=== PATIENT | male | born 1970 ===

== ENCOUNTER 2024-11-17 13:25 | Inpatient (IN) | payer MEDICAID, SELFPAY ==
[2024-11-17] VITALS (40 sets, daily range): BP systolic 72–152; BP diastolic 49–91; PULSE 97–150; RESP 15–48; TEMP 36.7–38.4; O2SAT 84–100; BMI 19.8
[2024-11-17] MEDS: SODIUM CHLORIDE 0.9% 1000 ML 1,000 ML 999 ML IV (13:30)
--- NOTE | 2024-11-17 13:35 | PD.EDSOB ---
ED SOB =RME/HPI General Chief Complaint: Shortness of Breath/Dyspnea Stated Complaint: SOB Time Seen by Provider: 11/17/24 13:25 Arrival date/time: 11/17/24 13:25 Limitations: no limitations RME / HPI RME / HPI Narrative: 54 year old male with history of chronic respiratory failure, quadriplegia, coccidioidomycosis, hypertension, diabetes, hyperlipidemia, hydrocephalus with presence of cerebrospinal fluid device, PEG tube placement presents to the ED BIBA from [facility] for evaluation of shortness of breath today. Per medics report, [place] staff reported the patient has had intermittent fevers beginning 3 days ago. This morning noted temperature to be 102.8F and saturating 30% on room air. Per medics, on 15L Oxy mask the patients oxygen saturations were 82%, HR 160's. and prehospital BS 145. NH state at baseline patient is a GCS of 14/15 with periods of forgetfulness. No further history obtainable from patient 2/2 acuity. Related Data Home Medications ?Medication ?Instructions ?Recorded ?Confirmed bisacodyl 10 mg rectal suppository 10 mg KS Q72H PRN constipation 11/18/24 11/18/24 bisacodyl 10 mg rectal suppository 10 mg KS QDAY PRN constipation 11/18/24 11/18/24 (Dulcolax (bisacodyl)) lorazepam 0.5 mg tablet (Ativan) 0.5 mg PO Q6H PRN anxiety 11/18/24 11/18/24 magnesium hydroxide 400 mg/5 mL 30 ml PO Q72H PRN constipation 11/18/24 11/18/24 oral suspension (Milk of Magnesia) morphine 20 mg/5 mL (4 mg/mL) oral 1 mg PO Q2H PRN pain (scale score 11/18/24 11/18/24 solution 1-3) morphine 20 mg/5 mL (4 mg/mL) oral 2 mg PO Q2H PRN pain (scale score 11/18/24 11/18/24 solution 4-6) morphine 20 mg/5 mL (4 mg/mL) oral 4 mg PO Q2H PRN pain (scale score 11/18/24 11/18/24 solution 7-10) sodium phosphates 19 gram-7 118 ml KS Q72H PRN constipation 11/18/24 11/18/24 gram/118 mL enema (Fleet Enema) Previous Rx's ?Medication ?Instructions ?Recorded atorvastatin 40 mg tablet 40 mg PO HS #30 tabs 11/20/24 ferrous sulfate 325 mg (65 mg 325 mg PO QDAY #30 tabs 11/20/24 iron) tablet (Feosol) amoxicillin 875 mg-potassium 1 tab feeding tube BID pneumonia 2 11/21/24 clavulanate 125 mg tablet days #4 tabs fluconazole 200 mg tablet 400 mg (2 x 200 mg) feeding tube 11/21/24 QDAY disseminated coccidioidomycosis #30 tabs Allergies Allergy/AdvReac Type Severity Reaction Status Date / Time No Known Allergies Allergy Verified 11/17/24 22:32 Review of Systems Review of Systems ROS Unobtainable: unobtainable due to mental status Past Medical History Social History SMOKING STATUS: Unknown if ever smoked ED Exam General Limitations: Present no limitations General appearance: Present in distress (respiratory, increased respiratory rate, contracted) Head Head exam: Present atraumatic and normocephalic Eye Eye exam: Present normal appearance and EOMI ENT ENT exam: Present normal exam, normal oropharynx and mucous membranes moist Neck Neck exam: Present full ROM and other (Old tracheostomy scar wound appears to be open) Chest Chest inspection: Present normal inspection and symmetric chest wall rise Respiratory Respiratory exam: Present respiratory distress and other (Bilateral crackles, rhonchi, and rales from the upper lobes to lower lobes, increased respiratory rate ) Cardiovascular Cardiovascular exam: Present tachycardia and normal heart sounds Abdominal Exam Abdominal exam: Present soft, normal bowel sounds and other (G-tube noted ) Extremities Exam Extremities exam: Present other (contracture) Back Exam Back exam: Present normal inspection and full ROM Skin Skin exam: Present warm, intact, normal color and diaphoresis Course Quality Measures Possible source: pulmonary Blood cultures ordered: yes Antibiotic ordered: Yes sepsis Orders Category Date Time Status Bedside COVID-19 Antigen Test NOW Care 11/17/24 15:56 Active Bedside Influenza A&B Antigen Test NOW Care 11/17/24 16:00 Completed COVID-19 Screening Questionnaire NOW Care 11/17/24 15:18 Active Marketing Co Op NOW Care 11/17/24 13:33 Active Continuous Pulse Oximetry NOW Care 11/17/24 13:33 Completed Decision to Admit X1 Care 11/17/24 15:18 Completed EKG (ED ONLY) *Do not use* NOW Care 11/17/24 13:33 Completed Insert IV NOW Care 11/17/24 13:33 Active Intubation NOW Care 11/17/24 13:45 Completed Referral Respiratory Therapy Stat Cons 11/17/24 13:33 Active EKG (ED Only) Stat Exams 11/17/24 13:33 Ordered XR chest 1V post procedure Stat Exams 11/17/24 13:49 Completed ABG [Arterial Blood Gas] Stat Lab 11/17/24 15:48 Completed Arterial Blood Gas Stat Lab 11/17/24 14:05 Completed B-Type Natriuretic Peptide Stat Lab 11/17/24 14:05 Completed Blood Culture (Lab) Stat Lab 11/17/24 14:05 Results CBC Stat Lab 11/17/24 14:05 Completed Comprehensive Metabolic Panel Stat Lab 11/17/24 14:05 Completed Partial Thromboplastin Time Stat Lab 11/17/24 14:05 Completed Prothrombin Time with INR Stat Lab 11/17/24 14:05 Completed Sputum Culture and Gram Stain Stat Lab 11/17/24 13:56 Completed Troponin I Stat Lab 11/17/24 14:05 Completed ALBUTEROL RT 0.5ml [Proventil Rt 0.5ml] Med 11/17/24 13:33 Discontinued 5 mg INH X1 ONE Azithromycin Inj [Zithromax Inj] 500 mg Med 11/17/24 13:37 Discontinued Sodium Chloride 0.9% 250 ml [Ns] 250 ml IV X1 Azithromycin Inj [Zithromax Inj] 500 mg Med 11/17/24 15:00 Discontinued Sodium Chloride 0.9% 250 ml [Ns] 250 ml IV X1 Dexamethasone Inj [Decadron Inj] Med 11/17/24 13:33 Discontinued 10 mg PO X1 ONE Etomidate Inj [Amidate Inj] Med 11/17/24 13:35 Discontinued 20 mg .ROUTE .STK-MED ONE Etomidate Inj [Amidate Inj] Med 11/17/24 13:35 Discontinued 20 mg IVP X1 ONE Pamidronate Inj [Aredia Inj] Med 11/17/24 15:23 Discontinued 60 mg IV X1 ONE Pamidronate Inj [Aredia Inj] 60 mg Med 11/17/24 15:45 Discontinued Dextrose 5%-Water [D5w] 1,000 ml IV X1 Pamidronate Inj [Aredia Inj] 60 mg Med 11/17/24 15:30 Discontinued Sodium Chloride 0.9% 500 ml [Ns] 500 ml IV X1 Propofol 1,000 mg Ivpb [Diprivan Ivpb] Med 11/17/24 13:54 Discontinued 1,000 mg in 100 ml IV 5 mcg/kg/min Propofol Inj [Diprivan Inj] Med 11/17/24 13:53 Discontinued 80 mg IV X1 ONE Sodium Chloride 0.9% 1000 ml [Ns] 1,000 ml Med 11/17/24 13:33 Discontinued IV 999 mls/hr Sodium Chloride Rt Nicolette 0.9% [NS Rt Nicolette 0.9%] Med 11/17/24 13:33 Active 3 ml INH PRN PRN Sodium Chloride Rt Nicolette 10% [NS Rt Nicolette 10%] Med 11/17/24 13:54 Discontinued 5 ml INH X1 ONE Succinylcholine Inj [Anectine Inj] Med 11/17/24 13:35 Discontinued 100 mg IV X1 ONE Succinylcholine Inj [Anectine Inj] Med 11/17/24 13:35 Discontinued 200 mg .ROUTE .STK-MED ONE cefTRIAXone [Rocephin] 2 gm Med 11/17/24 14:30 Discontinued SODIUM CHLORIDE 0.9% (Popper) [Ns 0.9% (P)] 50 ml IV X1 cefTRIAXone/D5w 2gm [Rocephin/d5w 2gm] Med 11/17/24 14:45 Discontinued 2 gm in 50 ml IV X1 Mechanical [Volume Ventilator] Stat RT 11/17/24 Active Oxygen Delivery NOW RT 11/17/24 13:33 Active Sputum Induction PRN RT 11/17/24 14:00 Ordered Vital Signs Vital signs: Vital Signs Pulse Rate 123 H 11/17/24 13:25 Respiratory Rate 36 H 11/17/24 13:25 Pulse Oximetry (%) 84 L 11/17/24 13:25 Oxygen Flow Rate 15 11/17/24 13:25 Procedures -ED Intubation Time out performed: Yes sedative: Etomidate Mg Given: 20 paralytic: Succinylcholine Mg Given: 100 Laryngoscope: fiber optic video scope Assist Device Used: fiber optic device ET Tube Size: 7 ET Tube Uncuffed: No Tube Secured Depth (cm): 23 Tube Secured Location: teeth Tube Placement Confirmation: visualized tube passing through cords, equal breath sounds bilaterally, no breath sounds over epigastrium and confirmation by capnometry Patient Tolerated Procedure: well and no complications Intubation Complications: none Shortness of Breath / Dyspnea MDM Narrative MDM Narrative:: Andie Lima am scribing for and in the presence of Dr. Rivera. Patient data External records reviewed:: EMS form and Jail records (I reviewed PMHx and medication list from [facility] ) Clinical information provided by:: EMS Social determinants that could affect healthcare access:: housing ([place] resident ) Patient has the following chronic illnesses:: chronic respiratory failure, quadriplegia, coccidioidomycosis, hypertension, diabetes, hyperlipidemia, hydrocephalus with presence of cerebrospinal fluid device, G-tube placement How is presenting disease/condition affected by chronic disease/condition?: exacerbated by Evaluation data The following diagnostics were reviewed and interpreted by me:: lab results, radiology exam(s) and EKG tracing(s) (EKG 11/17/2024 @ 13:36. Sinus tachycardia, rate 133, nonspecific ST and T-wave abnormality, no STEMI ) Lab and/or radiology exams considered but not ordered:: None Interpretation Summary: Ordering Physician: Tr Rivera MD Date of Service: 11/17/24 Procedure(s): XR chest 1V post procedure Accession Number(s): [id number] cc: Tr Rivera MD; Jose Gomes MD~ Examination: AP chest single view TECHNIQUE: AP portable semiupright chest single view INDICATIONS: Hypoxic respiratory failure today post intubation FINDINGS: Normal heart size Pneumonia left base Endotracheal tube tip 5.8 cm above micki. Orogastric tube in the stomach, the tip is below the level of the film Right ventricular peritoneal shunt tube IMPRESSION: Pneumonia left base, consider aspiration pneumonia Endotracheal tube tip 5.8 cm above micki Dictated By: Jose Gomes MD Signed By: <Electronically signed by Jose Gomes MD in OV> 11/17/24 1405 Medications / Prescriptions Medications or Prescriptions considered but not ordered:: None Medication administrations:: Medication Administration History Acetaminophen (Acetaminophen Nicolette 325 Mg/10 Ml Udc) 650 mg GT Q4HR PRN; Protocol PRN Reason: Pain Or Fever > 100.3 Stop: 12/18/24 07:33 Atorvastatin Calcium (Atorvastatin Calcium 20 Mg Tablet) 40 mg PO HS MCKENZIE Stop: 12/20/24 20:59 Last Admin: 11/22/24 21:04 Dose: 40 mg Documented By: Admin: 11/21/24 20:14 Dose: 40 mg Documented By: Admin: 11/20/24 20:02 Dose: 40 mg Documented By: NELLI Balsam Elizabeth/Julian Oil (Balsam Gregory/Julian Oil (Venelex) 60 Gm Tube) 0 gm TOP BID MCKENZIE Stop: 12/18/24 20:59 Last Admin: 11/22/24 21:06 Dose: 1 appln Documented By: Admin: 11/22/24 08:01 Dose: 1 appln Documented By: Admin: 11/21/24 20:14 Dose: 1 appln Documented By: Admin: 11/21/24 09:02 Dose: 1 appln Documented By: Admin: 11/20/24 20:03 Dose: 1 appln Documented By: Admin: 11/20/24 09:22 Dose: 1 appln Documented By: Admin: 11/19/24 20:14 Dose: 1 appln Documented By: Admin: 11/19/24 08:36 Dose: 1 appln Documented By: Admin: 11/18/24 21:03 Dose: 1 appln Documented By: JOHN Bisacodyl (Bisacodyl 10 Mg Supp) 10 mg KS Q72H PRN; Protocol PRN Reason: constipation Stop: 12/18/24 15:20 Desmopressin Acetate (Desmopressin Acet Inj 4 Mcg/Ml Vial 10ml) 2 mcg SC DAILY MCKENZIE Stop: 12/23/24 08:59 Dextrose (Dextrose 50%-Water Inj 50 Ml Syringe) 50 ml IV Q15MIN PRN PRN Reason: BG <50 OR BG <70 & pt unresponsive Stop: 12/17/24 18:24 Enoxaparin Sodium (Enoxaparin Sod Inj 40 Mg/0.4 Ml Syringe) 40 mg SC QDAY MCKENZIE Stop: 12/01/24 17:14 Last Admin: 11/22/24 08:00 Dose: 40 mg Documented By: Admin: 11/21/24 08:55 Dose: 40 mg Documented By: Admin: 11/20/24 09:22 Dose: 40 mg Documented By: Admin: 11/19/24 08:36 Dose: 40 mg Documented By: Admin: 11/18/24 08:23 Dose: 40 mg Documented By: Admin: 11/17/24 18:14 Dose: 40 mg Documented By: FLACO Fluconazole (Fluconazole Susp 40 Mg/Ml Ml) 400 mg GT BID MCKENZIE Stop: 11/27/24 20:59 Last Admin: 11/22/24 21:05 Dose: 400 mg Documented By: Admin: 11/22/24 08:00 Dose: 400 mg Documented By: Admin: 11/21/24 20:44 Dose: 400 mg Documented By: Admin: 11/21/24 09:02 Dose: 400 mg Documented By: Admin: 11/20/24 20:02 Dose: 400 mg Documented By: NELLI Glucagon (Glucagon Inj 1 Mg Vial) 1 mg IM Q15MIN PRN PRN Reason: BG <70, and no IV access Ceftriaxone Sodium/Dextrose (Rocephin/D5w 1gm Iv Premix) 1 gm in 50 mls @ 100 mls/hr IV QDAY MCKENZIE Stop: 11/26/24 09:16 Last Infusion: 11/22/24 19:21 Dose: Infused Documented By: Admin: 11/22/24 08:00 Dose: 100 mls/hr Documented By: Infusion: 11/21/24 19:37 Dose: Infused Documented By: Admin: 11/21/24 08:56 Dose: 100 mls/hr Documented By: Infusion: 11/20/24 09:51 Dose: Infused Documented By: Admin: 11/20/24 09:21 Dose: 100 mls/hr Documented By: Infusion: 11/19/24 10:18 Dose: Infused Documented By: Admin: 11/19/24 09:34 Dose: 100 mls/hr Documented By: DOROTHEA Dextrose (D5w) 1,000 mls @ 75 mls/hr IV .[id number] MCKENZIE Stop: 12/20/24 00:59 Last Admin: 11/22/24 21:04 Dose: 75 mls/hr Documented By: Infusion: 11/22/24 19:37 Dose: Infused Documented By: Admin: 11/22/24 06:17 Dose: 75 mls/hr Documented By: Infusion: 11/22/24 06:17 Dose: Infused Documented By: Admin: 11/21/24 17:49 Dose: 75 mls/hr Documented By: Infusion: 11/21/24 17:49 Dose: Infused Documented By: Admin: 11/21/24 05:00 Dose: 75 mls/hr Documented By: Infusion: 11/21/24 04:09 Dose: Infused Documented By: Admin: 11/20/24 14:49 Dose: 75 mls/hr Documented By: Infusion: 11/20/24 14:15 Dose: Infused Documented By: Admin: 11/20/24 00:55 Dose: 75 mls/hr Documented By: NELLI Insulin Human Lispro (Insulin Lispro (Admelog) 1 Unit/0.01 Ml Unit) 0 unit SC Q6HR MCKENZIE; Protocol Stop: 12/17/24 18:29 Last Admin: 11/23/24 05:14 Dose: Not Given Documented By: KAA Non-Admin Reason: Per Protocol Admin: 11/22/24 23:56 Dose: Not Given Documented By: KAA Non-Admin Reason: Per Protocol Admin: 11/22/24 17:37 Dose: Not Given Documented By: WL Non-Admin Reason: Per Protocol Admin: 11/22/24 12:21 Dose: Not Given Documented By: WL Non-Admin Reason: Per Protocol Admin: 11/22/24 05:04 Dose: Not Given Documented By: KAA Non-Admin Reason: Per Protocol Admin: 11/22/24 00:41 Dose: Not Given Documented By: KAA Non-Admin Reason: Per Protocol Admin: 11/21/24 17:49 Dose: Not Given Documented By: ER Non-Admin Reason: BS 132 Admin: 11/21/24 13:21 Dose: Not Given Documented By: ER Non-Admin Reason: BS 115 Admin: 11/21/24 05:03 Dose: Not Given Documented By: CMC Non-Admin Reason: Per Protocol Admin: 11/20/24 23:39 Dose: Not Given Documented By: CMC Non-Admin Reason: Per Protocol Admin: 11/20/24 18:04 Dose: 1 unit Documented By: CAROLINE Co-signed By: TRUPTI Admin: 11/20/24 12:30 Dose: Not Given Documented By: DL Non-Admin Reason: Per Protocol Admin: 11/20/24 05:09 Dose: Not Given Documented By: CMC Non-Admin Reason: Per Protocol Admin: 11/19/24 23:07 Dose: Not Given Documented By: CMC Non-Admin Reason: Per Protocol Admin: 11/19/24 17:35 Dose: Not Given Documented By: DA Non-Admin Reason: Per Protocol Admin: 11/19/24 12:40 Dose: Not Given Documented By: KD Non-Admin Reason: Per Protocol Admin: 11/19/24 05:28 Dose: Not Given Documented By: JOHN Non-Admin Reason: Per Protocol Admin: 11/19/24 00:36 Dose: Not Given Documented By: JOHN Non-Admin Reason: Per Protocol Admin: 11/18/24 17:19 Dose: Not Given Documented By: DOROTHEA Non-Admin Reason: Per Protocol Admin: 11/18/24 11:19 Dose: Not Given Documented By: DOROTHEA Non-Admin Reason: Per Protocol Admin: 11/18/24 05:47 Dose: Not Given Documented By: JOHN Non-Admin Reason: Per Protocol Admin: 11/18/24 00:37 Dose: Not Given Documented By: JOHN Non-Admin Reason: Per Protocol Admin: 11/17/24 20:53 Dose: Not Given Documented By: JOHN Non-Admin Reason: not administered by previous unit Lactulose (Lactulose Syrup 20 Gm/30 Ml Udc) 10 gm GT DAILY MCKENZIE; Protocol Stop: 12/20/24 08:59 Last Admin: 11/22/24 08:00 Dose: 10 gm Documented By: Admin: 11/21/24 08:54 Dose: 10 gm Documented By: Admin: 11/20/24 09:22 Dose: 10 gm Documented By: CAROLINE Lansoprazole (Lansoprazole 30 Mg Tab.Rap.) 30 mg GT QDAY MCKENZIE Stop: 12/17/24 17:14 Last Admin: 11/22/24 08:02 Dose: 30 mg Documented By: Admin: 11/21/24 08:55 Dose: 30 mg Documented By: ER Morphine Sulfate (Morphine Sulf Liqd 10 Mg/5 Ml Udc) 4 mg GT Q2H PRN PRN Reason: pain (scale score 7-10) Stop: 11/23/24 15:28 Morphine Sulfate (Morphine Sulf Liqd 10 Mg/5 Ml Udc) 1 mg GT Q2H PRN; Protocol PRN Reason: pain (scale score 1-3) Stop: 11/23/24 15:28 Last Admin: 11/19/24 08:36 Dose: 1 mg Documented By: DOROTHEA Morphine Sulfate (Morphine Sulf Liqd 10 Mg/5 Ml Udc) 2 mg GT Q2H PRN PRN Reason: pain (scale score 4-6) Stop: 11/23/24 15:24 Last Admin: 11/23/24 05:07 Dose: 2 mg Documented By: Admin: 11/22/24 12:52 Dose: 2 mg Documented By: DOROTHEA Sodium Chloride (Sodium Chloride Rt Nicolette 0.9% 3 Ml Nebu) 3 ml INH PRN PRN PRN Reason: SOLN Stop: 12/17/24 13:32 Last Admin: 11/17/24 14:48 Dose: 3 ml Documented By: AURA Discontinued Medications Albuterol (Albuterol Rt 2.5 Mg/0.5 Ml Nebu) 5 mg INH X1 ONE Stop: 11/17/24 13:34 Last Admin: 11/17/24 14:48 Dose: 5 mg Documented By: AURA Desmopressin Acetate (Desmopressin Acetate 4 Mcg/Ml Vial) 4 mcg IV X1 ONE Stop: 11/22/24 11:51 Last Admin: 11/22/24 12:25 Dose: 4 mcg Documented By: DOROTHEA Dexamethasone Sodium Phosphate (Dexamethasone Sod Phos Inj 10 Mg/Ml Vial) 10 mg PO X1 ONE Stop: 11/17/24 13:34 Last Admin: 11/17/24 15:25 Dose: Not Given Documented By: FLACO Non-Admin Reason: Cancelled by Provider Etomidate (Etomidate Inj 2 Mg/Ml Vial 10 Ml) 20 mg IVP X1 ONE Stop: 11/17/24 13:36 Last Admin: 11/17/24 13:43 Dose: 20 mg Documented By: FLACO Etomidate (Etomidate Inj 2 Mg/Ml Vial 10 Ml) Confirm Administered Dose 20 mg .ROUTE .STK-MED ONE Stop: 11/17/24 13:36 Last Admin: 11/17/24 15:37 Dose: Not Given Documented By: FLACO Non-Admin Reason: Duplicate Medication on eMAR Fluconazole (Fluconazole Susp 40 Mg/Ml Ml) 200 mg GT QDAY MCKENZIE Stop: 11/24/24 17:14 Last Admin: 11/20/24 09:21 Dose: 200 mg Documented By: Admin: 11/19/24 09:10 Dose: 200 mg Documented By: Admin: 11/18/24 08:24 Dose: 200 mg Documented By: Admin: 11/17/24 19:05 Dose: 200 mg Documented By: FLACO Sodium Chloride (Ns) 1,000 mls @ 999 mls/hr IV .Q1H1M ONE Stop: 11/17/24 14:33 Last Infusion: 11/17/24 15:48 Dose: Infused Documented By: Admin: 11/17/24 13:30 Dose: 999 mls/hr Documented By: FLACO Azithromycin 500 mg/ Sodium (Chloride) 250 mls @ 250 mls/hr IV X1 ONE Stop: 11/17/24 14:36 Last Admin: 11/17/24 15:50 Dose: Not Given Documented By: FLACO Non-Admin Reason: Cancelled by Provider Ceftriaxone Sodium 2 gm/ (Sodium Chloride) 50 mls @ 100 mls/hr IV X1 ONE Stop: 11/17/24 14:59 Last Admin: 11/17/24 15:50 Dose: Not Given Documented By: FLACO Non-Admin Reason: Cancelled by Provider Propofol (Diprivan Ivpb) 1,000 mg in 100 mls @ 1.877 mls/hr IV .Q24H PRN; Protocol PRN Reason: PER PROTOCOL Stop: 12/17/24 13:53 Last Titration: 11/17/24 22:00 Dose: 40 mcg/kg/min, 15.012 mls/hr Documented By: Titration: 11/17/24 21:00 Dose: 40 mcg/kg/min, 15.012 mls/hr Documented By: Titration: 11/17/24 20:30 Dose: 40 mcg/kg/min, 15.012 mls/hr Documented By: Titration: 11/17/24 20:25 Dose: 35 mcg/kg/min, 13.136 mls/hr Documented By: Titration: 11/17/24 20:20 Dose: 30 mcg/kg/min, 11.259 mls/hr Documented By: Titration: 11/17/24 20:15 Dose: 25 mcg/kg/min, 9.383 mls/hr Documented By: Titration: 11/17/24 20:05 Dose: 20 mcg/kg/min, 7.506 mls/hr Documented By: Titration: 11/17/24 19:07 Dose: 20 mcg/kg/min, 7.506 mls/hr Documented By: Admin: 11/17/24 15:30 Dose: 5 mcg/kg/min, 1.877 mls/hr Documented By: FLACO Co-signed By: JABARI Azithromycin 500 mg/ Sodium (Chloride) 250 mls @ 250 mls/hr IV X1 ONE Stop: 11/17/24 15:59 Last Infusion: 11/17/24 17:33 Dose: Infused Documented By: Admin: 11/17/24 15:41 Dose: 250 mls/hr Documented By: CG Ceftriaxone Sodium/Dextrose (Rocephin/D5w 2gm) 2 gm in 50 mls @ 100 mls/hr IV X1 ONE Stop: 11/17/24 15:14 Last Infusion: 11/17/24 15:47 Dose: Infused Documented By: Admin: 11/17/24 15:00 Dose: 100 mls/hr Documented By: FLACO Pamidronate Disodium 60 mg/ (Sodium Chloride) 520 mls @ 130 mls/hr IV X1 ONE Stop: 11/17/24 19:29 Last Admin: 11/18/24 08:15 Dose: Not Given Documented By: DOROTHEA Non-Admin Reason: Cancelled by Provider Pamidronate Disodium 60 mg/ (Dextrose) 1,006.6667 mls @ 250 mls/hr IV X1 ONE Stop: 11/17/24 19:46 Last Admin: 11/17/24 16:17 Dose: 250 mls/hr Documented By: FLACO Co-signed By: JARRED Ceftriaxone Sodium/Dextrose (Rocephin/D5w 1gm Iv Premix) 1 gm in 50 mls @ 100 mls/hr IV QDAY MCKENZIE Stop: 11/25/24 21:08 Azithromycin 500 mg/ Sodium (Chloride) 250 mls @ 250 mls/hr IV QDAY MCKENZIE Stop: 11/19/24 20:59 Last Infusion: 11/19/24 10:18 Dose: Infused Documented By: Admin: 11/19/24 08:35 Dose: 250 mls/hr Documented By: Infusion: 11/18/24 22:03 Dose: Infused Documented By: Admin: 11/18/24 21:03 Dose: 250 mls/hr Documented By: JOHN Piperacillin Sod/Tazobactam (Sod 4.5 gm/ Sodium Chloride) 100 mls @ 200 mls/hr IV Q6HR MCKENZIE Stop: 11/24/24 18:23 Last Infusion: 11/19/24 10:18 Dose: Infused Documented By: Admin: 11/19/24 05:32 Dose: 200 mls/hr Documented By: Infusion: 11/19/24 01:10 Dose: Infused Documented By: Admin: 11/19/24 00:40 Dose: 200 mls/hr Documented By: Infusion: 11/18/24 17:53 Dose: Infused Documented By: Admin: 11/18/24 17:23 Dose: 200 mls/hr Documented By: Infusion: 11/18/24 16:42 Dose: Infused Documented By: Admin: 11/18/24 11:15 Dose: 200 mls/hr Documented By: Infusion: 11/18/24 06:21 Dose: Infused Documented By: Admin: 11/18/24 05:51 Dose: 200 mls/hr Documented By: Infusion: 11/18/24 01:09 Dose: Infused Documented By: Admin: 11/18/24 00:39 Dose: 200 mls/hr Documented By: Infusion: 11/17/24 22:09 Dose: Infused Documented By: Admin: 11/17/24 21:39 Dose: 200 mls/hr Documented By: JOHN Comments: not administered in previous unit, MD Root provided orders to administer late Propofol (Diprivan Ivpb) 1,000 mg in 100 mls @ 1.877 mls/hr IV .Q24H PRN; Protocol PRN Reason: PER PROTOCOL Stop: 12/17/24 13:53 Last Titration: 11/18/24 10:20 Dose: 0 mcg/kg/min, 0 mls/hr Documented By: Titration: 11/18/24 10:00 Dose: 20 mcg/kg/min, 7.506 mls/hr Documented By: Titration: 11/18/24 09:00 Dose: 20 mcg/kg/min, 7.506 mls/hr Documented By: Admin: 11/18/24 08:22 Dose: 20 mcg/kg/min, 7.506 mls/hr Documented By: DOROTHEA Co-signed By: ER Titration: 11/18/24 08:00 Dose: Infused Documented By: Titration: 11/18/24 07:30 Dose: 25 mcg/kg/min, 9.383 mls/hr Documented By: Titration: 11/18/24 07:00 Dose: 30 mcg/kg/min, 11.259 mls/hr Documented By: Titration: 11/18/24 06:00 Dose: 30 mcg/kg/min, 11.259 mls/hr Documented By: Titration: 11/18/24 05:00 Dose: 30 mcg/kg/min, 11.259 mls/hr Documented By: Titration: 11/18/24 04:00 Dose: 30 mcg/kg/min, 11.259 mls/hr Documented By: Titration: 11/18/24 03:00 Dose: 30 mcg/kg/min, 11.259 mls/hr Documented By: Titration: 11/18/24 02:00 Dose: 30 mcg/kg/min, 11.259 mls/hr Documented By: Titration: 11/18/24 01:00 Dose: 30 mcg/kg/min, 11.259 mls/hr Documented By: Titration: 11/18/24 00:00 Dose: 30 mcg/kg/min, 11.259 mls/hr Documented By: Titration: 11/17/24 23:30 Dose: 35 mcg/kg/min, 13.136 mls/hr Documented By: Admin: 11/17/24 23:00 Dose: 40 mcg/kg/min, 15.012 mls/hr Documented By: JOHN Co-signed By: Vancomycin/Sodium Chloride (Vancomycin/Ns 1 Gm Ivpb) 200 mls @ 120 mls/hr IV X1 ONE Stop: 11/18/24 11:09 Last Admin: 11/18/24 11:15 Dose: 120 mls/hr Documented By: DOROTHEA Potassium Chloride (Kcl Ivpb) 10 meq in 100 mls @ 100 mls/hr IV Q1H MCKENZIE Stop: 11/19/24 18:59 Last Admin: 11/19/24 21:46 Dose: 70 mls/hr Documented By: Infusion: 11/19/24 21:39 Dose: Infused Documented By: Admin: 11/19/24 20:13 Dose: 70 mls/hr Documented By: Infusion: 11/19/24 19:58 Dose: Infused Documented By: Admin: 11/19/24 18:32 Dose: 70 mls/hr Documented By: Infusion: 11/19/24 18:12 Dose: Infused Documented By: Admin: 11/19/24 17:12 Dose: 100 mls/hr Documented By: BINA Magnesium Sulfate (Magnesium Sulfate Ivpb) 2 gm in 50 mls @ 25 mls/hr IV X1 ONE Stop: 11/19/24 16:57 Last Admin: 11/19/24 17:12 Dose: 25 mls/hr Documented By: BINA Sodium Phosphate 22.5 mmol/ (Sodium Chloride) 507.5 mls @ 82.778 mls/hr IV X1 ONE Stop: 11/20/24 13:31 Last Admin: 11/20/24 09:17 Dose: Not Given Documented By: CAROLINE Non-Admin Reason: Discontinued Potassium Phosphate 22.5 mmol/ (Sodium Chloride) 507.5 mls @ 82.778 mls/hr IV X1 ONE Stop: 11/20/24 13:49 Last Admin: 11/20/24 09:21 Dose: 82.778 mls/hr Documented By: CAROLINE Magnesium Sulfate (Magnesium Sulfate Ivpb) 4 gm in 50 mls @ 12.5 mls/hr IV X1 ONE Stop: 11/21/24 11:40 Last Infusion: 11/21/24 19:37 Dose: Infused Documented By: Admin: 11/21/24 08:56 Dose: 12.5 mls/hr Documented By: ER Lactulose (Lactulose Syrup 20 Gm/30 Ml Udc) 10 gm PO TID MCKENZIE; Protocol Stop: 12/18/24 09:29 Last Admin: 11/18/24 15:18 Dose: Not Given Documented By: DOROTHEA Non-Admin Reason: Cancelled by Provider Lactulose (Lactulose Syrup 20 Gm/30 Ml Udc) 10 gm GT TID MCKENZIE; Protocol Stop: 12/18/24 09:59 Last Admin: 11/19/24 13:25 Dose: Not Given Documented By: BINA Non-Admin Reason: Held per Dr. Jordan Comments: Pt had 3 bm's today. Admin: 11/19/24 05:33 Dose: 10 gm Documented By: Admin: 11/18/24 21:04 Dose: 10 gm Documented By: Admin: 11/18/24 13:47 Dose: 10 gm Documented By: Admin: 11/18/24 11:14 Dose: 10 gm Documented By: DOROTHEA Pamidronate Disodium (Pamidronate Inj 90 Mg/10 Ml Vial) 60 mg IV X1 ONE Stop: 11/17/24 15:24 Last Admin: 11/18/24 08:15 Dose: Not Given Documented By: DOROTHEA Non-Admin Reason: Cancelled by Provider Pantoprazole Sodium (Pantoprazole Inj 40 Mg Vial) 40 mg IVP QDAY MCKENZIE Stop: 12/17/24 17:14 Last Admin: 11/20/24 09:22 Dose: 40 mg Documented By: Admin: 11/19/24 08:35 Dose: 40 mg Documented By: Admin: 11/18/24 08:21 Dose: 40 mg Documented By: Admin: 11/17/24 18:13 Dose: 40 mg Documented By: FLACO Potassium Chloride (Potassium Chloride 10% 20 Meq/15 Ml Udc) 40 meq GT X1 ONE Stop: 11/18/24 12:01 Last Admin: 11/18/24 11:15 Dose: 40 meq Documented By: DOROTHEA Potassium Chloride (Potassium Chloride 10% 20 Meq/15 Ml Udc) 40 meq GT X1 ONE Stop: 11/18/24 07:31 Last Admin: 11/18/24 08:23 Dose: 40 meq Documented By: WL Potassium Chloride (Potassium Chloride 10% 20 Meq/15 Ml Udc) 40 meq GT X1 ONE Stop: 11/19/24 06:29 Last Admin: 11/19/24 06:34 Dose: 40 meq Documented By: JOHN Potassium Chloride (Potassium Chloride 20 Meq Tabcr) 40 meq PO X1 ONE Stop: 11/19/24 14:59 Last Admin: 11/19/24 17:13 Dose: Not Given Documented By: BINA Non-Admin Reason: Pharmacy to switch to gtube Potassium Chloride (Potassium Chloride 10% 20 Meq/15 Ml Udc) 40 meq GT X1 ONE Stop: 11/19/24 17:16 Last Admin: 11/19/24 17:14 Dose: 40 meq Documented By: KD Potassium Chloride (Potassium Chloride 10% 20 Meq/15 Ml Udc) 40 meq GT X1 ONE Stop: 11/21/24 07:34 Last Admin: 11/21/24 08:55 Dose: 40 meq Documented By: ER Potassium Chloride (Potassium Chloride 10% 20 Meq/15 Ml Udc) 40 meq GT X1 ONE Stop: 11/22/24 07:12 Last Admin: 11/22/24 07:57 Dose: 40 meq Documented By: DOROTHEA Potassium Phos/Sodium Phos (Naph,[facility] Mbdb 1 Packet (1.5 Gm)) 1 packet GT X1 ONE Stop: 11/22/24 08:01 Last Admin: 11/22/24 08:08 Dose: 1 packet Documented By: DOROTHEA Propofol (Propofol Inj 10 Mg/Ml Vial 20 Ml) 80 mg IV X1 ONE Stop: 11/17/24 13:54 Last Admin: 11/17/24 15:39 Dose: 80 mg Documented By: FLACO Sodium Chloride (Sodium Chloride Rt 10% 15 Ml Nebu) 5 ml INH X1 ONE Stop: 11/17/24 13:55 Last Admin: 11/17/24 14:58 Dose: Not Given Documented By: AURA Non-Admin Reason: Other, see note Comments: induction not needed Succinylcholine Chloride (Succinylcholine Inj 20 Mg/Ml Vial 10 Ml) 100 mg IV X1 ONE Stop: 11/17/24 13:36 Last Admin: 11/17/24 13:44 Dose: 100 mg Documented By: FLACO Succinylcholine Chloride (Succinylcholine Inj 20 Mg/Ml Vial 10 Ml) Confirm Administered Dose 200 mg .ROUTE .STK-MED ONE Stop: 11/17/24 13:36 Last Admin: 11/17/24 15:39 Dose: Not Given Documented By: FLACO Non-Admin Reason: Duplicate Medication on eMAR See above Consultations Consultation(s) initiated? (list below): Yes Consultation #1 (Physician, Specialty, Details): I spoke with vp strategic partnerships Dr. Prado. Discussed patients PMHx, HPI, ED course, exam findings, labs, and radiology results. She accepts the patient for admission to ICU. Diagnosis Shortness of Breath Differential Diagnosis: acute exacerbation of chronic obstructive airways disease, congestive heart failure, community acquired pneumonia, asthma with exacerbation and other (respiratory failure ) Most likely diagnosis given after review of the tests above:: Acute respiratory failure Pneumonia Hyperosmolar coma Hypercalcemia s/p intubation Admission Indicated Admission indicated?: indicated Admission Request Was there a request for admission?: Yes Admission Attestation Admission request attestation: Discussed case with [] from Hospitalist service regarding admission. Discussed patients ED course, exam findings, labs, and radiology results. The Hospitalist [agrees,declines] to accept the patient for admission. Disposition Plan Disposition Plan: Admit Critical Care Time Critical Care Time Critical Care Time: Yes Total Critical Care Time (min.): 60 Attestation: The high probability of sudden, clinically significant deterioration in the patient's condition required the highest level of my preparedness to intervene urgently. The services I provided to this patient were to treat and/or prevent clinically significant deterioration. Services included the following: chart data review, reviewing nursing notes and/or old charts, documentation time, [employer] consultant collaboration regarding findings and treatment options, medication orders and management, direct patient care, vital sign assessments and ordering, interpreting and reviewing diagnostic studies and lab tests. Aggregate critical care time includes only time during which I was engaged in work directly related to the patient's care, as described above, whether at bedside or elsewhere in the Emergency Department. It did not include time spent performing other reported procedures or the services of residents, students, nurses or physician assistants. Discharge Plan Plan Patient Disposition: Admit Acute Care w/in Hospital Problem List Clinical Impression: Acute respiratory failure, Pneumonia, Hyperosmolar coma, Hypercalcemia
[2024-11-17] MEDS: ETOMIDATE INJ 2 MG/ML VIAL 10 ML 20 MG IVP (13:43)
[2024-11-17] MEDS: SUCCINYLCHOLINE INJ 20 MG/ML VIAL 10 ML 100 MG IV (13:44)
--- NOTE | 2024-11-17 13:49 | XR_ITS ---
Examination: AP chest single view TECHNIQUE: AP portable semiupright chest single view INDICATIONS: Hypoxic respiratory failure today post intubation FINDINGS: Normal heart size Pneumonia left base Endotracheal tube tip 5.8 cm above micki. Orogastric tube in the stomach, the tip is below the level of the film Right ventricular peritoneal shunt tube IMPRESSION: Pneumonia left base, consider aspiration pneumonia Endotracheal tube tip 5.8 cm above micki
[2024-11-17 14:11] LABS: Base Excess 16 (-3-3); HCO3 45 mEq/L (20-26); Inspired Oxygen, FIO2 100 %; O2 Saturation 100 % (91-98); PCO2 75 mmHg (32.0-48.0); PO2 166 mmHg (83-108); pH, Arterial 7.39 (7.35-7.45)
[2024-11-17 14:12] LABS: Basophils % (Auto) 0 % (0-2.5); Eosinophils # (Auto) 0.2 Thou/mm3 (0.0-0.5); Eosinophils % (Auto) 3 % (0-10); Hematocrit 39.4 % (41.0-53.0); Hemoglobin 11.8 g/dL (13.5-16.0); Immature Granulocytes % (Auto) 0 % (0-0); Immature Granulocytes Auto 0.02 Thou/mm3 (0.00-0.00); Lymphocytes # (Auto) 3.6 Thou/mm3 (1.0-4.8); Lymphocytes % (Auto) 44 % (10-50); Mean Corpuscular HGB Conc 29.9 g/dl (31.0-37.0); Mean Corpuscular Hemoglobin 25.8 pg (25.0-35.0); Mean Corpuscular Volume 86 fL (80-100); Monocytes # (Auto) 0.4 Thou/mm3 (0.0-0.8); Monocytes % (Auto) 5 % (0-12); Neutrophils # (Auto) 3.9 Thou/mm3 (1.8-7.7); Neutrophils % (Auto) 48 % (37-80); Nucleated Red Blood Cell % 0 /100 WBC (0); Platelet Count 354 Thou/mm3 (140-440); RDW Standard Deviation 58.5 fL (35.1-43.9); Red Blood Count 4.57 Miln/mm3 (4.50-5.90); White Blood Count 8.2 Thou/mm3 (3.8-10.6)
[2024-11-17 14:16] LABS: Allen Test Performed/OK; Puncture Site Right Radial
[2024-11-17 14:40] LABS: INR 1.1 (0.9-1.3); Partial Thromboplastin Time 22.7 Seconds (22.0-36.0); Prothrombin Time 11.7 Seconds (9.0-12.2)
[2024-11-17 14:47] LABS: Alanine Aminotransferase 21 U/L (10-49); Albumin, Serum 4.4 gm/dL (3.5-5.0); Albumin/Globulin Ratio 1.2 (1.2-2.2); Alkaline Phosphatase 155 U/L (46-116); Anion Gap 13 (7-16); B-Type Natriuretic Peptide < 20 pg/mL (0-100); BUN/Creatinine Ratio 38 Ratio (12-20); Bilirubin,Total < 0.2 mg/dL (0.3-1.2); Blood Urea Nitrogen 34 mg/dL (9-23); Carbon Dioxide > 40.0 mMol/L (20.0-31.0); Chloride 113 mMol/L (98-107); Creatinine (Component) 0.9 mg/dL (0.6-1.3); Globulin 3.7 gm/dL (2.3-3.5); Glucose 137 mg/dL (74-106); Osmolality,Calculated 337 (275-295); Total Protein 8.1 gm/dL (5.7-8.2); Troponin I 0.037 ng/mL (0.0-0.045); eGFR > 60 See Note
[2024-11-17] MEDS: SODIUM CHLORIDE RT SOL 0.9% 3 ML NEBU INH (14:48)
[2024-11-17] MEDS: ALBUTEROL RT 2.5 MG/0.5 ML NEBU 5 MG INH (14:48)
[2024-11-17 14:50] LABS: Calcium 13.5 mg/dL (8.3-10.6); Calcium (Corrected) 13.5 mg/dL (8.5-10.1); Sodium 166 mMol/L (136-145)
[2024-11-17] MEDS: cefTRIAXone/D5w 2gm 2 GM/50 ML BAG IV (15:00)
[2024-11-17] MEDS: PROPOFOL 1,000 MG IVPB 1,000 MG/100 ML VIAL 1.877 MG IV (15:30)
[2024-11-17] MEDS: PROPOFOL INJ 10 MG/ML VIAL 20 ML 80 MG IV (15:39)
[2024-11-17] MEDS: AZITHROMYCIN INJ 500 MG in SODIUM CHLORIDE 0.9% 250 ML 250 ML 250 MG IV (15:41)
[2024-11-17 15:54] LABS: Base Excess 18 (-3-3); HCO3 44 mEq/L (20-26); Inspired Oxygen, FIO2 50 %; O2 Saturation 92 % (91-98); PCO2 61 mmHg (32.0-48.0); PO2 61 mmHg (83-108); pH, Arterial 7.47 (7.35-7.45)
[2024-11-17 15:55] LABS: Allen Test Performed/OK; Puncture Site Left Radial
[2024-11-17] MEDS: WATER IV (16:17)
[2024-11-17] MEDS: DEXTROSE 5% IV (16:17)
[2024-11-17] MEDS: PAMIDRONATE IV (16:17)
--- NOTE | 2024-11-17 16:18 | ESPR_ITS ---
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 He is quadriplegic. Apparently he has been febrile at the custodial for the last 2 to 3 days. Today he appeared to have some increased work of breathing and therefore EMS was called. Upon arrival to the ER the patient was very clammy, diaphoretic and with increased work of breathing and decision was made to intubate him. At the custodial he had a fever to 102 and in the ED he has recorded temperature of 101. Information is limited and obtained from ER and records though unfortunately patient has not been to [facility] much in the recent past. PMH: Status post PEG tube, quadriplegia, chronic respiratory failure, coccidiomycosis meningitis, sacral ulcer, diabetes, hypertension, constipation, hydrocephalus, PATIENT SERVICES SPECIALIST shunt PSH: UTO ROS: UTO Critical Care Note Critical care time (min.): 65 Exam Vital Signs Temp Pulse Resp BP Pulse Ox O2 Del Method O2 Flow Rate 101.1 F H 109 H 22 H 152/91 H 94 L Mechanical Ventilation 15 11/17/24 14:06 11/17/24 14:55 11/17/24 14:55 11/17/24 14:20 11/17/24 14:55 11/17/24 14:06 11/17/24 13:25 FiO2 50 11/17/24 14:55 Narrative Exam General-chronically ill-appearing, thin and cachectic, malnourished in appearance, disheveled, unkempt HEENT-normocephalic, atraumatic, temporal muscle wasting noted, pupils equal and reactive, sclera injected, oral mucosa is dry, ET tube in place, neck with old trach site healed with a tiny 1 to 2 mm area which may have dehisced Chest-lungs clear to auscultation, no crackles or wheezes auscultated, heart rate regular and rhythmic, no bruits or murmurs auscultated times exam, no apparent pain on palpation of the chest wall Abdomen-soft, nontender, bowel sounds diminished but present, PEG on the left side with no significant erythema or discharge surrounding insertion site Extremities-muscle wasting with atrophy noted throughout, sacral decubitus noted with no purulence, pulses palpable, no apparent clubbing or mottling Vent AC VC Physical Exam Completion Physical Exam Complete?: Yes Objective - Corrections Corporal Labs 11/18/24 03:20 11/18/24 11:07 Labs: Laboratory Results - last 24 hr 11/17/24 11/17/24 14:05 15:48 WBC 8.2 RBC 4.57 Hgb 11.8 L Hct 39.4 L MCV 86 MCH 25.8 MCHC 29.9 L RDW Std Deviation 58.5 H Plt Count 354 Neut % (Auto) 48 Lymph % (Auto) 44 Boundary % (Auto) 5 Eos % (Auto) 3 Baso % (Auto) 0 Neut # (Auto) 3.9 Lymph # (Auto) 3.6 Boundary # (Auto) 0.4 Eos # (Auto) 0.2 Baso # (Auto) 0.0 Immature Gran # (Auto) 0.02 H Absolute Nucleated RBC 0.00 Immature Gran % 0 Nucleated RBC % 0 PT 11.7 INR 1.1 APTT 22.7 Puncture Site Right Radial Left Radial ABG pH 7.39 7.47 H ABG pCO2 75 H* 61 H D ABG pO2 166 H 61 L D ABG HCO3 45 H 44 H ABG O2 Saturation 100 H 92 ABG Base Excess 16 H 18 H FiO2 100 50 Sodium 166 H* Potassium 4.0 Chloride 113 H Carbon Dioxide > 40.0 H Anion Gap 13 BUN 34 H Creatinine 0.9 Estim Creat Clear Calc 82.0 eGFR > 60 BUN/Creatinine Ratio 38 H Glucose 137 H Calculated Osmolality 337 H Calcium 13.5 H* Corrected Calcium 13.5 H* Total Bilirubin < 0.2 L ALT 21 Alkaline Phosphatase 155 H Troponin I 0.037 B-Natriuretic Peptide < 20 Total Protein 8.1 Albumin 4.4 Globulin 3.7 H Albumin/Globulin Ratio 1.2 Assessment & Plan Additional Plan Additional Plan: In brief this is a 54-year-old male admitted to the ICU for acute on chronic hypoxic respiratory failure 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 Will adjust ventilator. Follow-up on chest x- ray and ABGs Pneumonia-this report on chest x-ray of the chest x-ray does not appear that that. Currently on antibiotics and will follow-up with cultures Renal HyperNa-Free water deficit calculated, will start on free water via PEG tube with sodium checks every 4 hours HyperCa-likely due to dehydration, will receive fluids Dehydration-will receive fluids GI Status post PEG tube-will resume tube feeds Endo Stable Heme Anemia- normocytic, no active bleed noted ID Pneumonia-on Zosyn and azithromycin, given 1 dose of vancomycin Decubitus ulcer- wound care eval Case discussed with the ER, discussed with the ICU team Labs, imaging and records reviewed Approximately 65 critical care minutes required evaluation, exam, review, imaging, discussion of formulation of plan of care for this critically ill patient with acute respiratory failure at high risk for further and ongoing decompensation Provider Notation Provider Notation: Although this document has been carefully reviewed, there may still be some phonetic and other typographical errors. These errors are purely grammatical due to imperfections in the software program and should not be construed in any way to compromise the substance of the patient's medical care during this visit. Thank you for the opportunity and privilege in assisting you with this patient's care and management.
--- NOTE | 2024-11-17 17:08 | XR_ITS ---
Examination: CT brain head without contrast. 2-D sagittal coronal reconstructions Date and time of exam:November 17, 2024 1823 hours Technique absence sepsis high fever, history of hydrocephalus post shunt tube placement CTDI: vol (mGy):49.8 DLP: (mGycm):997 Technique: Multiple CT axial sections of the brain have been obtained, 5 mm slice thickness. Contrast has not been administered. 2-D sagittal, coronal reconstructions have been obtained Low dose protocols were performed. One or more of the following dose reduction techniques were used; automated exposure control, adjustment of the mA and/or KV according to patient size, use of iterative reconstruction technique. Findings: Ventriculostomy shunt tube tip right lateral ventricle with no significant ventricular enlargement Small subacute chronic left subdural hygroma, 5 mm in thickness peripheral to the left frontal and parietal lobes No midline shift No acute hemorrhage I do not have prior CTs for comparison Old-appearing blowout fracture medial wall left orbit Moderate chronic ethmoid sinusitis prominent left frontal sinusitis mild sphenoid sinusitis IMPRESSION: No acute hemorrhage or mass effect Ventriculostomy shunt tube tip right lateral ventricle with no significant ventricular enlargement Small subacute chronic left subdural hygroma, 5 mm in thickness peripheral to the left frontal and parietal lobes Follow-up CT brain scan imaging is recommended, particularly if symptoms worsen, as clinically warranted
--- NOTE | 2024-11-17 17:33 | ESHP_ITS ---
Documentation for date of: 11/17/24 HPI History of Present Illness Chief complaint: Hypoxia, Diaphoresis History of present illness: HPI: Patient was intubated and mechanically ventilated upon my evaluation, history was taken from chart review and facility. Patient is a 54 year old male, resident of [facility] and previously [facility], with a past medical history significant for chronic respiratory failure on 3L O2 at baseline, quadriplegia, history of disseminated coccidiomycosis, primary hypertension, dcz-wanyjbq-mwdqnxwgt diabetes mellitus type 2, hyperlipidemia, hydrocephalus s/p DENTAL HYGIENE INSTRUCTOR shunt and PEG tube presenting with a chief complaint of hypoxia and diaphoresis. According to the nurse at [facility] earlier today patient became hypoxic in the 70s on 5L via NC and was subsequently started on 15L via NRB and the ambulance was called to transfer patient to the ED. According to the emergency notes, patient was saturating 82% on 15L via NRB and unresponsive, subsequently he was intubated and mechanically ventilated. Of note at patient's baseline his GCS is 12/15 [he says nonsensical things at times according to the facility]. From chart review he was first admitted to [facility] in September and discharged to [facility] on 11/14/2024. ED course: BP 150/91, pulse 123, RR 36, temp 101.1 F, SpO2 84% on NRB. Labs showed Hb 11.8, HCT 39.4, NA 166, OSM 337, CL 113, bicarb >40, corrected Ca 13.5, ALP 155. pH 7.47, [id number], PO261, bicarb 44, anion gap 13. Chest x-ray showed no obvious consolidation, pulmonary edema or pleural effusion. ET tube 5.8 cm above micki. In the ED patient received normal saline 1L IVF bolus, etomidate 20 Mg IV x 1, succinyl chloride 100 Mg IV x 1, albuterol 5 Mg IV x 1, ceftriaxone 2 g IV x 1, azithromycin 500 Mg IV x 1 on pamidronate 60 Mg IV x 1. Patient will be admitted to the ICU for management of acute on chronic respiratory failure with hypoxia and hypercarbia secondary to possible aspiration Review of Systems Review of Systems ROS Unobtainable: unobtainable due to mental status and due to endotracheal tube Past Medical History Past Medical History Comments PM COMMENT: Past medical history: Disseminated coccidiomycosis Hydrocephalus s/p DENTAL HYGIENE INSTRUCTOR shunt [id number] diabetes mellitus type 2 Primary pretension Hyperlipidemia S/p PEG tube Chronic respiratory failure on 3L O2 at baseline Quadriplegia Medication list: Fluconazole 200 Mg GT daily Past surgical history: Unknown Allergies: NKFDA Social history: Patient is a resident at [facility]. At baseline his GCS is 12/15 [E4, V4,M4] Family History: Unobtainable Exam Vital Signs Temp Pulse Resp BP Pulse Ox O2 Del Method O2 Flow Rate 101.1 F H 97 23 H 118/78 93 L Mechanical Ventilation 15 11/17/24 14:06 11/17/24 17:15 11/17/24 17:15 11/17/24 17:15 11/17/24 17:15 11/17/24 14:06 11/17/24 13:25 FiO2 50 11/17/24 14:55 Narrative Exam Constitutional Bitemporal wasting, cachectic. Sedated, intubated and mechanically ventilated. ACMV VT 375, RR22, FiO2 55% HEENT PERRL, pupils constricted, right clavicle has area of erythema and swelling medially, trachea midline, ETT tube in situ with no secretions. Carotid pulses palpated. Scar on giuglular fossa Respiratory Muscle wasting on chest wall mechanically ventilated breath sounds on anterior and posterior chest wall JVD not assessed Cardiovascular S1 and S2 audible, RRR. No murmurs carotid bruit. JVD not assessed Abdominal Soft and non tender to palpation in all quadrants. PEG tube noted, exit site clean. BS + Genitourinary No bladder tenderness, no flank pain. Normal to palpation. Bauman in situ Musculoskeletal Flaccid tone in all extremities. Neurological Triple flexion reflex present Skin Grade 2 sacral ulcer on left gluteus, 3 grade 2 ulcers on right gluteus Results: Labs 11/17/24 14:05 11/17/24 14:05 Labs: Short CBC 11/17/24 Range/Units 14:05 WBC 8.2 (3.8-10.6) Thou/mm3 Hgb 11.8 L (13.5-16.0) g/dL Hct 39.4 L (41.0-53.0) % Plt Count 354 (140-440) Thou/mm3 BMP 11/17/24 14:05 Sodium 166 H* Potassium 4.0 Chloride 113 H Carbon Dioxide > 40.0 H BUN 34 H Creatinine 0.9 Glucose 137 H Calcium 13.5 H* Cardiac Enzymes 11/17/24 Range/Units 14:05 Troponin I 0.037 (0.0-0.045) ng/mL Liver Function 11/17/24 Range/Units 14:05 Total Bilirubin < 0.2 L (0.3-1.2) mg/dL ALT 21 (10-49) U/L Alkaline Phosphatase 155 H (46-116) U/L Albumin 4.4 (3.5-5.0) gm/dL ABG Interpretation ABG results: 11/17/24 11/17/24 14:05 15:48 ABG pH 7.39 7.47 H ABG pCO2 75 H* 61 H D ABG pO2 166 H 61 L D ABG HCO3 45 H 44 H ABG O2 Saturation 100 H 92 ABG Base Excess 16 H 18 H Quality Measures Quality Measures sepsis Current suspected stage: sepsis Possible source: pulmonary and genitourinary Blood cultures ordered: yes Antibiotic ordered: Yes Medications Home Medications and Allergies Allergies Allergy/AdvReac Type Severity Reaction Status Date / Time Unable to Assess Allergy Verified 11/17/24 14:19 Visit Medications Enoxaparin Sodium (Enoxaparin Sod Inj 40 Mg/0.4 Ml Syringe) 40 mg SC QDAY MCKENZIE Stop: 12/01/24 17:14 Fluconazole (Fluconazole Susp 40 Mg/Ml Ml) 200 mg GT QDAY MCKENZIE Stop: 11/24/24 17:14 Propofol (Diprivan Ivpb) 1,000 mg in 100 mls @ 1.877 mls/hr IV .Q24H PRN; Protocol PRN Reason: PER PROTOCOL Stop: 12/17/24 13:53 Last Admin: 11/17/24 15:30 Dose: 5 mcg/kg/min, 1.877 mls/hr Pamidronate Disodium 60 mg/ (Dextrose) 1,006.6667 mls @ 250 mls/hr IV X1 ONE Stop: 11/17/24 19:46 Last Admin: 11/17/24 16:17 Dose: 250 mls/hr Ceftriaxone Sodium/Dextrose (Rocephin/D5w 1gm Iv Premix) 1 gm in 50 mls @ 100 mls/hr IV QDAY MCKENZIE Stop: 11/25/24 21:08 Azithromycin 500 mg/ Sodium (Chloride) 250 mls @ 250 mls/hr IV QDAY MCKENZIE Stop: 11/25/24 20:59 Pantoprazole Sodium (Pantoprazole Inj 40 Mg Vial) 40 mg IVP QDAY MCKENZIE Stop: 12/17/24 17:14 Sodium Chloride (Sodium Chloride Rt Nicolette 0.9% 3 Ml Nebu) 3 ml INH PRN PRN PRN Reason: SOLN Stop: 12/17/24 13:32 Last Admin: 11/17/24 14:48 Dose: 3 ml Discontinued Medications Albuterol (Albuterol Rt 2.5 Mg/0.5 Ml Nebu) 5 mg INH X1 ONE Stop: 11/17/24 13:34 Last Admin: 11/17/24 14:48 Dose: 5 mg Dexamethasone Sodium Phosphate (Dexamethasone Sod Phos Inj 10 Mg/Ml Vial) 10 mg PO X1 ONE Stop: 11/17/24 13:34 Last Admin: 11/17/24 15:25 Dose: Not Given Etomidate (Etomidate Inj 2 Mg/Ml Vial 10 Ml) 20 mg IVP X1 ONE Stop: 11/17/24 13:36 Last Admin: 11/17/24 13:43 Dose: 20 mg Sodium Chloride (Ns) 1,000 mls @ 999 mls/hr IV .Q1H1M ONE Stop: 11/17/24 14:33 Last Infusion: 11/17/24 15:48 Dose: Infused Azithromycin 500 mg/ Sodium (Chloride) 250 mls @ 250 mls/hr IV X1 ONE Stop: 11/17/24 14:36 Last Admin: 11/17/24 15:50 Dose: Not Given Ceftriaxone Sodium 2 gm/ (Sodium Chloride) 50 mls @ 100 mls/hr IV X1 ONE Stop: 11/17/24 14:59 Last Admin: 11/17/24 15:50 Dose: Not Given Azithromycin 500 mg/ Sodium (Chloride) 250 mls @ 250 mls/hr IV X1 ONE Stop: 11/17/24 15:59 Last Admin: 11/17/24 15:41 Dose: 250 mls/hr Ceftriaxone Sodium/Dextrose (Rocephin/D5w 2gm) 2 gm in 50 mls @ 100 mls/hr IV X1 ONE Stop: 11/17/24 15:14 Last Infusion: 11/17/24 15:47 Dose: Infused Pamidronate Disodium 60 mg/ (Sodium Chloride) 520 mls @ 130 mls/hr IV X1 ONE Stop: 11/17/24 19:29 Pamidronate Disodium (Pamidronate Inj 90 Mg/10 Ml Vial) 60 mg IV X1 ONE Stop: 11/17/24 15:24 Propofol (Propofol Inj 10 Mg/Ml Vial 20 Ml) 80 mg IV X1 ONE Stop: 11/17/24 13:54 Last Admin: 11/17/24 15:39 Dose: 80 mg Sodium Chloride (Sodium Chloride Rt 10% 15 Ml Nebu) 5 ml INH X1 ONE Stop: 11/17/24 13:55 Last Admin: 11/17/24 14:58 Dose: Not Given Succinylcholine Chloride (Succinylcholine Inj 20 Mg/Ml Vial 10 Ml) 100 mg IV X1 ONE Stop: 11/17/24 13:36 Last Admin: 11/17/24 13:44 Dose: 100 mg Assessment & Plan Plan Patient is a 54 year old male, resident of [facility] and previously [facility], with a past medical history significant for chronic respiratory failure on 3L O2 at baseline, quadriplegia, history of disseminated coccidiomycosis, primary hypertension, ful-dnfzxdn-puwslgsbc diabetes mellitus type 2, hyperlipidemia, hydrocephalus s/p DENTAL HYGIENE INSTRUCTOR shunt and PEG tube presenting with a chief complaint of hypoxia and diaphoresis. Patient will be admitted to the ICU for management of acute on chronic respiratory failure with hypoxia and hypercarbia secondary to possible aspiration NEURO Quadriplegia H/O Disseminated Coccidiomycosis Hydrocephalus s/p DENTAL HYGIENE INSTRUCTOR shunt Rx: CT brain NC ordered. Resumed fluconazole 200 Mg GT daily RRX: Follow-up on CT brain results CVS History of primary hypertension Rx: Antihypertensives on hold for now PULM Acute on chronic respiratory failure with hypoxia and hypercarbia secondary to underlying respiratory pathology for investigation Chronic respiratory acidosis with metabolic alkalosis DDx: Aspiration pneumonia, central apnea secondary to worsening hydrocephalus Dx: pH 7.47, [id number], PO261, bicarb 44. Chest x-ray showed ET tube 5.8 cm above micki Rx: Wean respiratory 16, advance ET tube 2 cm and repeat ABG 1 hour later. Daily CXR and ABGs, sputum culture RRX: Follow-up on ABG to possibly adjust vent settings further GI/Hep PEG tube in situ Rx: Resume tube feeds. Registered dietitian referral. RENAL Hyperosmolar hypernatremia Hyperchloremia Hypercalcemiua DDx: Most likely due to poor oral intake Dx: Na 166, Osm 337. CL 113, Ca 13.5 Rx: Na checks q4hrly RRX: Follow up on Na. Goal of correction no more than 8mmol per each 24 hour period HEME/ONC Normocytic Anemia DDx: Anemia of chronic disease, LAURA Dx: Hb 11.8 Rx: Monitor CBC ENDO NIDDM type 2 Rx: SSI q 6hrly HLD Rx: Medication on hold for now ID Disseminated Coccidiomycosis Possible Aspiration Pneumonia SIRS 3/4 DDx: Aspiration pneumonia, infected DENTAL HYGIENE INSTRUCTOR shunt, bacteremia, UTI Rx: Blood, urine and sputum cultures. Replace Bauman. Zosyn 4.5 g IV q 6 hrly and Azithromycin 500mg IV daily MSK/DERM Gluteal Ulcers Rx: Wound care referral ICU Health maintenance: Dispo: Admit to ICU for acute on chronic respiratory failure with hypoxia and hypercarbia Diet: TUbe feeds via GT DVT ppx: Enoxaparin 40mg SC daily GI ppx: Protonix 40mg qD Mechanical ventilattion: Yes, Mode: ACMV , VT 375cc, R 22, FiO2 55% Sedation: Yes, Propofol (RAAS - 3) IV lines: 2 pIV Central line: No Arterial line: No Bauman: Yes Code status: FULL CODE Plan of care discussed with Attending Dr. Prado and PGY 3 Dr. Bogdan Flores MD PGY 1 Disclaimer: This note was dictated by speech recognition. Minor errors in fire department battalion chief may be present due to voice recognition software.
[2024-11-17 18:08] LABS: Sodium 160 mMol/L (136-145)
[2024-11-17] MEDS: PANTOPRAZOLE INJ 40 MG VIAL IVP (18:13)
[2024-11-17] MEDS: ENOXAPARIN SOD INJ 40 MG/0.4 ML SYRINGE SC (18:14)
[2024-11-17] MEDS: FLUCONAZOLE SUSP 40 MG/ML ML 200 MG GT (19:05)
[2024-11-17 19:20] LABS: Base Excess 16 (-3-3); HCO3 43 mEq/L (20-26); O2 Saturation 95 % (91-98); PCO2 64 mmHg (32.0-48.0); PO2 73 mmHg (83-108); pH, Arterial 7.44 (7.35-7.45)
[2024-11-17 19:21] LABS: Allen Test Performed/OK; Inspired Oxygen, FIO2 70 %; Puncture Site Left Radial
[2024-11-17] MEDS: PIPER/TAZO INJ 4.5 GM in SODIUM CHLORIDE 0.9% (POP) 100 ML IV (21:39)
[2024-11-17 22:50] LABS: Bilirubin,Urine Negative (Negative); Blood,Urine 1+ (Negative); Clarity,Urine Clear (Clear/Hazy); Collection Type, Urine Catheter; Color,Urine Yellow (Lt Yel-Yel); Glucose, Urine Negative (Negative); Hyaline Casts,Urine < 1 /hpf (0-1); Ketones,Urine Negative (Negative); Leukocyte Esterase,Urine Positive (Negative); Nitrite,Urine Negative (Negative); PH,Urine 5.5 (5.0-7.0); Protein,Urine 1+ (Neg - Trace); RBC,Urine 28 /hpf (0-3); Specific Gravity,Urine 1.017 (1.001-1.035); Squamous Epithelial Cell,Urine < 1 /hpf (0-5); Urobilinogen,Urine Negative mg/dL (0.0-1.0); WBC,Urine 16 /hpf (0-5)
[2024-11-17] MEDS: PROPOFOL 1,000 MG IVPB 1,000 MG/100 ML VIAL 15.012 MG IV (23:00)
[2024-11-18] VITALS (105 sets, daily range): BP systolic 71–134; BP diastolic 45–78; PULSE 88–116; RESP 15–46; TEMP 36.2–37.3; O2SAT 94–99; BMI 18.6
[2024-11-18 00:30] LABS: Sodium 164 mMol/L (136-145)
[2024-11-18] MEDS: PIPER/TAZO INJ 4.5 GM in SODIUM CHLORIDE 0.9% (POP) 100 ML IV ×4 (00:39→17:23)
[2024-11-18 03:56] LABS: Basophils % (Auto) 0 % (0-2.5); Eosinophils # (Auto) 0.4 Thou/mm3 (0.0-0.5); Eosinophils % (Auto) 4 % (0-10); Hematocrit 35.7 % (41.0-53.0); Hemoglobin 10.8 g/dL (13.5-16.0); Immature Granulocytes % (Auto) 0 % (0-0); Immature Granulocytes Auto 0.02 Thou/mm3 (0.00-0.00); Lymphocytes % (Auto) 18 % (10-50); Mean Corpuscular HGB Conc 30.3 g/dl (31.0-37.0); Mean Corpuscular Hemoglobin 25.8 pg (25.0-35.0); Mean Corpuscular Volume 85 fL (80-100); Monocytes # (Auto) 0.7 Thou/mm3 (0.0-0.8); Monocytes % (Auto) 7 % (0-12); Neutrophils # (Auto) 7.8 Thou/mm3 (1.8-7.7); Neutrophils % (Auto) 71 % (37-80); Nucleated Red Blood Cell % 0 /100 WBC (0); Platelet Count 297 Thou/mm3 (140-440); RDW Standard Deviation 58.6 fL (35.1-43.9); Red Blood Count 4.18 Miln/mm3 (4.50-5.90)
[2024-11-18 04:22] LABS: Alanine Aminotransferase 26 U/L (10-49); Albumin, Serum 3.9 gm/dL (3.5-5.0); Albumin/Globulin Ratio 1.2 (1.2-2.2); Alkaline Phosphatase 138 U/L (46-116); Anion Gap 12 (7-16); BUN/Creatinine Ratio 39 Ratio (12-20); Bilirubin,Total 0.2 mg/dL (0.3-1.2); Blood Urea Nitrogen 35 mg/dL (9-23); Chloride 111 mMol/L (98-107); Creatinine (Component) 0.9 mg/dL (0.6-1.3); Globulin 3.2 gm/dL (2.3-3.5); Glucose 152 mg/dL (74-106); Osmolality,Calculated 331 (275-295); Phosphorous 2.9 mg/dL (2.4-5.1); Potassium 2.8 mMol/L (3.4-5.1); Total Protein 7.1 gm/dL (5.7-8.2); eGFR > 60 See Note
[2024-11-18 04:28] LABS: Calcium 13.4 mg/dL (8.3-10.6); Calcium (Corrected) 13.5 mg/dL (8.5-10.1); Sodium 162 mMol/L (136-145)
--- NOTE | 2024-11-18 05:00 | XR_ITS ---
Examination: AP chest single view Technique one AP portable semiupright chest single view Date and time: November 18, 2024 0528 hours INDICATIONS: Hypoxic respiratory failure postintubation, history pneumonia left lung FINDINGS: Significant left lung pneumonia Endotracheal tube tip 5 cm above micki Right ventriculoperitoneal shunt tube Moderate vascular congestion IMPRESSION: Significant left lung pneumonia
[2024-11-18 05:05] LABS: Base Excess 16 (-3-3); HCO3 42 mEq/L (20-26); Inspired Oxygen, FIO2 55 %; O2 Saturation 98 % (91-98); PCO2 61 mmHg (32.0-48.0); PO2 100 mmHg (83-108); pH, Arterial 7.45 (7.35-7.45)
[2024-11-18 05:22] LABS: Allen Test Performed/OK; Puncture Site Left Radial
[2024-11-18 07:32] LABS: Sodium 158 mMol/L (136-145)
[2024-11-18] MEDS: PANTOPRAZOLE INJ 40 MG VIAL IVP (08:21)
[2024-11-18] MEDS: PROPOFOL 1,000 MG IVPB 1,000 MG/100 ML VIAL 7.506 MG IV (08:22)
[2024-11-18] MEDS: POTASSIUM CHLORIDE 10% 20 MEQ/15 ML UDC 40 MEQ GT ×2 (08:23→11:15)
[2024-11-18] MEDS: ENOXAPARIN SOD INJ 40 MG/0.4 ML SYRINGE SC (08:23)
[2024-11-18] MEDS: FLUCONAZOLE SUSP 40 MG/ML ML 200 MG GT (08:24)
--- NOTE | 2024-11-18 08:25 | ESPR_ITS ---
Documentation for date of: 11/18/24 Subjective Subjective Interval history: Patient was intubated and mechanically ventilated upon my evaluation, history was taken from chart review and facility. Patient is a 54 year old male, resident of [facility] and previously [facility], with a past medical history significant for chronic respiratory failure on 3L O2 at baseline, quadriplegia, history of disseminated coccidiomycosis, primary hypertension, dcc-gymitlv-yjodueafb diabetes mellitus type 2, hyperlipidemia, hydrocephalus s/p PAPER CONTROL CLERK shunt and PEG tube presenting with a chief complaint of hypoxia and diaphoresis. According to the nurse at [facility] earlier today patient became hypoxic in the 70s on 5L via NC and was subsequently started on 15L via NRB and the ambulance was called to transfer patient to the ED. According to the emergency notes, patient was saturating 82% on 15L via NRB and unresponsive, subsequently he was intubated and mechanically ventilated. Of note at patient's baseline his GCS is 12/15 [he says nonsensical things at times according to the facility]. From chart review he was first admitted to [facility] in September and discharged to [facility] on 11/14/2024. ED course: BP 150/91, pulse 123, RR 36, temp 101.1 F, SpO2 84% on NRB. Labs showed Hb 11.8, HCT 39.4, NA 166, OSM 337, CL 113, bicarb >40, corrected Ca 13.5, ALP 155. pH 7.47, SLS425, PO261, bicarb 44, anion gap 13. Chest x-ray showed no obvious consolidation, pulmonary edema or pleural effusion. ET tube 5.8 cm above micki. In the ED patient received normal saline 1L IVF bolus, etomidate 20 Mg IV x 1, succinyl chloride 100 Mg IV x 1, albuterol 5 Mg IV x 1, ceftriaxone 2 g IV x 1, azithromycin 500 Mg IV x 1 on pamidronate 60 Mg IV x 1. Patient will be admitted to the ICU for management of acute on chronic respiratory failure with hypoxia and hypercarbia secondary to possible aspiration 11/18/2024: Overnight patient had 1 bowel movement, free water flushes 150cc/H ,tube feeds at 65 cc per. Urine output 50 cc / 24 hours and 100 cc yellow mucus secretions suctioned . Vent: ACNP, VT 395, RR 16, PEEP 5, FiO2 55%. Patient on propofol infusion 25 mcg/H, RASS -2. Hb decreased to 10.8 from 11.8, WBC increased to 11 from 8.2, potassium decreased to 2.8, NA 162, bicarb 39, corrected calcium 13.5. On ABG pH 7.45, pCO2 61, PaO2 100, bicarb 42. Urinalysis LE+ , WBC 16. sputum Gram stain GPC 4+ prelim. CXR this a.m. showed abundant stool in the bowel. CT brain n.c. Showed shunt right lateral ventricle, subacute chronic left subdural hygroma. Old blowout fracture left orbit. Will give KCl 80 mEq GT x 1, increase free water flushes to 250 cc/HR, vancomycin 1 g IV x 1. Wean FiO2 45% and switch to spontaneous mode. Sedation vacation. Exam Vital Signs Temp Pulse Resp BP Pulse Ox O2 Del Method O2 Flow Rate 99.2 F 104 H 29 H 96/54 L 96 Mechanical Ventilation 15 11/18/24 08:00 11/18/24 08:00 11/17/24 22:45 11/18/24 08:00 11/18/24 08:00 11/18/24 08:00 11/17/24 19:36 FiO2 55 11/18/24 08:00 Narrative Exam Constitutional Bitemporal wasting, cachectic. Sedated, intubated and mechanically ventilated. Spontaneous, PEEP 10, FiO2 45% HEENT PERRL, pupils constricted, right clavicle has area of erythema and swelling medially, trachea midline, ETT tube in situ yellow mucus secretions.Carotid pulses palpated. Scar on giuglular fossa, 1 mm area of dehiscence Respiratory Muscle wasting on chest wall mechanically ventilated breath sounds on anterior and posterior chest wall JVD not assessed Cardiovascular S1 and S2 audible, RRR. No murmurs carotid bruit. JVD not assessed Abdominal Soft and non tender to palpation in all quadrants. PEG tube noted, exit site clean. BS + Genitourinary No bladder tenderness, no flank pain. Normal to palpation. Bauman in situ Musculoskeletal Flaccid tone in all extremities. Fingers swollen on both hands, overgrown fingernails Neurological Triple flexion reflex present. GCS E3, V1 T, M6 Skin Grade 2 sacral ulcer on left gluteus, 3 grade 2 ulcers on right gluteus. Covered with bandage, clean and dry Objective Labs 11/18/24 03:20 11/18/24 06:50 Labs: Laboratory Results - last 24 hr 11/17/24 11/17/24 11/17/24 14:05 15:48 17:06 WBC 8.2 RBC 4.57 Hgb 11.8 L Hct 39.4 L MCV 86 MCH 25.8 MCHC 29.9 L RDW Std Deviation 58.5 H Plt Count 354 Neut % (Auto) 48 Lymph % (Auto) 44 Andrew % (Auto) 5 Eos % (Auto) 3 Baso % (Auto) 0 Neut # (Auto) 3.9 Lymph # (Auto) 3.6 Andrew # (Auto) 0.4 Eos # (Auto) 0.2 Baso # (Auto) 0.0 Immature Gran # (Auto) 0.02 H Absolute Nucleated RBC 0.00 Immature Gran % 0 Nucleated RBC % 0 PT 11.7 INR 1.1 APTT 22.7 Puncture Site Right Radial Left Radial ABG pH 7.39 7.47 H ABG pCO2 75 H* 61 H D ABG pO2 166 H 61 L D ABG HCO3 45 H 44 H ABG O2 Saturation 100 H 92 ABG Base Excess 16 H 18 H FiO2 100 50 Sodium 166 H* Potassium 4.0 Chloride 113 H Carbon Dioxide > 40.0 H Anion Gap 13 BUN 34 H Creatinine 0.9 Estim Creat Clear Calc 82.0 eGFR > 60 BUN/Creatinine Ratio 38 H Glucose 137 H Calculated Osmolality 337 H Calcium 13.5 H* Corrected Calcium 13.5 H* Phosphorus Magnesium Total Bilirubin < 0.2 L ALT 21 Alkaline Phosphatase 155 H Troponin I 0.037 B-Natriuretic Peptide < 20 Total Protein 8.1 Albumin 4.4 Globulin 3.7 H Albumin/Globulin Ratio 1.2 Ur Collection Type Catheter Urine Color Yellow Urine Clarity Clear Urine pH 5.5 Ur Specific [place] 1.017 Urine Protein 1+ A Urine Glucose (UA) Negative Urine Ketones Negative Urine Blood 1+ A Urine Nitrite Negative Urine Bilirubin Negative Urine Urobilinogen (Auto) Negative Ur Leukocyte Esterase Positive Urine RBC 28 H Urine WBC 16 H Ur Squamous Epith Cells < 1 Urine Bacteria None Hyaline Casts < 1 11/17/24 11/17/24 11/17/24 17:48 19:12 23:40 WBC RBC Hgb Hct MCV MCH MCHC RDW Std Deviation Plt Count Neut % (Auto) Lymph % (Auto) Andrew % (Auto) Eos % (Auto) Baso % (Auto) Neut # (Auto) Lymph # (Auto) [place] # (Auto) Eos # (Auto) Baso # (Auto) Immature Gran # (Auto) Absolute Nucleated RBC Immature Gran % Nucleated RBC % PT INR APTT Puncture Site Left Radial ABG pH 7.44 ABG pCO2 64 H ABG pO2 73 L ABG HCO3 43 H ABG O2 Saturation 95 ABG Base Excess 16 H FiO2 70 Sodium 160 H 164 H* Potassium Chloride Carbon Dioxide Anion Gap BUN Creatinine Estim Creat Clear Calc eGFR BUN/Creatinine Ratio Glucose Calculated Osmolality Calcium Corrected Calcium Phosphorus Magnesium Total Bilirubin ALT Alkaline Phosphatase Troponin I B-Natriuretic Peptide Total Protein Albumin Globulin Albumin/Globulin Ratio Ur Collection Type Urine Color Urine Clarity Urine pH Ur Specific [place] Urine Protein Urine Glucose (UA) Urine Ketones Urine Blood Urine Nitrite Urine Bilirubin Urine Urobilinogen (Auto) Ur Leukocyte Esterase Urine RBC Urine WBC Ur Squamous Epith Cells Urine Bacteria Hyaline Casts 11/18/24 11/18/24 11/18/24 03:20 04:57 06:50 WBC 11.0 H RBC 4.18 L Hgb 10.8 L Hct 35.7 L MCV 85 MCH 25.8 MCHC 30.3 L RDW Std Deviation 58.6 H Plt Count 297 D Neut % (Auto) 71 Lymph % (Auto) 18 Andrew % (Auto) 7 Eos % (Auto) 4 Baso % (Auto) 0 Neut # (Auto) 7.8 H Lymph # (Auto) 2.0 Andrew # (Auto) 0.7 Eos # (Auto) 0.4 Baso # (Auto) 0.0 Immature Gran # (Auto) 0.02 H Absolute Nucleated RBC 0.00 Immature Gran % 0 Nucleated RBC % 0 PT INR APTT Puncture Site Left Radial ABG pH 7.45 ABG pCO2 61 H ABG pO2 100 D ABG HCO3 42 H ABG O2 Saturation 98 ABG Base Excess 16 H FiO2 55 Sodium 162 H* 158 H Potassium 2.8 L D Chloride 111 H Carbon Dioxide 39.0 H Anion Gap 12 BUN 35 H Creatinine 0.9 Estim Creat Clear Calc 82.0 eGFR > 60 BUN/Creatinine Ratio 39 H Glucose 152 H Calculated Osmolality 331 H Calcium 13.4 H* Corrected Calcium 13.5 H* Phosphorus 2.9 Magnesium 2.0 Total Bilirubin 0.2 L ALT 26 Alkaline Phosphatase 138 H Troponin I B-Natriuretic Peptide Total Protein 7.1 Albumin 3.9 D Globulin 3.2 Albumin/Globulin Ratio 1.2 Ur Collection Type Urine Color Urine Clarity Urine pH Ur Specific [place] Urine Protein Urine Glucose (UA) Urine Ketones Urine Blood Urine Nitrite Urine Bilirubin Urine Urobilinogen (Auto) Ur Leukocyte Esterase Urine RBC Urine WBC Ur Squamous Epith Cells Urine Bacteria Hyaline Casts ABG Interpretation ABG results: 11/17/24 11/17/24 11/17/24 14:05 15:48 19:12 ABG pH 7.39 7.47 H 7.44 ABG pCO2 75 H* 61 H D 64 H ABG pO2 166 H 61 L D 73 L ABG HCO3 45 H 44 H 43 H ABG O2 Saturation 100 H 92 95 ABG Base Excess 16 H 18 H 16 H 11/18/24 04:57 ABG pH 7.45 ABG pCO2 61 H ABG pO2 100 D ABG HCO3 42 H ABG O2 Saturation 98 ABG Base Excess 16 H Quality Measures Quality Measures sepsis Current suspected stage: sepsis Possible source: pulmonary and genitourinary Blood cultures ordered: yes Antibiotic ordered: Yes Assessment & Plan Assessment Current Active Medications: Generic Name Dose Route Start Last Admin Trade Name Freq PRN Reason Stop Dose Admin Acetaminophen 650 mg 11/18/24 07:34 Acetaminophen Nicolette 325 Mg/10 Ml Udc GT 12/18/24 07:33 Q4HR PRN Pain Or Fever > 100.3 Dextrose 50 ml 11/17/24 18:25 Dextrose 50%-Water Inj 50 Ml Syringe IV 12/17/24 18:24 Q15MIN PRN BG <50 OR BG <70 & pt unresponsive Enoxaparin Sodium 40 mg 11/17/24 17:15 11/17/24 18:14 Enoxaparin Sod Inj 40 Mg/0.4 Ml Syringe SC 12/01/24 17:14 40 mg QDAY MCKENZIE Administration Fluconazole 200 mg 11/17/24 17:15 11/17/24 19:05 Fluconazole Susp 40 Mg/Ml Ml GT 11/24/24 17:14 200 mg QDAY MCKENZIE Administration Glucagon 1 mg 11/17/24 18:25 Glucagon Inj 1 Mg Vial IM Q15MIN PRN BG <70, and no IV access Azithromycin 500 mg/ Sodium 250 mls @ 250 mls/hr 11/18/24 21:00 Chloride IV 11/19/24 20:59 QDAY MCKENZIE Piperacillin Sod/Tazobactam 100 mls @ 200 mls/hr 11/17/24 18:24 11/18/24 05:51 Sod 4.5 gm/ Sodium Chloride IV 11/24/24 18:23 200 mls/hr Q6HR MCKENZIE Administration Propofol 1,000 mg in 100 mls @ 1.877 mls/hr 11/17/24 19:12 11/18/24 08:00 Diprivan Ivpb IV 12/17/24 13:53 Infused .Q24H PRN Titration PER PROTOCOL Protocol 5 MCG/KG/MIN Insulin Human Lispro 0 unit 11/17/24 18:30 11/18/24 05:47 Insulin Lispro (Admelog) 1 Unit/0.01 Ml Unit SC 12/17/24 18:29 Not Given Q6HR MCKENZIE Protocol Pantoprazole Sodium 40 mg 11/17/24 17:15 11/17/24 18:13 Pantoprazole Inj 40 Mg Vial IVP 12/17/24 17:14 40 mg QDAY MCKENZIE Administration Potassium Chloride 40 meq 11/18/24 12:00 Potassium Chloride 10% 20 Meq/15 Ml Udc GT 11/18/24 12:01 X1 ONE Sodium Chloride 3 ml 11/17/24 13:33 11/17/24 14:48 Sodium Chloride Rt Nicolette 0.9% 3 Ml Nebu INH 12/17/24 13:32 3 ml PRN PRN Administration SOLN Plan Patient is a 54 year old male, resident of [facility] and previously [facility], with a past medical history significant for chronic respiratory failure on 3L O2 at baseline, quadriplegia, history of disseminated coccidiomycosis, primary hypertension, ngb-caqpomz-uvdmnlnni diabetes mellitus type 2, hyperlipidemia, hydrocephalus s/p PAPER CONTROL CLERK shunt and PEG tube presenting with a chief complaint of hypoxia and diaphoresis. Patient will be admitted to the ICU for management of acute on chronic respiratory failure with hypoxia and hypercarbia secondary to possible aspiration NEURO Quadriplegia Hydrocephalus s/p PAPER CONTROL CLERK shunt Chronic subdural hygroma Rx: CT brain n.c. Showed shunt right lateral ventricle, subacute chronic left subdural hygroma. Old blowout fracture left orbit. Chemical Sedation Rx: Sedation Vacation CVS History of primary hypertension Rx: Antihypertensives on hold for now due to normotension PULM Acute on chronic respiratory failure with hypoxia and hypercarbia secondary to underlying respiratory pathology for investigation Chronic respiratory acidosis DDx: Aspiration pneumonia, central apnea secondary to worsening hydrocephalus Dx: pH 7.45, pCO2 61, PaO2 100, bicarb 42. Chest x-ray showed ET tube 5 cm above micki Rx: Wean FiO2 45% and switch to spontaneous mode. Sedation vacation. RRx: Monitor saturations to possibly wean off the ventilator GI/Hep PEG tube in situ Rx: Tube feeds as per video systems engineer. 65cc/hr for 18 hours Chronic Constipation Dx: CXR this a.m. showed abundant stool in the bowel. Rx: Lactulose 10g GT TID RENAL Hyperosmolar hypernatremia Hypercalcemia DDx: Most likely due to poor oral intake and dehydration Dx: Na 158, Osm 331. Corrected Ca 13.5. Free water deficit 250 cc/hr Rx: Na checks q4hrly RRX: Follow up on Na. Goal of correction 12mmol per hour. Most likely chronic hypernatremia and low risks associated with fast rate of correction HEME/ONC Normocytic Anemia DDx: Anemia of chronic disease, LAURA Dx: Hb 11.8 ---> 10.8 Rx: Monitor CBC, monitor for signs of active bleeding ENDO NIDDM type 2 Rx: SSI q 6hrly HLD Rx: Medication on hold for now ID Disseminated Coccidiomycosis Possible Aspiration Pneumonia Sepsis secondary to UTI DDx: Aspiration pneumonia, infected PAPER CONTROL CLERK shunt, bacteremia, UTI Rx: sputum Gram stain GPC 4+ prelim. CXR this a.m. showed abundant stool in the bowel. Zosyn 4.5 g IV q 6 hrly and Azithromycin 500mg IV daily. Vancomycin 1G IV x 1 Sepsis due to [UTI] with acute sepsis-related organ dysfunction as evidence by [Acute on chronic respiratory failure]. UTI Dx: Urinalysis LE+ , WBC 16. Rx: Pening urine Culture MSK/DERM Gluteal Ulcers Rx: Wound care referral. wound care as per wound care nurse ICU Health maintenance: Dispo: Continue to wean off ventillator Diet: TUbe feeds via GT. 65 cc/hr for 18 hours. 250cc/hr free water flushes DVT ppx: Enoxaparin 40mg SC daily GI ppx: Protonix 40mg qD Mechanical ventilattion: Yes, Mode: SP ,10/45% Sedation: None IV lines: 3 pIV Central line: No Arterial line: No Bauman: Yes [replaced 11/17/24 Code status: FULL CODE, Hospice Plan of care discussed with Attending Dr. Prado and PGY 3 Dr. Bogdan Flores MD PGY 1 Disclaimer: This note was dictated by speech recognition. Minor errors in sports recruiter may be present due to voice recognition software.
[2024-11-18] MEDS: LACTULOSE SYRUP 20 GM/30 ML UDC 10 GM GT ×3 (11:14→21:04)
[2024-11-18] MEDS: VANCOMYCIN/NS 1 GM IVPB 200 ML IV (11:15)
--- NOTE | 2024-11-18 11:34 | PC.DIETICIAN ---
Nutrition prescription 1. Jevity 1.5 at 55 ml/hr x 24 hrs via PEG tube by pump (goal). If no IV fluids, water flushes of 250 ml/hr (per MD). 2. ProStat 30ml BID via PEG tube (mix with water).
[2024-11-18 11:41] LABS: Sodium 152 mMol/L (136-145)
--- NOTE | 2024-11-18 13:40 | PD.INTPROG ---
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 He is quadriplegic. Apparently he has been febrile at the shelter for the last 2 to 3 days. Today he appeared to have some increased work of breathing and therefore EMS was called. Upon arrival to the ER the patient was very clammy, diaphoretic and with increased work of breathing and decision was made to intubate him. At the shelter he had a fever to 102 and in the ED he has recorded temperature of 101. Information is limited and obtained from ER and records though unfortunately patient has not been to [facility] much in the recent past. 11/18-no acute overnight events, patient remains on free water via the PEG tube, good urinary output, afebrile Critical Care Note Critical care time (min.): 38 Exam Vital Signs Temp Pulse Resp BP Pulse Ox O2 Del Method O2 Flow Rate 98.9 F 109 H 29 H 104/57 L 98 Mechanical Ventilation 15 11/18/24 12:00 11/18/24 13:15 11/17/24 22:45 11/18/24 13:15 11/18/24 13:15 11/18/24 12:00 11/17/24 19:36 FiO2 55 11/18/24 12:00 Narrative Exam General-chronically ill-appearing, cachectic, malnourished, thin and frail, awake and appears to be able to follow commands with his facial movements HEENT-normocephalic, atraumatic, sclera anicteric, sclera injected, pupils equal and reactive, temporal muscle wasting noted, oropharynx is hydrated, ET tube in place, no significant secretions, prior neck lesion mentioned still noted Chest-lungs clear auscultation bilaterally, heart regular rhythmic, no bruits or murmurs auscultated times exam, no lesions on chest wall, no increased work of breathing Abdomen-soft, nontender, bowel sounds present though diminished, PEG tube in place, no rebound, no guarding Extremities-pulses palpable, no clubbing, no mottling, flaccid paralysis Vent-AC/VC Physical Exam Completion Physical Exam Complete?: Yes Objective - Usability Specialist Labs 11/18/24 03:20 11/18/24 11:07 Labs: Laboratory Results - last 24 hr 11/17/24 11/17/24 11/17/24 14:05 15:48 17:06 WBC 8.2 RBC 4.57 Hgb 11.8 L Hct 39.4 L MCV 86 MCH 25.8 MCHC 29.9 L RDW Std Deviation 58.5 H Plt Count 354 Neut % (Auto) 48 Lymph % (Auto) 44 [place] % (Auto) 5 Eos % (Auto) 3 Baso % (Auto) 0 Neut # (Auto) 3.9 Lymph # (Auto) 3.6 [place] # (Auto) 0.4 Eos # (Auto) 0.2 Baso # (Auto) 0.0 Immature Gran # (Auto) 0.02 H Absolute Nucleated RBC 0.00 Immature Gran % 0 Nucleated RBC % 0 PT 11.7 INR 1.1 APTT 22.7 Puncture Site Right Radial Left Radial ABG pH 7.39 7.47 H ABG pCO2 75 H* 61 H D ABG pO2 166 H 61 L D ABG HCO3 45 H 44 H ABG O2 Saturation 100 H 92 ABG Base Excess 16 H 18 H FiO2 100 50 Sodium 166 H* Potassium 4.0 Chloride 113 H Carbon Dioxide > 40.0 H Anion Gap 13 BUN 34 H Creatinine 0.9 Estim Creat Clear Calc 82.0 eGFR > 60 BUN/Creatinine Ratio 38 H Glucose 137 H Calculated Osmolality 337 H Calcium 13.5 H* Corrected Calcium 13.5 H* Phosphorus Magnesium Total Bilirubin < 0.2 L ALT 21 Alkaline Phosphatase 155 H Troponin I 0.037 B-Natriuretic Peptide < 20 Total Protein 8.1 Albumin 4.4 Globulin 3.7 H Albumin/Globulin Ratio 1.2 Ur Collection Type Catheter Urine Color Yellow Urine Clarity Clear Urine pH 5.5 Ur Specific [place] 1.017 Urine Protein 1+ A Urine Glucose (UA) Negative Urine Ketones Negative Urine Blood 1+ A Urine Nitrite Negative Urine Bilirubin Negative Urine Urobilinogen (Auto) Negative Ur Leukocyte Esterase Positive Urine RBC 28 H Urine WBC 16 H Ur Squamous Epith Cells < 1 Urine Bacteria None Hyaline Casts < 1 11/17/24 11/17/24 11/17/24 17:48 19:12 23:40 WBC RBC Hgb Hct MCV MCH MCHC RDW Std Deviation Plt Count Neut % (Auto) Lymph % (Auto) [place] % (Auto) Eos % (Auto) Baso % (Auto) Neut # (Auto) Lymph # (Auto) [place] # (Auto) Eos # (Auto) Baso # (Auto) Immature Gran # (Auto) Absolute Nucleated RBC Immature Gran % Nucleated RBC % PT INR APTT Puncture Site Left Radial ABG pH 7.44 ABG pCO2 64 H ABG pO2 73 L ABG HCO3 43 H ABG O2 Saturation 95 ABG Base Excess 16 H FiO2 70 Sodium 160 H 164 H* Potassium Chloride Carbon Dioxide Anion Gap BUN Creatinine Estim Creat Clear Calc eGFR BUN/Creatinine Ratio Glucose Calculated Osmolality Calcium Corrected Calcium Phosphorus Magnesium Total Bilirubin ALT Alkaline Phosphatase Troponin I B-Natriuretic Peptide Total Protein Albumin Globulin Albumin/Globulin Ratio Ur Collection Type Urine Color Urine Clarity Urine pH Ur Specific [place] Urine Protein Urine Glucose (UA) Urine Ketones Urine Blood Urine Nitrite Urine Bilirubin Urine Urobilinogen (Auto) Ur Leukocyte Esterase Urine RBC Urine WBC Ur Squamous Epith Cells Urine Bacteria Hyaline Casts 11/18/24 11/18/24 11/18/24 03:20 04:57 06:50 WBC 11.0 H RBC 4.18 L Hgb 10.8 L Hct 35.7 L MCV 85 MCH 25.8 MCHC 30.3 L RDW Std Deviation 58.6 H Plt Count 297 D Neut % (Auto) 71 Lymph % (Auto) 18 [place] % (Auto) 7 Eos % (Auto) 4 Baso % (Auto) 0 Neut # (Auto) 7.8 H Lymph # (Auto) 2.0 [place] # (Auto) 0.7 Eos # (Auto) 0.4 Baso # (Auto) 0.0 Immature Gran # (Auto) 0.02 H Absolute Nucleated RBC 0.00 Immature Gran % 0 Nucleated RBC % 0 PT INR APTT Puncture Site Left Radial ABG pH 7.45 ABG pCO2 61 H ABG pO2 100 D ABG HCO3 42 H ABG O2 Saturation 98 ABG Base Excess 16 H FiO2 55 Sodium 162 H* 158 H Potassium 2.8 L D Chloride 111 H Carbon Dioxide 39.0 H Anion Gap 12 BUN 35 H Creatinine 0.9 Estim Creat Clear Calc 82.0 eGFR > 60 BUN/Creatinine Ratio 39 H Glucose 152 H Calculated Osmolality 331 H Calcium 13.4 H* Corrected Calcium 13.5 H* Phosphorus 2.9 Magnesium 2.0 Total Bilirubin 0.2 L ALT 26 Alkaline Phosphatase 138 H Troponin I B-Natriuretic Peptide Total Protein 7.1 Albumin 3.9 D Globulin 3.2 Albumin/Globulin Ratio 1.2 Ur Collection Type Urine Color Urine Clarity Urine pH Ur Specific [place] Urine Protein Urine Glucose (UA) Urine Ketones Urine Blood Urine Nitrite Urine Bilirubin Urine Urobilinogen (Auto) Ur Leukocyte Esterase Urine RBC Urine WBC Ur Squamous Epith Cells Urine Bacteria Hyaline Casts 11/18/24 11:07 WBC RBC Hgb Hct MCV MCH MCHC RDW Std Deviation Plt Count Neut % (Auto) Lymph % (Auto) [place] % (Auto) Eos % (Auto) Baso % (Auto) Neut # (Auto) Lymph # (Auto) [place] # (Auto) Eos # (Auto) Baso # (Auto) Immature Gran # (Auto) Absolute Nucleated RBC Immature Gran % Nucleated RBC % PT INR APTT Puncture Site ABG pH ABG pCO2 ABG pO2 ABG HCO3 ABG O2 Saturation ABG Base Excess FiO2 Sodium 152 H Potassium Chloride Carbon Dioxide Anion Gap BUN Creatinine Estim Creat Clear Calc eGFR BUN/Creatinine Ratio Glucose Calculated Osmolality Calcium Corrected Calcium Phosphorus Magnesium Total Bilirubin ALT Alkaline Phosphatase Troponin I B-Natriuretic Peptide Total Protein Albumin Globulin Albumin/Globulin Ratio Ur Collection Type Urine Color Urine Clarity Urine pH Ur Specific [place] Urine Protein Urine Glucose (UA) Urine Ketones Urine Blood Urine Nitrite Urine Bilirubin Urine Urobilinogen (Auto) Ur Leukocyte Esterase Urine RBC Urine WBC Ur Squamous Epith Cells Urine Bacteria Hyaline Casts Assessment & Plan Additional Plan Additional Plan: In brief this is a 54-year-old male admitted to the ICU for acute on chronic hypoxic respiratory failure a/p INTERVENTIONAL RADIOLOGIST h/o quadraplegia Hydrocephalus s/p STAFFING ADMINISTRATOR shunt- HCT -Head CT obtained on arrival and appears to be within normal limits with a functioning STAFFING ADMINISTRATOR shunt cocci meningitis - pt on fluconazole - This is continued from home CV stable Resp Acute/chronic resp failure- ABG shows some metabolic alkalosis superimposed on a chronic respiratory acidosis. Will adjust ventilator. Follow-up on chest x-ray and ABGs -Repeat ABG shows significant improvement -Have been able to wean down the FiO2 45% -Breathing over the vent and trialed on PSV today Pneumonia-this report on chest x-ray of the chest x-ray does not appear that that. Currently on antibiotics and will follow-up with cultures - Culture still pending Renal HyperNa-Free water deficit calculated, will start on free water via PEG tube with sodium checks every 4 hours -Improvement in sodium -Free water increased via the PEG tube HyperCa-likely due to dehydration, will receive fluids -Remains elevated Dehydration-will receive fluids - Improving GI Status post PEG tube-will resume tube feeds Endo Stable Heme Anemia- normocytic, no active bleed noted ID Pneumonia-on Zosyn and azithromycin, given 1 dose of vancomycin -Stable Decubitus ulcer- wound care eval discussed with the ICU team Patient had been on hospice previously it is unclear his current CODE STATUS also unclear whether he is on hospice or not. Will obtain a social work consult for further evaluation Labs, imaging and records reviewed Approximately 38 critical care minutes required evaluation, exam, review, imaging, discussion of formulation of plan of care for this critically ill patient with acute respiratory failure at high risk for further and ongoing decompensation Provider Notation Provider Notation: Although this document has been carefully reviewed, there may still be some phonetic and other typographical errors. These errors are purely grammatical due to imperfections in the software program and should not be construed in any way to compromise the substance of the patient's medical care during this visit. Thank you for the opportunity and privilege in assisting you with this patient's care and management.
[2024-11-18 14:12] LABS: Procalcitonin 3.12 ng/ml (0.0-0.49)
--- NOTE | 2024-11-18 14:33 | EKG_ITS ---
[facility] Test Date: 2024-11-18 Pat Name: MAGALY MAGDALENO [facility] Gender[facility] Senior Accountant Analyst: KIMBERLY : 1970 Requested By: Maxwell Flores Order Number: [id number] Reading MD: Maxwell Flores Measurements Intervals [place] Rate: 113 P: 57 MI: 117 QRS: 36 QRSD: 89 T: 68 QT: 280 QTc: 384 Interpretive Statements SINUS TACHYCARDIA WITH SHORT MI INTERVAL LEFT VENTRICULAR HYPERTROPHY AND ST-T CHANGE No previous ECG available for comparison /store/S0/[id number]
--- NOTE | 2024-11-18 14:45 | PC.SS ---
EXPERIMENTAL PLASTICS FABRICATOR conducted phone contact with the patient?s father, Seamus Rod . to conduct initial assessment and to discuss discharge planning.? Patient admitted to ICU, currently intubated.? Patient is a resident of [facility].? Patient transitioned to SNF from [facility] approximately 1 month ago.? Patient is non-ambulatory and in possession of PEG tube.? EXPERIMENTAL PLASTICS FABRICATOR confirmed that patient also intakes nourishment P.O.? Patient?s surrogate medical decision maker is father, Seamus Claudioherber Rubio.? Patient?s PCP is Dr. Crocker.? Patient?s father confirmed that prior to admission patient was aligned with [facility].? EXPERIMENTAL PLASTICS FABRICATOR informed patient?s father that hospice status would be ceased due to admission.? Upon patient?s hospital discharge, hospice services could be resumed at discretion of father.? Father confirmed that patient is Full Code.? Patient released from state longterm under Compassionate Relief program.? Patient?s traffic control officer is Mehreen Damon .? Discharge plan is for the patient to return [facility] at the time of discharge.? academic services professional will need to arrange transportation on behalf of the patient.? No discharge needs identified by the patient?s father. ?No further intervention required at this time, director social service will be available to address any further concerns.? Next of Kin: Seamus Rod Sr. D/C Plan: SNF
--- NOTE | 2024-11-18 15:07 | PC.SS ---
Contact information: Juani Kaur, mother; . Alicia Rod, sister; .
[2024-11-18 16:22] LABS: Base Excess 13 (-3-3); HCO3 39 mEq/L (20-26); Inspired Oxygen, FIO2 50 %; O2 Saturation 99 % (91-98); PCO2 62 mmHg (32.0-48.0); PO2 114 mmHg (83-108); pH, Arterial 7.42 (7.35-7.45)
[2024-11-18 16:23] LABS: Allen Test Performed/OK; Puncture Site Right Radial
[2024-11-18 16:43] LABS: Sodium 157 mMol/L (136-145)
--- NOTE | 2024-11-18 16:49 | PC.NURSE ---
I notified Dr. Prado regarding patient not taking deep enough breaths after extubation. Oxygen is good but pt is tachypneic and tachycardic with shallow breaths. At this time Dr. Prado want to continue to keep pt on bipap unless he needs more advanced treatment.
[2024-11-18 19:51] LABS: Sodium 151 mMol/L (136-145)
[2024-11-18] MEDS: AZITHROMYCIN INJ 500 MG in SODIUM CHLORIDE 0.9% 250 ML 250 ML 250 MG IV (21:03)
[2024-11-18] MEDS: BALSAM PERU/CASTOR OIL (Venelex) 60 GM TUBE TOP (21:03)
[2024-11-18 23:03] LABS: Sodium 157 mMol/L (136-145)
[2024-11-19] VITALS (52 sets, daily range): BP systolic 90–145; BP diastolic 47–89; PULSE 80–100; RESP 7–35; TEMP 36.2–37.1; O2SAT 93–100
[2024-11-19] MEDS: PIPER/TAZO INJ 4.5 GM in SODIUM CHLORIDE 0.9% (POP) 100 ML IV ×2 (00:40→05:32)
[2024-11-19 03:37] LABS: Basophils % (Auto) 0 % (0-2.5); Eosinophils # (Auto) 0.6 Thou/mm3 (0.0-0.5); Eosinophils % (Auto) 6 % (0-10); Hematocrit 28.6 % (41.0-53.0); Hemoglobin 9.1 g/dL (13.5-16.0); Immature Granulocytes % (Auto) 1 % (0-0); Immature Granulocytes Auto 0.07 Thou/mm3 (0.00-0.00); Lymphocytes # (Auto) 2.4 Thou/mm3 (1.0-4.8); Lymphocytes % (Auto) 24 % (10-50); Mean Corpuscular HGB Conc 31.8 g/dl (31.0-37.0); Mean Corpuscular Hemoglobin 26.6 pg (25.0-35.0); Mean Corpuscular Volume 84 fL (80-100); Monocytes # (Auto) 0.6 Thou/mm3 (0.0-0.8); Monocytes % (Auto) 6 % (0-12); Neutrophils # (Auto) 6.2 Thou/mm3 (1.8-7.7); Neutrophils % (Auto) 63 % (37-80); Nucleated Red Blood Cell % 0 /100 WBC (0); Platelet Count 233 Thou/mm3 (140-440); RDW Standard Deviation 56.8 fL (35.1-43.9); Red Blood Count 3.42 Miln/mm3 (4.50-5.90); White Blood Count 9.9 Thou/mm3 (3.8-10.6)
[2024-11-19 04:40] LABS: Base Excess 13 (-3-3); HCO3 39 mEq/L (20-26); Inspired Oxygen, FIO2 30 %; O2 Saturation 99 % (91-98); PCO2 59 mmHg (32.0-48.0); PO2 101 mmHg (83-108); pH, Arterial 7.43 (7.35-7.45)
[2024-11-19 04:43] LABS: Alanine Aminotransferase 22 U/L (10-49); Albumin, Serum 3.6 gm/dL (3.5-5.0); Albumin/Globulin Ratio 1.2 (1.2-2.2); Alkaline Phosphatase 123 U/L (46-116); Anion Gap 9 (7-16); BUN/Creatinine Ratio 40 Ratio (12-20); Bilirubin,Total < 0.2 mg/dL (0.3-1.2); Blood Urea Nitrogen 32 mg/dL (9-23); Calcium (Corrected) 11.3 mg/dL (8.5-10.1); Carbon Dioxide 36.7 mMol/L (20.0-31.0); Chloride 109 mMol/L (98-107); Creatinine (Component) 0.8 mg/dL (0.6-1.3); Estimated Creatinine Clearance 86.9 mL/min (>60); Glucose 136 mg/dL (74-106); Magnesium 1.6 mg/dL (1.6-2.6); Osmolality,Calculated 316 (275-295); Phosphorous 2.9 mg/dL (2.4-5.1); Potassium 3.1 mMol/L (3.4-5.1); Sodium 155 mMol/L (136-145); Total Protein 6.6 gm/dL (5.7-8.2); eGFR > 60 See Note
[2024-11-19 04:58] LABS: Puncture Site Right Radial
[2024-11-19 04:59] LABS: Allen Test Not Performed
--- NOTE | 2024-11-19 05:00 | XR_ITS ---
Examination: AP chest single view Technique: AP portable semiupright chest single view COMPARISON: November 18, 2024 INDICATIONS: Hypoxia and respiratory failure postintubation FINDINGS: The patient has been extubated Improvement in left lung pneumonia Normal heart size IMPRESSION: Mild improvement in left lung pneumonia
[2024-11-19] MEDS: LACTULOSE SYRUP 20 GM/30 ML UDC 10 GM GT (05:33)
[2024-11-19] MEDS: POTASSIUM CHLORIDE 10% 20 MEQ/15 ML UDC 40 MEQ GT ×2 (06:34→17:14)
[2024-11-19 07:32] LABS: Sodium 154 mMol/L (136-145)
--- NOTE | 2024-11-19 08:13 | PD.INTPROG ---
Documentation for date of: 11/19/24 Subjective Subjective Interval history: This is a 54-year-old male with a history of disseminated cocci and cocci meningitis who is a [facility] a jail. He is quadriplegic. Apparently he has been febrile at the jail for the last 2 to 3 days. Today he appeared to have some increased work of breathing and therefore EMS was called. Upon arrival to the ER the patient was very clammy, diaphoretic and with increased work of breathing and decision was made to intubate him. At the jail he had a fever to 102 and in the ED he has recorded temperature of 101. Information is limited and obtained from ER and records though unfortunately patient has not been to [facility] much in the recent past. 11/18-no acute overnight events, patient remains on free water via the PEG tube, good urinary output, afebrile 11/19-patient was successfully extubated yesterday to BiPAP. He has done well overnight. He is net positive and afebrile today he is awake alert and able to follow commands Critical Care Note Critical care time (min.): 0 Exam Vital Signs Temp Pulse Resp BP Pulse Ox O2 Del Method O2 Flow Rate 97.5 F 86 24 H 118/73 99 BiPAP 15 11/19/24 04:00 11/19/24 07:15 11/19/24 07:15 11/19/24 06:00 11/19/24 07:15 11/18/24 16:00 11/18/24 15:02 FiO2 30 11/19/24 07:15 Narrative Exam General-chronically ill-appearing, no acute distress, awake alert and following commands HEENT-normocephalic, atraumatic, sclera injected, temporal muscle wasting noted oral mucosa is dry, BiPAP in place Chest-lungs clear to auscultation bilaterally, heart regular rhythmic, no bruits or murmurs auscultated at time of exam, no increased work of breathing Abdomen-firm, nontender, bowel sounds present, PEG in place, no pain on palpation Extremities-flaccid paralysis, pulses palpable, no mottling, no cyanosis Physical Exam Completion Physical Exam Complete?: Yes Objective - Wait Staff Labs 11/19/24 03:29 11/19/24 06:35 Labs: Laboratory Results - last 24 hr 11/18/24 11/18/24 11/18/24 11:07 16:00 16:10 WBC RBC Hgb Hct MCV MCH MCHC RDW Std Deviation Plt Count Neut % (Auto) Lymph % (Auto) Morton % (Auto) Eos % (Auto) Baso % (Auto) Neut # (Auto) Lymph # (Auto) Morton # (Auto) Eos # (Auto) Baso # (Auto) Immature Gran # (Auto) Absolute Nucleated RBC Immature Gran % Nucleated RBC % Puncture Site Right Radial ABG pH 7.42 ABG pCO2 62 H ABG pO2 114 H ABG HCO3 39 H ABG O2 Saturation 99 H ABG Base Excess 13 H Oxygen Liter Flow FiO2 50 Sodium 152 H 157 H Potassium Chloride Carbon Dioxide Anion Gap BUN Creatinine Estim Creat Clear Calc eGFR BUN/Creatinine Ratio Glucose Calculated Osmolality Calcium Corrected Calcium Phosphorus Magnesium Total Bilirubin ALT Alkaline Phosphatase Total Protein Albumin Globulin Albumin/Globulin Ratio Procalcitonin 3.12 H 11/18/24 11/18/24 11/18/24 19:21 20:10 22:43 WBC RBC Hgb Hct MCV MCH MCHC RDW Std Deviation Plt Count Neut % (Auto) Lymph % (Auto) Morton % (Auto) Eos % (Auto) Baso % (Auto) Neut # (Auto) Lymph # (Auto) Morton # (Auto) Eos # (Auto) Baso # (Auto) Immature Gran # (Auto) Absolute Nucleated RBC Immature Gran % Nucleated RBC % Puncture Site Cancelled ABG pH Cancelled ABG pCO2 Cancelled ABG pO2 Cancelled ABG HCO3 Cancelled ABG O2 Saturation Cancelled ABG Base Excess Cancelled Oxygen Liter Flow Cancelled FiO2 Cancelled Sodium 151 H 157 H Potassium Chloride Carbon Dioxide Anion Gap BUN Creatinine Estim Creat Clear Calc eGFR BUN/Creatinine Ratio Glucose Calculated Osmolality Calcium Corrected Calcium Phosphorus Magnesium Total Bilirubin ALT Alkaline Phosphatase Total Protein Albumin Globulin Albumin/Globulin Ratio Procalcitonin 11/19/24 11/19/24 11/19/24 03:29 04:28 06:35 WBC 9.9 RBC 3.42 L Hgb 9.1 L Hct 28.6 L MCV 84 MCH 26.6 MCHC 31.8 RDW Std Deviation 56.8 H Plt Count 233 D Neut % (Auto) 63 Lymph % (Auto) 24 Morton % (Auto) 6 Eos % (Auto) 6 Baso % (Auto) 0 Neut # (Auto) 6.2 Lymph # (Auto) 2.4 Morton # (Auto) 0.6 Eos # (Auto) 0.6 H Baso # (Auto) 0.0 Immature Gran # (Auto) 0.07 H Absolute Nucleated RBC 0.00 Immature Gran % 1 H Nucleated RBC % 0 Puncture Site Right Radial ABG pH 7.43 ABG pCO2 59 H ABG pO2 101 ABG HCO3 39 H ABG O2 Saturation 99 H ABG Base Excess 13 H Oxygen Liter Flow FiO2 30 Sodium 155 H 154 H Potassium 3.1 L Chloride 109 H Carbon Dioxide 36.7 H Anion Gap 9 BUN 32 H Creatinine 0.8 Estim Creat Clear Calc 86.9 eGFR > 60 BUN/Creatinine Ratio 40 H Glucose 136 H Calculated Osmolality 316 H Calcium 11.0 H D Corrected Calcium 11.3 H D Phosphorus 2.9 Magnesium 1.6 Total Bilirubin < 0.2 L ALT 22 Alkaline Phosphatase 123 H Total Protein 6.6 Albumin 3.6 Globulin 3.0 Albumin/Globulin Ratio 1.2 Procalcitonin Assessment & Plan Additional Plan Additional Plan: In brief this is a 54-year-old male admitted to the ICU for acute on chronic hypoxic respiratory failure 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 Currently on antibiotics and will follow-up with cultures - Culture still pending Renal HyperNa-Free water deficit calculated, will start on free water via PEG tube with sodium checks every 4 hours -Improvement in sodium -Free water increased via the PEG tube -Continues to trend downward HyperCa-likely due to dehydration, will receive fluids -Remains elevated -Improving today Dehydration-will receive fluids - Improving Hypokalemia-replete via PEG tube GI Status post PEG tube-will resume tube feeds Endo Stable Heme Anemia- normocytic, no active bleed noted - Dropped from yesterday though this is likely dilutional secondary to fluids ID Pneumonia-on Zosyn and azithromycin, given 1 dose of vancomycin -Stable -All cultures negative to date -De-escalate antibiotics Decubitus ulcer- wound care eval discussed with the ICU team Patient had been on hospice previously it is unclear his current CODE STATUS also unclear whether he is on hospice or not. Will obtain a social work consult for further evaluation s/w eval appreciated Labs, imaging and records reviewed Approximately 35minutes required evaluation, exam, review, imaging, discussion of formulation of plan of care for this patient with acute respiratory failure at high risk for further and ongoing decompensation Provider Notation Provider Notation: Although this document has been carefully reviewed, there may still be some phonetic and other typographical errors. These errors are purely grammatical due to imperfections in the software program and should not be construed in any way to compromise the substance of the patient's medical care during this visit. Thank you for the opportunity and privilege in assisting you with this patient's care and management.
[2024-11-19] MEDS: PANTOPRAZOLE INJ 40 MG VIAL IVP (08:35)
[2024-11-19] MEDS: AZITHROMYCIN INJ 500 MG in SODIUM CHLORIDE 0.9% 250 ML 250 ML 250 MG IV (08:35)
[2024-11-19] MEDS: BALSAM PERU/CASTOR OIL (Venelex) 60 GM TUBE TOP ×2 (08:36→20:14)
[2024-11-19] MEDS: ENOXAPARIN SOD INJ 40 MG/0.4 ML SYRINGE SC (08:36)
[2024-11-19] MEDS: MORPHINE SULF LIQD 10 MG/5 ML UDC GT (08:36)
[2024-11-19] MEDS: FLUCONAZOLE SUSP 40 MG/ML ML 200 MG GT (09:10)
--- NOTE | 2024-11-19 09:10 | PCS.ST ---
Hold Swallow Evaluation until respiratory function is more stable and pt can protect airway well enough for PO trials. Pt was tolerating a recent baseline diet Dysphagia 2/Regular liquids with no aspiration.
[2024-11-19] MEDS: cefTRIAXone/D5w 1gm IV premix 1 GM/50 ML BAG IV (09:34)
--- NOTE | 2024-11-19 10:52 | ESPR_ITS ---
Documentation for date of: 11/19/24 Subjective Subjective Interval history: Patient was intubated and mechanically ventilated upon my evaluation, history was taken from chart review and facility. Patient is a 54 year old male, resident of [facility] and previously [facility], with a past medical history significant for chronic respiratory failure on 3L O2 at baseline, quadriplegia, history of disseminated coccidiomycosis, primary hypertension, [id number]-[id number] diabetes mellitus type 2, hyperlipidemia, hydrocephalus s/p CELL PLASTERER shunt and PEG tube presenting with a chief complaint of hypoxia and diaphoresis. According to the nurse at [facility] earlier today patient became hypoxic in the 70s on 5L via NC and was subsequently started on 15L via NRB and the ambulance was called to transfer patient to the ED. According to the emergency notes, patient was saturating 82% on 15L via NRB and unresponsive, subsequently he was intubated and mechanically ventilated. Of note at patient's baseline his GCS is 12/15 [he says nonsensical things at times according to the facility]. From chart review he was first admitted to [facility] in September and discharged to [facility] on 11/14/2024. ED course: BP 150/91, pulse 123, RR 36, temp 101.1 F, SpO2 84% on NRB. Labs showed Hb 11.8, HCT 39.4, NA 166, OSM 337, CL 113, bicarb >40, corrected Ca 13.5, ALP 155. pH 7.47, UGW174, PO261, bicarb 44, anion gap 13. Chest x-ray showed no obvious consolidation, pulmonary edema or pleural effusion. ET tube 5.8 cm above micki. In the ED patient received normal saline 1L IVF bolus, etomidate 20 Mg IV x 1, succinyl chloride 100 Mg IV x 1, albuterol 5 Mg IV x 1, ceftriaxone 2 g IV x 1, azithromycin 500 Mg IV x 1 on pamidronate 60 Mg IV x 1. Patient will be admitted to the ICU for management of acute on chronic respiratory failure with hypoxia and hypercarbia secondary to possible aspiration 11/18/2024: Overnight patient had 1 bowel movement, free water flushes 150cc/H ,tube feeds at 65 cc per. Urine output 50 cc / 24 hours and 100 cc yellow mucus secretions suctioned . Vent: ACNP, VT 395, RR 16, PEEP 5, FiO2 55%. Patient on propofol infusion 25 mcg/H, RASS -2. Hb decreased to 10.8 from 11.8, WBC increased to 11 from 8.2, potassium decreased to 2.8, NA 162, bicarb 39, corrected calcium 13.5. On ABG pH 7.45, pCO2 61, PaO2 100, bicarb 42. Urinalysis LE+ , WBC 16. sputum Gram stain GPC 4+ prelim. CXR this a.m. showed abundant stool in the bowel. CT brain n.c. Showed shunt right lateral ventricle, subacute chronic left subdural hygroma. Old blowout fracture left orbit. Will give KCl 80 mEq GT x 1, increase free water flushes to 250 cc/HR, vancomycin 1 g IV x 1. Wean FiO2 45% and switch to spontaneous mode. Sedation vacation. 11/19/2024: Overnight patient was on Bipap. He had 835cc urine output/24 hrs, Kcl 40meq IV x 1, minimal secretions suctioned and 1 bowel movement. Patient was extubated yesterday at 14 This morning patient is A&O x [address] [[address]]. Hb decreased to 9.1 from 10.8, WBC decreased to 9.9 from 11, Na decreased to 154 from 157, bicarb decreased to 36.7 from 39, K increased to 3.1 from 2.8 and corrected calcium decreased to 11.3 from 13.5. Blood, urine and sputum culture negative. MRSA nares negative. Will de-escalate Zosyn to ceftriaxone 1 g IV daily. Patient saturating 98-99% on 5L via oxy-mask, currently clinically stable and fit for downgrade to the floor. Exam Vital Signs Temp Pulse Resp BP Pulse Ox O2 Del Method O2 Flow Rate 97.2 F 86 28 H 121/80 100 Oxy Mask 4 11/19/24 08:00 11/19/24 10:00 11/19/24 10:00 11/19/24 10:11/19/24 10:00 11/19/24 08:00 11/19/24 08:00 FiO2 30 11/19/24 07:15 Narrative Exam Constitutional Bitemporal wasting, cachectic. Alert and Oriented x 2 [Person,Place] HEENT PERRL, pupils constricted, right clavicle has area of erythema and swelling medially, trachea midline.Carotid pulses palpated. Scar on giuglular fossa, 1 mm area of dehiscence Respiratory Muscle wasting on chest wall clear to auscultation on anterior and posterior chest wall JVD not assessed Cardiovascular S1 and S2 audible, RRR. No murmurs carotid bruit. JVD not assessed Abdominal Soft and non tender to palpation in all quadrants. PEG tube noted, exit site clean. BS + Genitourinary No bladder tenderness, no flank pain. Normal to palpation. Bauman in situ Musculoskeletal Flaccid tone in all extremities. Fingers swollen on both hands, overgrown fingernails Neurological Triple flexion reflex present. GCS E4, V5, M6 Skin Grade 2 sacral ulcer on left gluteus, 3 grade 2 ulcers on right gluteus. Covered with bandage, clean and dry Objective Labs 11/19/24 03:29 11/19/24 15:16 Labs: Laboratory Results - last 24 hr 11/18/24 11/18/24 11/18/24 11:07 16:00 16:10 WBC RBC Hgb Hct MCV MCH MCHC RDW Std Deviation Plt Count Neut % (Auto) Lymph % (Auto) [place] % (Auto) Eos % (Auto) Baso % (Auto) Neut # (Auto) Lymph # (Auto) [place] # (Auto) Eos # (Auto) Baso # (Auto) Immature Gran # (Auto) Absolute Nucleated RBC Immature Gran % Nucleated RBC % Puncture Site Right Radial ABG pH 7.42 ABG pCO2 62 H ABG pO2 114 H ABG HCO3 39 H ABG O2 Saturation 99 H ABG Base Excess 13 H Oxygen Liter Flow FiO2 50 Sodium 152 H 157 H Potassium Chloride Carbon Dioxide Anion Gap BUN Creatinine Estim Creat Clear Calc eGFR BUN/Creatinine Ratio Glucose Calculated Osmolality Calcium Corrected Calcium Phosphorus Magnesium Total Bilirubin ALT Alkaline Phosphatase Total Protein Albumin Globulin Albumin/Globulin Ratio Procalcitonin 3.12 H 11/18/24 11/18/24 11/18/24 19:21 20:10 22:43 WBC RBC Hgb Hct MCV MCH MCHC RDW Std Deviation Plt Count Neut % (Auto) Lymph % (Auto) [place] % (Auto) Eos % (Auto) Baso % (Auto) Neut # (Auto) Lymph # (Auto) [place] # (Auto) Eos # (Auto) Baso # (Auto) Immature Gran # (Auto) Absolute Nucleated RBC Immature Gran % Nucleated RBC % Puncture Site Cancelled ABG pH Cancelled ABG pCO2 Cancelled ABG pO2 Cancelled ABG HCO3 Cancelled ABG O2 Saturation Cancelled ABG Base Excess Cancelled Oxygen Liter Flow Cancelled FiO2 Cancelled Sodium 151 H 157 H Potassium Chloride Carbon Dioxide Anion Gap BUN Creatinine Estim Creat Clear Calc eGFR BUN/Creatinine Ratio Glucose Calculated Osmolality Calcium Corrected Calcium Phosphorus Magnesium Total Bilirubin ALT Alkaline Phosphatase Total Protein Albumin Globulin Albumin/Globulin Ratio Procalcitonin 11/19/24 11/19/24 11/19/24 03:29 04:28 06:35 WBC 9.9 RBC 3.42 L Hgb 9.1 L Hct 28.6 L MCV 84 MCH 26.6 MCHC 31.8 RDW Std Deviation 56.8 H Plt Count 233 D Neut % (Auto) 63 Lymph % (Auto) 24 [place] % (Auto) 6 Eos % (Auto) 6 Baso % (Auto) 0 Neut # (Auto) 6.2 Lymph # (Auto) 2.4 [place] # (Auto) 0.6 Eos # (Auto) 0.6 H Baso # (Auto) 0.0 Immature Gran # (Auto) 0.07 H Absolute Nucleated RBC 0.00 Immature Gran % 1 H Nucleated RBC % 0 Puncture Site Right Radial ABG pH 7.43 ABG pCO2 59 H ABG pO2 101 ABG HCO3 39 H ABG O2 Saturation 99 H ABG Base Excess 13 H Oxygen Liter Flow FiO2 30 Sodium 155 H 154 H Potassium 3.1 L Chloride 109 H Carbon Dioxide 36.7 H Anion Gap 9 BUN 32 H Creatinine 0.8 Estim Creat Clear Calc 86.9 eGFR > 60 BUN/Creatinine Ratio 40 H Glucose 136 H Calculated Osmolality 316 H Calcium 11.0 H D Corrected Calcium 11.3 H D Phosphorus 2.9 Magnesium 1.6 Total Bilirubin < 0.2 L ALT 22 Alkaline Phosphatase 123 H Total Protein 6.6 Albumin 3.6 Globulin 3.0 Albumin/Globulin Ratio 1.2 Procalcitonin ABG Interpretation ABG results: 11/17/24 11/17/24 11/17/24 14:05 15:48 19:12 ABG pH 7.39 7.47 H 7.44 ABG pCO2 75 H* 61 H D 64 H ABG pO2 166 H 61 L D 73 L ABG HCO3 45 H 44 H 43 H ABG O2 Saturation 100 H 92 95 ABG Base Excess 16 H 18 H 16 H 11/18/24 11/18/24 11/18/24 04:57 16:10 20:10 ABG pH 7.45 7.42 Cancelled ABG pCO2 61 H 62 H Cancelled ABG pO2 100 D 114 H Cancelled ABG HCO3 42 H 39 H Cancelled ABG O2 Saturation 98 99 H Cancelled ABG Base Excess 16 H 13 H Cancelled 11/19/24 04:28 ABG pH 7.43 ABG pCO2 59 H ABG pO2 101 ABG HCO3 39 H ABG O2 Saturation 99 H ABG Base Excess 13 H Quality Measures Quality Measures sepsis Current suspected stage: sepsis Possible source: pulmonary and genitourinary Blood cultures ordered: yes Antibiotic ordered: Yes Assessment & Plan Assessment Current Active Medications: Generic Name Dose Route Start Last Admin Trade Name Freq PRN Reason Stop Dose Admin Acetaminophen 650 mg 11/18/24 07:34 Acetaminophen Nicolette 325 Mg/10 Ml Udc GT 12/18/24 07:33 Q4HR PRN Pain Or Fever > 100.3 Protocol Balsam Bayard/Rockwell Oil 0 gm 11/18/24 21:00 11/19/24 08:36 Balsam Gregory/Rockwell Oil (Venelex) 60 Gm Tube TOP 12/18/24 20:59 1 appln BID MCKENZIE Administration Bisacodyl 10 mg 11/18/24 15:21 Bisacodyl 10 Mg Supp ME 12/18/24 15:20 Q72H PRN constipation Protocol Dextrose 50 ml 11/17/24 18:25 Dextrose 50%-Water Inj 50 Ml Syringe IV 12/17/24 18:24 Q15MIN PRN BG <50 OR BG <70 & pt unresponsive Enoxaparin Sodium 40 mg 11/17/24 17:15 11/19/24 08:36 Enoxaparin Sod Inj 40 Mg/0.4 Ml Syringe SC 12/01/24 17:14 40 mg QDAY MCKENZIE Administration Fluconazole 200 mg 11/17/24 17:15 11/19/24 09:10 Fluconazole Susp 40 Mg/Ml Ml GT 11/24/24 17:14 200 mg QDAY MCKENZIE Administration Glucagon 1 mg 11/17/24 18:25 Glucagon Inj 1 Mg Vial IM Q15MIN PRN BG <70, and no IV access Azithromycin 500 mg/ Sodium 250 mls @ 250 mls/hr 11/18/24 21:00 11/19/24 10:18 Chloride IV 11/19/24 20:59 Infused QDAY MCKENZIE Infusion Propofol 1,000 mg in 100 mls @ 1.877 mls/hr 11/17/24 19:12 11/18/24 10:20 Diprivan Ivpb IV 12/17/24 13:53 0 mcg/kg/min .Q24H PRN 0 mls/hr PER PROTOCOL Titration Protocol 5 MCG/KG/MIN Ceftriaxone Sodium/Dextrose 1 gm in 50 mls @ 100 mls/hr 11/19/24 09:17 11/19/24 10:18 Rocephin/D5w 1gm Iv Premix IV 11/26/24 09:16 Infused QDAY MCKENZIE Infusion Insulin Human Lispro 0 unit 11/17/24 18:30 11/19/24 05:28 Insulin Lispro (Admelog) 1 Unit/0.01 Ml Unit SC 12/17/24 18:29 Not Given Q6HR MCKENZIE Protocol Lactulose 10 gm 11/18/24 10:00 11/19/24 05:33 Lactulose Syrup 20 Gm/30 Ml Udc GT 12/18/24 09:59 10 gm TID MCKENZIE Administration Protocol Morphine Sulfate 4 mg 11/18/24 15:29 Morphine Sulf Liqd 10 Mg/5 Ml [facility] GT 11/23/24 15:28 Q2H PRN pain (scale score 7-10) Morphine Sulfate 1 mg 11/18/24 15:29 11/19/24 08:36 Morphine Sulf Liqd 10 Mg/5 Ml [facility] GT 11/23/24 15:28 1 mg Q2H PRN Administration pain (scale score 1-3) Protocol Morphine Sulfate 2 mg 11/18/24 15:25 Morphine Sulf Liqd 10 Mg/5 Ml [facility] GT 11/23/24 15:24 Q2H PRN pain (scale score 4-6) Pantoprazole Sodium 40 mg 11/17/24 17:15 11/19/24 08:35 Pantoprazole Inj 40 Mg Vial IVP 12/17/24 17:14 40 mg QDAY MCKENZIE Administration Sodium Chloride 3 ml 11/17/24 13:33 11/17/24 14:48 Sodium Chloride Rt Nicolette 0.9% 3 Ml Nebu INH 12/17/24 13:32 3 ml PRN PRN Administration SOLN Plan Patient is a 54 year old male, resident of [facility] and previously [facility], with a past medical history significant for chronic respiratory failure on 3L O2 at baseline, quadriplegia, history of disseminated coccidiomycosis, primary hypertension, [id number] diabetes mellitus type 2, hyperlipidemia, hydrocephalus s/p CELL PLASTERER shunt and PEG tube presenting with a chief complaint of hypoxia and diaphoresis. Patient will be admitted to the ICU for management of acute on chronic respiratory failure with hypoxia and hypercarbia secondary to possible aspiration NEURO Quadriplegia Hydrocephalus s/p CELL PLASTERER shunt Chronic subdural hygroma Dx: CT brain n.c. Showed shunt right lateral ventricle, subacute chronic left subdural hygroma. Old blowout fracture left orbit. CVS History of primary hypertension Rx: Antihypertensives on hold for now due to normotension PULM Acute on chronic respiratory failure with hypoxia and hypercarbia secondary to aspiration Pneumonia - resolving Chronic respiratory acidosis DDx: Aspiration pneumonia, central apnea secondary to worsening hydrocephalus Dx: pH 7.43, pCO2 59, PaO2 101, bicarb 39. Rx: Wean supplemental O2 as tolerated. On 3L O2 via NC at home GI/Hep PEG tube in situ Rx: Tube feeds as per shafting cleaner. Chronic Constipation Rx: Lactulose 10g GT TID PRN RENAL Hyperosmolar hypernatremia Hypercalcemia DDx: Most likely due to poor oral intake and dehydration Dx: Na 154, Osm 316. Corrected Ca 11.3. Free water deficit 3.7L Rx: Na checks q4hrly RRX: Follow up on Na. Goal of correction 12mmol per day. Most likely chronic hypernatremia and low risks associated with fast rate of correction HEME/ONC Normocytic Anemia DDx: Anemia of chronic disease, LAURA Dx: Hb 10.8 ---> 9.1 Rx: Monitor CBC, monitor for signs of active bleeding ENDO NIDDM type 2 Rx: SSI q 6hrly HLD Rx: Medication on hold for now ID Disseminated Coccidiomycosis Sepsis secondary to Aspiration Pneumonia - resolving DDx: Aspiration pneumonia, infected CELL PLASTERER shunt, bacteremia, UTI Dx: Sepsis due to [aspiration pneumonia] with acute sepsis-related organ dysfunction as evidence by [Acute on chronic respiratory failure]. Rx: - sputum Gram stain GPC 4+ prelim. - De-escalated Zosyn to Ceftriaxone 1G IV daily on [11/19- MSK/DERM Gluteal Ulcers Rx: Wound care referral. wound care as per wound care nurse ICU Health maintenance: Dispo: Downgrade to Telemetry Diet: TUbe feeds via GT. 65 cc/hr for 18 hours. 250cc/hr free water flushes DVT ppx: Enoxaparin 40mg SC daily GI ppx: Protonix 40mg qD Mechanical ventilattion: NO Sedation: None IV lines: 3 pIV Central line: No Arterial line: No Bauman: Yes [replaced 11/17/24 Code status: FULL CODE, Hospice Plan of care discussed with Attending Dr. Prado and PGY 3 Dr. Bogdan Flores MD PGY 1 Disclaimer: This note was dictated by speech recognition. Minor errors in customs compliance manager may be present due to voice recognition software.
--- NOTE | 2024-11-19 11:17 | PD.HHHP ---
Documentation for date of: 11/19/24 HPI - Hospitalist History of Present Illness History of Present Illness: [id number] Review of Systems Review of Systems Systems Reviewed: All systems reviewed, normal except as documented ROS Unobtainable: unobtainable due to mental status Constitutional Constitutional: Reports snoring (hytrhrhrhrhrhyr) and Reports stops breathing during sleep Respiratory Respiratory: Reports snoring (hytrhrhrhrhrhyr) Past Medical History Past Medical History Comments PMH COMMENT: Past medical history: Disseminated coccidiomycosis Hydrocephalus s/p SERVICE ORDER DISPATCHER CHIEF shunt [id number] diabetes mellitus type 2 Primary pretension Hyperlipidemia S/p PEG tube Chronic respiratory failure on 3L O2 at baseline Quadriplegia Medication list: Fluconazole 200 Mg GT daily Past surgical history: Unknown Allergies: NKFDA Social history: Patient is a resident at [facility]. At baseline his GCS is 12/15 [E4, V4,M4] Family History: Unobtainable Meds Home Medications and Allergies Home Medications ?Medication ?Instructions ?Recorded ?Confirmed ?Type bisacodyl 10 mg rectal suppository 10 mg KS Q72H PRN constipation 11/18/24 11/18/24 History bisacodyl 10 mg rectal suppository 10 mg KS QDAY PRN constipation 11/18/24 11/18/24 History (Dulcolax (bisacodyl)) fluconazole 200 mg tablet 200 mg PO QDAY 11/18/24 11/18/24 History (Diflucan) lorazepam 0.5 mg tablet (Ativan) 0.5 mg PO Q6H PRN anxiety 11/18/24 11/18/24 History magnesium hydroxide 400 mg/5 mL 30 ml PO Q72H PRN constipation 11/18/24 11/18/24 History oral suspension (Milk of Magnesia) morphine 20 mg/5 mL (4 mg/mL) oral 1 mg PO Q2H PRN pain (scale score 11/18/24 11/18/24 History solution 1-3) morphine 20 mg/5 mL (4 mg/mL) oral 2 mg PO Q2H PRN pain (scale score 11/18/24 11/18/24 History solution 4-6) morphine 20 mg/5 mL (4 mg/mL) oral 4 mg PO Q2H PRN pain (scale score 11/18/24 11/18/24 History solution 7-10) sodium phosphates 19 gram-7 118 ml KS Q72H PRN constipation 11/18/24 11/18/24 History gram/118 mL enema (Fleet Enema) Allergies Allergy/AdvReac Type Severity Reaction Status Date / Time No Known Allergies Allergy Verified 11/17/24 22:32 Exam Vital Signs Temp Pulse Resp BP Pulse Ox O2 Del Method O2 Flow Rate 97.2 F 86 28 H 121/80 100 Oxy Mask 4 11/19/24 08:00 11/19/24 10:00 11/19/24 10:00 11/19/24 10:00 11/19/24 10:00 11/19/24 08:00 11/19/24 08:00 FiO2 30 11/19/24 07:15 Constitutional Constitutional: no acute distress Routine HEENT Exam Head: Present normocephalic and atraumatic Eye: Present EOMI and PERRL ENT: Present mucous membranes moist Routine Neck Exam Neck: Present supple and trachea midline Routine Respiratory Exam Respiratory: Present chest non-tender, lungs clear, normal breath sounds and no resp distress Routine Abdominal Exam Abdominal: Present soft and normoactive bowel sounds Routine Extremities Exam Extremities: Present full ROM Routine Skin Exam Skin: Present intact, dry and warm Routine Neurological Exam Neurological: Present alert, oriented X3 and CN II-XII intact Routine Psychiatric Exam Psychiatric: Present normal affect and normal thought process Results - Hospitalist Labs Diagrams: 11/19/24 03:29 11/19/24 06:35 Labs: Short CBC 11/19/24 Range/Units 03:29 WBC 9.9 (3.8-10.6) Thou/mm3 Hgb 9.1 L (13.5-16.0) g/dL Hct 28.6 L (41.0-53.0) % Plt Count 233 D (140-440) Thou/mm3 BMP 11/18/24 11/18/24 11/18/24 11:07 16:00 19:21 Sodium 152 H 157 H 151 H Potassium Chloride Carbon Dioxide BUN Creatinine Glucose Calcium 11/18/24 11/19/24 11/19/24 22:43 03:29 06:35 Sodium 157 H 155 H 154 H Potassium 3.1 L Chloride 109 H Carbon Dioxide 36.7 H BUN 32 H Creatinine 0.8 Glucose 136 H Calcium 11.0 H D Liver Function 11/19/24 Range/Units 03:29 Total Bilirubin < 0.2 L (0.3-1.2) mg/dL ALT 22 (10-49) U/L Alkaline Phosphatase 123 H (46-116) U/L Albumin 3.6 (3.5-5.0) gm/dL ABG Interpretation ABG results: 11/17/24 11/17/24 11/17/24 14:05 15:48 19:12 ABG pH 7.39 7.47 H 7.44 ABG pCO2 75 H* 61 H D 64 H ABG pO2 166 H 61 L D 73 L ABG HCO3 45 H 44 H 43 H ABG O2 Saturation 100 H 92 95 ABG Base Excess 16 H 18 H 16 H 11/18/24 11/18/24 11/18/24 04:57 16:10 20:10 ABG pH 7.45 7.42 Cancelled ABG pCO2 61 H 62 H Cancelled ABG pO2 100 D 114 H Cancelled ABG HCO3 42 H 39 H Cancelled ABG O2 Saturation 98 99 H Cancelled ABG Base Excess 16 H 13 H Cancelled 11/19/24 04:28 ABG pH 7.43 ABG pCO2 59 H ABG pO2 101 ABG HCO3 39 H ABG O2 Saturation 99 H ABG Base Excess 13 H Quality Measures Quality Measures sepsis Possible source: pulmonary and genitourinary Blood cultures ordered: yes
[2024-11-19 11:34] LABS: Sodium 155 mMol/L (136-145)
--- NOTE | 2024-11-19 14:26 | ESPR_ITS ---
<Statement entered by Campbell Gomez MD - 11/19/24 22:17> Patient was downgraded from ICU. Patient admits 54-year-old significant for quadriplegia, chronic respiratory failure (on home oxygen), hydrocephalus SP ELECTROLOG OPERATOR shunt, disseminated cocci and PEG tube was admitted to ICU on 11/17/2024 for AHRF requiring intubation. Patient was extubated today and is currently on 5 L nasal cannula. We will continue administration of Rocephin, azithromycin and fluconazole. PEG tube feeding restarted per dietitian recs. I discussed with and supervised the general internist physician involved in the care of this patient. Patient assessment and plan was discussed with entire medicine team, including my attending. I agree with the assessment and plan as documented by general internist doctor. Patient care was discussed with my attending physician Dr. Ida Gomez, PGY-2 Documentation for date of: 11/19/24 Subjective Subjective Interval history: This is a 54 year-old male with PMHx quadriplegia, chronic respiratory failure on 3L home oxygen, disseminated cocci with cocci menigitis, HTN, HLD, T2DM, hydrocephalus s/p ELECTROLOG OPERATOR shunt and PEG tube presented from [facility] on 11/17/24 with fever, hypoxia and diaphoresis, requiring intubation in ICU for suspected aspiration PNA. He was succssfully extubated on 11/19/2024, currently on 5L NC. Additionally, he had hyperosmotic hypernatremia of 166 on admission, currently on water flushes, last sodium 155 today. He was downgraded to floor today 11/19/2024. Continued on ABX for PNA. On free-water flushes for hypernatremia and Q4H sodium checks. Exam Vital Signs Temp Pulse Resp BP Pulse Ox O2 Del Method O2 Flow Rate 97.4 F 85 26 H 127/84 99 Oxy Mask 4 11/19/24 12:00 11/19/24 12:00 11/19/24 12:00 11/19/24 12:00 11/19/24 12:00 11/19/24 08:00 11/19/24 08:00 FiO2 30 11/19/24 07:15 Narrative Exam GENERAL * Cachectic, bitemporal wasting present, on OxiMax, satting well. HEENT * NCAT.?MAMADOU. Oral mucosa is moist. Patent Nares NECK * Supple, nontender, no thyromegaly, no meningismus, no JVD, no step offs CHEST * RRR, no m/g/r * CTAB, no w/r/r. Symmetrical chest rise. No intercostal subcostal retraction * Atraumatic, nontender, no crepitus, symmetrical expansion. ABDOMEN * Soft, flat, nontender. No guarding/rebound tenderness/masses. * Bowel sounds presents EXTREMITIES * No edema/cyanosis.? SKIN * Warm and dry, no jaundice/rashes. * Chest tube stoma intact, no signs of infection. * PEG tube in place and intact, no signs of infection. * Scar on giuglular fossa, 1 mm area of dehiscence NEUROMUSCULAR * No lumbar or midline, no CVA, no paraspinal muscle spasm or tenderness. * Poor muscle strength throughout * Moves all 4 extremities well, with full ROM and good CSM. * MCARTHUR x4, CN II-XII grossly intact. * No focal neurologic deficits. PSYCHIATRY * Cooperative, no SI or HI or hallucinations. Objective Labs 11/20/24 05:40 11/20/24 15:03 Labs: Laboratory Results - last 24 hr 11/18/24 11/18/24 11/18/24 16:00 16:10 19:21 WBC RBC Hgb Hct MCV MCH MCHC RDW Std Deviation Plt Count Neut % (Auto) Lymph % (Auto) [place] % (Auto) Eos % (Auto) Baso % (Auto) Neut # (Auto) Lymph # (Auto) [place] # (Auto) Eos # (Auto) Baso # (Auto) Immature Gran # (Auto) Absolute Nucleated RBC Immature Gran % Nucleated RBC % Puncture Site Right Radial ABG pH 7.42 ABG pCO2 62 H ABG pO2 114 H ABG HCO3 39 H ABG O2 Saturation 99 H ABG Base Excess 13 H Oxygen Liter Flow FiO2 50 Sodium 157 H 151 H Potassium Chloride Carbon Dioxide Anion Gap BUN Creatinine Estim Creat Clear Calc eGFR BUN/Creatinine Ratio Glucose Calculated Osmolality Calcium Corrected Calcium Phosphorus Magnesium Total Bilirubin ALT Alkaline Phosphatase Total Protein Albumin Globulin Albumin/Globulin Ratio 11/18/24 11/18/24 11/19/24 20:10 22:43 03:29 WBC 9.9 RBC 3.42 L Hgb 9.1 L Hct 28.6 L MCV 84 MCH 26.6 MCHC 31.8 RDW Std Deviation 56.8 H Plt Count 233 D Neut % (Auto) 63 Lymph % (Auto) 24 [place] % (Auto) 6 Eos % (Auto) 6 Baso % (Auto) 0 Neut # (Auto) 6.2 Lymph # (Auto) 2.4 [place] # (Auto) 0.6 Eos # (Auto) 0.6 H Baso # (Auto) 0.0 Immature Gran # (Auto) 0.07 H Absolute Nucleated RBC 0.00 Immature Gran % 1 H Nucleated RBC % 0 Puncture Site Cancelled ABG pH Cancelled ABG pCO2 Cancelled ABG pO2 Cancelled ABG HCO3 Cancelled ABG O2 Saturation Cancelled ABG Base Excess Cancelled Oxygen Liter Flow Cancelled FiO2 Cancelled Sodium 157 H 155 H Potassium 3.1 L Chloride 109 H Carbon Dioxide 36.7 H Anion Gap 9 BUN 32 H Creatinine 0.8 Estim Creat Clear Calc 86.9 eGFR > 60 BUN/Creatinine Ratio 40 H Glucose 136 H Calculated Osmolality 316 H Calcium 11.0 H D Corrected Calcium 11.3 H D Phosphorus 2.9 Magnesium 1.6 Total Bilirubin < 0.2 L ALT 22 Alkaline Phosphatase 123 H Total Protein 6.6 Albumin 3.6 Globulin 3.0 Albumin/Globulin Ratio 1.2 11/19/24 11/19/24 11/19/24 04:28 06:35 10:45 WBC RBC Hgb Hct MCV MCH MCHC RDW Std Deviation Plt Count Neut % (Auto) Lymph % (Auto) [place] % (Auto) Eos % (Auto) Baso % (Auto) Neut # (Auto) Lymph # (Auto) [place] # (Auto) Eos # (Auto) Baso # (Auto) Immature Gran # (Auto) Absolute Nucleated RBC Immature Gran % Nucleated RBC % Puncture Site Right Radial ABG pH 7.43 ABG pCO2 59 H ABG pO2 101 ABG HCO3 39 H ABG O2 Saturation 99 H ABG Base Excess 13 H Oxygen Liter Flow FiO2 30 Sodium 154 H 155 H Potassium Chloride Carbon Dioxide Anion Gap BUN Creatinine Estim Creat Clear Calc eGFR BUN/Creatinine Ratio Glucose Calculated Osmolality Calcium Corrected Calcium Phosphorus Magnesium Total Bilirubin ALT Alkaline Phosphatase Total Protein Albumin Globulin Albumin/Globulin Ratio ABG Interpretation ABG results: 11/17/24 11/17/24 11/17/24 14:05 15:48 19:12 ABG pH 7.39 7.47 H 7.44 ABG pCO2 75 H* 61 H D 64 H ABG pO2 166 H 61 L D 73 L ABG HCO3 45 H 44 H 43 H ABG O2 Saturation 100 H 92 95 ABG Base Excess 16 H 18 H 16 H 11/18/24 11/18/24 11/18/24 04:57 16:10 20:10 ABG pH 7.45 7.42 Cancelled ABG pCO2 61 H 62 H Cancelled ABG pO2 100 D 114 H Cancelled ABG HCO3 42 H 39 H Cancelled ABG O2 Saturation 98 99 H Cancelled ABG Base Excess 16 H 13 H Cancelled 11/19/24 04:28 ABG pH 7.43 ABG pCO2 59 H ABG pO2 101 ABG HCO3 39 H ABG O2 Saturation 99 H ABG Base Excess 13 H Quality Measures Quality Measures sepsis Current suspected stage: ruled out Possible source: pulmonary and genitourinary Blood cultures ordered: yes Antibiotic ordered: Yes Assessment & Plan Assessment Current Active Medications: Generic Name Dose Route Start Last Admin Trade Name Freq PRN Reason Stop Dose Admin Acetaminophen 650 mg 11/18/24 07:34 Acetaminophen Nicolette 325 Mg/10 Ml Udc GT 12/18/24 07:33 Q4HR PRN Pain Or Fever > 100.3 Protocol Balsam Gregory/Maribel Oil 0 gm 11/18/24 21:00 11/19/24 08:36 Balsam [place]/Maribel Oil (Venelex) 60 Gm Tube TOP 12/18/24 20:59 1 appln BID MCKENZIE Administration Bisacodyl 10 mg 11/18/24 15:21 Bisacodyl 10 Mg Supp IA 12/18/24 15:20 Q72H PRN constipation Protocol Dextrose 50 ml 11/17/24 18:25 Dextrose 50%-Water Inj 50 Ml Syringe IV 12/17/24 18:24 Q15MIN PRN BG <50 OR BG <70 & pt unresponsive Enoxaparin Sodium 40 mg 11/17/24 17:15 11/19/24 08:36 Enoxaparin Sod Inj 40 Mg/0.4 Ml Syringe SC 12/01/24 17:14 40 mg QDAY MCKENZIE Administration Fluconazole 200 mg 11/17/24 17:15 11/19/24 09:10 Fluconazole Susp 40 Mg/Ml Ml GT 11/24/24 17:14 200 mg QDAY MCKENZIE Administration Glucagon 1 mg 11/17/24 18:25 Glucagon Inj 1 Mg Vial IM Q15MIN PRN BG <70, and no IV access Azithromycin 500 mg/ Sodium 250 mls @ 250 mls/hr 11/18/24 21:00 11/19/24 10:18 Chloride IV 11/19/24 20:59 Infused QDAY MCKENZIE Infusion Propofol 1,000 mg in 100 mls @ 1.877 mls/hr 11/17/24 19:12 11/18/24 10:20 Diprivan Ivpb IV 12/17/24 13:53 0 mcg/kg/min .Q24H PRN 0 mls/hr PER PROTOCOL Titration Protocol 5 MCG/KG/MIN Ceftriaxone Sodium/Dextrose 1 gm in 50 mls @ 100 mls/hr 11/19/24 09:17 11/19/24 10:18 Rocephin/D5w 1gm Iv Premix IV 11/26/24 09:16 Infused QDAY MCKENZIE Infusion Insulin Human Lispro 0 unit 11/17/24 18:30 11/19/24 12:40 Insulin Lispro (Admelog) 1 Unit/0.01 Ml Unit SC 12/17/24 18:29 Not Given Q6HR [facility] Protocol Lactulose 10 gm 11/18/24 10:00 11/19/24 13:25 Lactulose Syrup 20 Gm/30 Ml [facility] 12/18/24 09:59 Not Given TID [facility] Protocol Morphine Sulfate 4 mg 11/18/24 15:29 Morphine Sulf Liqd 10 Mg/5 Ml [facility] 11/23/24 15:28 Q2H PRN pain (scale score 7-10) Morphine Sulfate 1 mg 11/18/24 15:29 11/19/24 08:36 Morphine Sulf Liqd 10 Mg/5 Ml [facility] 11/23/24 15:28 1 mg Q2H PRN Administration pain (scale score 1-3) Protocol Morphine Sulfate 2 mg 11/18/24 15:25 Morphine Sulf Liqd 10 Mg/5 Ml [facility] 11/23/24 15:24 Q2H PRN pain (scale score 4-6) Pantoprazole Sodium 40 mg 11/17/24 17:15 11/19/24 08:35 Pantoprazole Inj 40 Mg Vial IVP 12/17/24 17:14 40 mg QDAY MCKENZIE Administration Sodium Chloride 3 ml 11/17/24 13:33 11/17/24 14:48 Sodium Chloride Rt Nicolette 0.9% 3 Ml Nebu INH 12/17/24 13:32 3 ml PRN PRN Administration SOLN Plan This is a 54 year-old male with PMHx quadriplegia, chronic respiratory failure on 3L home oxygen, disseminated cocci with cocci menigitis, HTN, HLD, T2DM, hydrocephalus s/p ELECTROLOG OPERATOR shunt and PEG tube presented from [facility] on 11/17/24 with fever, hypoxia and diaphoresis, requiring intubation in ICU for suspected aspiration PNA. Extubated on 11/19/2024, currently on 5L NC. Acute on chronic respiratory failure S/p Intubation in ICU Likely aspiration pneumonia Chronic respiratory acidosis Chronic disseminated Coccidiomycosis UTI Was septic on admission, with tachycardia, fever, tachypnea, and mild leukocytosis. Admission UA was +LE, RBC 28, WBC 16, 1+ protein; CXR showed left lung PNA. Cultures have been negative. Responded well to fluids and ANTIBIOTICS. Received 1 day of VANCOMYCIN. Currently afebrile, no leukocytosis. ? Continue CEFTRIAXONE (11/19 to present) ? Continue AZITHROMYCIN 500 mg (11/18 to 11/19) ? Continue home FLUCONAZOLE 200 mg GT ? Monitoring pancultures HTN HLD Currently normotensive. ? Pending lipid panel Hypoosmotic hypernatremia Likely poor oral hydration. Sodium 164, admission, currently 155, on free water flushes. Free-water deficits of 2.6L. ? Continue sodium checks q.4h. ? Continue fluid flushes 175 cc every hour Electrolyte abnormalities Potassium 3.1, magnesium 1.6, both repleted Corrected calcium 11.3 ? Daily labs ? Replete as needed Normocytic anemia Hgb 11.8 > 10.8 > 9.1. Likely chronic with dilutional component. ? Pending Reticulocyte count ? Pending FOBT T2DM GLUCOSE control, no A1c on record. ? INSULIN sliding scale ? Accu-Cheks Quadriplegia Hx hydrocephalus S/p ELECTROLOG OPERATOR shunt S/p PEG tube Chronic subdural hygroma ? Continue with tube feed, registered dietitian following. ? On JEVITY, managed by registered dietitian. ? Patient recommendations from registered dietitian. Gluteal Ulcers Rx: Wound care referral. wound care as per wound care nurse 1) Stage 3 to sacrum, right thigh and right hip. Abrasions to bilateral knees: cleanse with wound cleanser, pat dry, apply Venelex ointment and cover with allyven dressing BID/PRN for soiling. 2) Healing trach stoma and gtube hypergranulation: cleanse with wound cleanser, pat dry, apply split gauze dressing as needed for soiling or bleeding. 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 Per ICU team, he is more alert today, and this seems to be his baseline. Health maintenance Diet: PEG tube GI prophylaxis: PROTONIX DVT prophylaxis: LOVENOX Antibiotics: CTX, AZITHORMYCIN CODE STATUS: FULL CODE Disposition: Treating PNA. Case was discussed with attending physician and senior resident. Zahra Garber DO PGYI Attending Provider Attestation/Addendum I, Kendra Prieto DO, attest that I was physically present for the edwards portions of the service and evaluated the patient with the resident and I reviewed and discussed the case with the resident and agree with the resident's findings and plans of care as documented above Patient is a 54-year-old male with past medical history of quadriplegia, chronic respiratory failure on 3 L, disseminated cocci with cocci meningitis hypertension, hyperlipidemia type 2 diabetes, hydrocephalus status post ELECTROLOG OPERATOR shunt and PEG tube who was admitted to the ICU for respiratory failure likely secondary to aspiration pneumonia. Patient was intubated and was extubated this morning and placed on oxime mask. Patient remains on 5 L nasal cannula. Patient was also found to be hyponatremic on admission. He has been receiving free water flushes and remains on D5W. Patient has been downgraded from ICU and hospitalist service will resume care. Patient remains on fluconazole due to history of disseminated coccidiomycosis. Patient appears to be confused upon further questioning. He has no active complaints at this time. Lungs are clear to auscultation bilaterally. Will titrate O2 as tolerated. Patient has a healing wound from previous tracheostomy site. PEG tube also appears clean dry and intact. No active drainage noted. Patient is cachectic. Will continue to follow with every 4 sodium checks.
[2024-11-19 15:42] LABS: Sodium 151 mMol/L (136-145)
[2024-11-19] MEDS: Magnesium Sulfate 2 GM Ivpb 2 GM/50 ML BAG IV (17:12)
[2024-11-19] MEDS: POTASSIUM CHL 10 mEq IVPB 10 MEQ/100 ML BAG 100 MEQ IV (17:12)
[2024-11-19] MEDS: POTASSIUM CHL 10 mEq IVPB 10 MEQ/100 ML BAG 70 MEQ IV ×3 (18:32→21:46)
[2024-11-19 19:36] LABS: Albumin, Serum 3.7 gm/dL (3.5-5.0); Anion Gap 7 (7-16); BUN/Creatinine Ratio 32 Ratio (12-20); Blood Urea Nitrogen 19 mg/dL (9-23); Calcium 10.3 mg/dL (8.3-10.6); Calcium (Corrected) 10.5 mg/dL (8.5-10.1); Chloride 109 mMol/L (98-107); Creatinine (Component) 0.6 mg/dL (0.6-1.3); Estimated Creatinine Clearance 122.2 mL/min (>60); Glucose 153 mg/dL (74-106); Osmolality,Calculated 303 (275-295); Phosphorous 2.3 mg/dL (2.4-5.1); Potassium 4.5 mMol/L (3.4-5.1); Sodium 150 mMol/L (136-145); eGFR > 60 See Note
[2024-11-19 23:29] LABS: Sodium 155 mMol/L (136-145)
[2024-11-20] VITALS (9 sets, daily range): BP systolic 132–152; BP diastolic 76–97; PULSE 97–110; RESP 17–24; TEMP 36.2–37.1; O2SAT 92–100; BMI 19.5
[2024-11-20] MEDS: DEXTROSE 5%-WATER 1,000 ML 75 ML IV ×2 (00:55→14:49)
[2024-11-20 03:24] LABS: Sodium 152 mMol/L (136-145)
[2024-11-20 06:24] LABS: Basophils % (Auto) 0 % (0-2.5); Eosinophils # (Auto) 0.5 Thou/mm3 (0.0-0.5); Eosinophils % (Auto) 8 % (0-10); Hematocrit 29.1 % (41.0-53.0); Immature Granulocytes % (Auto) 0 % (0-0); Immature Granulocytes Auto 0.02 Thou/mm3 (0.00-0.00); Immature Reticulocyte Fraction 16.1 % (2.3-13.4); Lymphocytes # (Auto) 1.6 Thou/mm3 (1.0-4.8); Lymphocytes % (Auto) 23 % (10-50); Mean Corpuscular HGB Conc 30.9 g/dl (31.0-37.0); Mean Corpuscular Hemoglobin 25.8 pg (25.0-35.0); Mean Corpuscular Volume 83 fL (80-100); Monocytes # (Auto) 0.3 Thou/mm3 (0.0-0.8); Monocytes % (Auto) 5 % (0-12); Neutrophils # (Auto) 4.3 Thou/mm3 (1.8-7.7); Neutrophils % (Auto) 63 % (37-80); Nucleated Red Blood Cell % 0 /100 WBC (0); Platelet Count 265 Thou/mm3 (140-440); RDW Standard Deviation 53.9 fL (35.1-43.9); Red Blood Count 3.49 Miln/mm3 (4.50-5.90); Reticulocyte % (Auto) 0.4 % (0.5-1.5); Reticulocyte Absolute Auto 12.9 Biln/L (25.0-75.0); Reticulocyte Hgb Content 24.7 pg (28.0-35.0); White Blood Count 6.8 Thou/mm3 (3.8-10.6)
[2024-11-20 06:42] LABS: Glucose Estimated Average 100 mg/dL (80-131); Hemoglobin A1C 5.1 % Hgb (4.8-6.0)
[2024-11-20 06:52] LABS: Alanine Aminotransferase 16 U/L (10-49); Albumin, Serum 3.7 gm/dL (3.5-5.0); Albumin/Globulin Ratio 1.2 (1.2-2.2); Alkaline Phosphatase 120 U/L (46-116); Anion Gap 11 (7-16); BUN/Creatinine Ratio 27 Ratio (12-20); Bilirubin,Total < 0.2 mg/dL (0.3-1.2); Blood Urea Nitrogen 16 mg/dL (9-23); Calcium 9.6 mg/dL (8.3-10.6); Calcium (Corrected) 9.8 mg/dL (8.5-10.1); Cardiac Risk Estimate 8.1 RATIO (4.0-6.7); Chloride 109 mMol/L (98-107); Cholesterol 146 mg/dL (132-200); Creatinine (Component) 0.6 mg/dL (0.6-1.3); Estimated Creatinine Clearance 122.2 mL/min (>60); Glucose 128 mg/dL (74-106); HDL Cholesterol 18 mg/dL (40-60); LDL Cholesterol,Calculated 81 mg/dL (0-130); Osmolality,Calculated 308 (275-295); Phosphorous 2.1 mg/dL (2.4-5.1); Potassium 3.5 mMol/L (3.4-5.1); Sodium 154 mMol/L (136-145); Total Protein 6.7 gm/dL (5.7-8.2); Triglycerides 233 mg/dL (30-150); eGFR > 60 See Note
[2024-11-20 07:12] LABS: OBS Card Lot # 23001; OBS Developer Lot # 23002; OBS Performed By LAB; OBS QC OK? Yes; Occult Blood, Stool Negative (Negative)
--- NOTE | 2024-11-20 07:20 | ESPR_ITS ---
<Statement entered by Campbell Gomez MD - 11/21/24 16:31> I discussed with and supervised the international marketing manager physician involved in the care of this patient. Patient assessment and plan was discussed with entire medicine team, including my attending. I agree with the assessment and plan as documented by international marketing manager doctor. Patient care was discussed with my attending physician Dr. Ida Gomez, PGY-2 Documentation for date of: 11/20/24 Subjective Subjective Interval history: No acute overnight events. Reports feeling better this morning. Denies fever, chills, headaches, chest pain, sob, cough, GI or urinary symptoms. Afebrile, no leukocytosis BP 136/84, tachycardia improving, HR 106, satting well on 2 L NC. Hgb slightly down 9.0, iron stores low, possible dilution, will start iron supplements on discharge after infection resolves. Sodium increased slightly overnight, D5W was started, last sodium check 152 at 7 AM this morning. Will continue D5W and sodium checks Q4H. No new cultures, 48H blood culture negative. Exam Vital Signs Temp Pulse Resp BP Pulse Ox O2 Del Method O2 Flow Rate 97.4 F 106 H 23 H 136/84 H 97 Oxy Mask 2 11/20/24 04:00 11/20/24 04:00 11/20/24 04:00 11/20/24 04:00 11/20/24 04:00 11/20/24 04:00 11/20/24 04:00 FiO2 30 11/19/24 07:15 Objective Labs 11/21/24 03:22 11/21/24 03:22 Labs: Laboratory Results - last 24 hr 11/19/24 11/19/24 11/19/24 06:35 10:45 15:16 WBC RBC Hgb Hct MCV MCH MCHC RDW Std Deviation Plt Count Neut % (Auto) Lymph % (Auto) Desha % (Auto) Eos % (Auto) Baso % (Auto) Neut # (Auto) Lymph # (Auto) Desha # (Auto) Eos # (Auto) Baso # (Auto) Immature Gran # (Auto) Absolute Nucleated RBC Immature Gran % Nucleated RBC % Retic Count (auto) Absolute Retic Immature Retic Fraction Retic Hgb Content CHr Sodium 154 H 155 H 151 H Potassium Chloride Carbon Dioxide Anion Gap BUN Creatinine Estim Creat Clear Calc eGFR BUN/Creatinine Ratio Glucose Estimated Ave Glu mg/dL Hemoglobin A1c Calculated Osmolality Calcium Corrected Calcium Phosphorus Magnesium Total Bilirubin ALT Alkaline Phosphatase Total Protein Albumin Globulin Albumin/Globulin Ratio Triglycerides Cholesterol LDL Cholesterol, Calc HDL Cholesterol Cholesterol/HDL Ratio 11/19/24 11/19/24 11/20/24 19:10 23:12 03:05 WBC RBC Hgb Hct MCV MCH MCHC RDW Std Deviation Plt Count Neut % (Auto) Lymph % (Auto) Desha % (Auto) Eos % (Auto) Baso % (Auto) Neut # (Auto) Lymph # (Auto) [place]ha # (Auto) Eos # (Auto) Baso # (Auto) Immature Gran # (Auto) Absolute Nucleated RBC Immature Gran % Nucleated RBC % Retic Count (auto) Absolute Retic Immature Retic Fraction Retic Hgb Content CHr Sodium 150 H 155 H 152 H Potassium 4.5 D Chloride 109 H Carbon Dioxide 34.0 H Anion Gap 7 BUN 19 Creatinine 0.6 Estim Creat Clear Calc 122.2 eGFR > 60 BUN/Creatinine Ratio 32 H Glucose [address] Glu mg/dL Hemoglobin A1c Calculated Osmolality 303 H Calcium 10.3 Corrected Calcium 10.5 H Phosphorus 2.3 L Magnesium Total Bilirubin ALT Alkaline Phosphatase Total Protein Albumin 3.7 Globulin Albumin/Globulin Ratio Triglycerides Cholesterol LDL Cholesterol, Calc HDL Cholesterol Cholesterol/HDL Ratio 11/20/24 05:40 WBC 6.8 RBC 3.49 L Hgb 9.0 L Hct 29.1 L MCV 83 MCH 25.8 MCHC 30.9 L RDW Std Deviation 53.9 H Plt Count 265 D Neut % (Auto) 63 Lymph % (Auto) 23 Desha % (Auto) 5 Eos % (Auto) 8 Baso % (Auto) 0 Neut # (Auto) 4.3 Lymph # (Auto) 1.6 Desha # (Auto) 0.3 Eos # (Auto) 0.5 Baso # (Auto) 0.0 Immature Gran # (Auto) 0.02 H Absolute Nucleated RBC 0.00 Immature Gran % 0 Nucleated RBC % 0 Retic Count (auto) 0.4 L Absolute Retic 12.9 L Immature Retic Fraction 16.1 H Retic Hgb Content CHr 24.7 L Sodium 154 H Potassium 3.5 D Chloride 109 H Carbon Dioxide 34.0 H Anion Gap 11 BUN 16 Creatinine 0.6 Estim Creat Clear Calc 122.2 eGFR > 60 BUN/Creatinine Ratio 27 H Glucose [address] Glu mg/dL 100 Hemoglobin A1c 5.1 Calculated Osmolality 308 H Calcium 9.6 Corrected Calcium 9.8 Phosphorus 2.1 L Magnesium 2.0 Total Bilirubin < 0.2 L ALT 16 Alkaline Phosphatase 120 H Total Protein 6.7 Albumin 3.7 Globulin 3.0 Albumin/Globulin Ratio 1.2 Triglycerides 233 H Cholesterol 146 LDL Cholesterol, Calc 81 HDL Cholesterol 18 L Cholesterol/HDL Ratio 8.1 H ABG Interpretation ABG results: 11/17/24 11/17/24 11/17/24 14:05 15:48 19:12 ABG pH 7.39 7.47 H 7.44 ABG pCO2 75 H* 61 H D 64 H ABG pO2 166 H 61 L D 73 L ABG HCO3 45 H 44 H 43 H ABG O2 Saturation 100 H 92 95 ABG Base Excess 16 H 18 H 16 H 11/18/24 11/18/24 11/18/24 04:57 16:10 20:10 ABG pH 7.45 7.42 Cancelled ABG pCO2 61 H 62 H Cancelled ABG pO2 100 D 114 H Cancelled ABG HCO3 42 H 39 H Cancelled ABG O2 Saturation 98 99 H Cancelled ABG Base Excess 16 H 13 H Cancelled 11/19/24 04:28 ABG pH 7.43 ABG pCO2 59 H ABG pO2 101 ABG HCO3 39 H ABG O2 Saturation 99 H ABG Base Excess 13 H Quality Measures Quality Measures sepsis Current suspected stage: ruled out Possible source: pulmonary and genitourinary Blood cultures ordered: yes Antibiotic ordered: Yes Assessment & Plan Assessment Current Active Medications: Generic Name Dose Route Start Last Admin Trade Name Freq PRN Reason Stop Dose Admin Acetaminophen 650 mg 11/18/24 07:34 Acetaminophen Nicolette 325 Mg/10 Ml Udc GT 12/18/24 07:33 Q4HR PRN Pain Or Fever > 100.3 Protocol Balsam [place] Oil 0 gm 11/18/24 21:00 11/19/24 20:14 Balsam [place] Oil (Venelex) 60 Gm Tube TOP 12/18/24 20:59 1 appln BID MCKENZIE Administration Bisacodyl 10 mg 11/18/24 15:21 Bisacodyl 10 Mg Supp NE 12/18/24 15:20 Q72H PRN constipation Protocol Dextrose 50 ml 11/17/24 18:25 Dextrose 50%-Water Inj 50 Ml Syringe IV 12/17/24 18:24 Q15MIN PRN BG <50 OR BG <70 & pt unresponsive Enoxaparin Sodium 40 mg 11/17/24 17:15 11/19/24 08:36 Enoxaparin Sod Inj 40 Mg/0.4 Ml Syringe SC 12/01/24 17:14 40 mg QDAY MCKENZIE Administration Fluconazole 200 mg 11/17/24 17:15 11/19/24 09:10 Fluconazole Susp 40 Mg/Ml Ml GT 11/24/24 17:14 200 mg QDAY MCKENZIE Administration Glucagon 1 mg 11/17/24 18:25 Glucagon Inj 1 Mg Vial IM Q15MIN PRN BG <70, and no IV access Propofol 1,000 mg in 100 mls @ 1.877 mls/hr 11/17/24 19:12 11/18/24 10:20 Diprivan Ivpb IV 12/17/24 13:53 0 mcg/kg/min .Q24H PRN 0 mls/hr PER PROTOCOL Titration Protocol 5 MCG/KG/MIN Ceftriaxone Sodium/Dextrose 1 gm in 50 mls @ 100 mls/hr 11/19/24 09:17 11/19/24 10:18 Rocephin/D5w 1gm Iv Premix IV 11/26/24 09:16 Infused QDAY MCKENZIE Infusion Dextrose 1,000 mls @ 75 mls/hr 11/20/24 01:00 11/20/24 00:55 D5w IV 12/20/24 00:59 75 mls/hr .[id number] MCKENZIE Administration Insulin Human Lispro 0 unit 11/17/24 18:30 11/20/24 05:09 Insulin Lispro (Admelog) 1 Unit/0.01 Ml Unit SC 12/17/24 18:29 Not Given Q6HR MCKNEZIE Protocol Lactulose 10 gm 11/20/24 09:00 Lactulose Syrup 20 Gm/30 Ml Udc GT 12/20/24 08:59 DAILY MCKENZIE Protocol Morphine Sulfate 4 mg 11/18/24 15:29 Morphine Sulf Liqd 10 Mg/5 Ml Udc GT 11/23/24 15:28 Q2H PRN pain (scale score 7-10) Morphine Sulfate 1 mg 11/18/24 15:29 11/19/24 08:36 Morphine Sulf Liqd 10 Mg/5 Ml Udc GT 11/23/24 15:28 1 mg Q2H PRN Administration pain (scale score 1-3) Protocol Morphine Sulfate 2 mg 11/18/24 15:25 Morphine Sulf Liqd 10 Mg/5 Ml Udc GT 11/23/24 15:24 Q2H PRN pain (scale score 4-6) Pantoprazole Sodium 40 mg 11/17/24 17:15 11/19/24 08:35 Pantoprazole Inj 40 Mg Vial IVP 12/17/24 17:14 40 mg QDAY MCKENZIE Administration Sodium Chloride 3 ml 11/17/24 13:33 11/17/24 14:48 Sodium Chloride Rt Nicolette 0.9% 3 Ml Nebu INH 12/17/24 13:32 3 ml PRN PRN Administration SOLN Plan This is a 54 year-old male with PMHx quadriplegia, chronic respiratory failure on 3L home oxygen, disseminated cocci with cocci menigitis, HTN, HLD, T2DM, hydrocephalus s/p RAC SPECIALIST shunt and PEG tube presented from [facility] on 11/17/24 with fever, hypoxia and diaphoresis, requiring intubation in ICU for suspected aspiration PNA. Extubated on 11/19/2024, currently on 5L NC. Acute on chronic respiratory failure S/p Intubation in ICU Likely aspiration pneumonia Chronic respiratory acidosis Chronic disseminated Coccidiomycosis UTI Was septic on admission, with tachycardia, fever, tachypnea, and mild leukocytosis. Admission UA was +LE, RBC 28, WBC 16, 1+ protein; CXR showed left lung PNA. Cultures have been negative. Responded well to fluids and ANTIBIOTICS. Received 1 day of VANCOMYCIN. Currently afebrile, no leukocytosis. No new culture 48H blood culture negative. ? Continue CEFTRIAXONE (11/19 to present) ? Continue AZITHROMYCIN 500 mg (11/18 to 11/19) ? Continue FLUCONAZOLE 400 mg GT BID (previous on 200 mg daily, incorrect dose) ? Monitoring pancultures Hypoosmotic hypernatremia Likely poor oral hydration. Sodium 164, admission, currently 155, on free water flushes. Free-water deficits of 1.8L. ? Continue sodium checks q.4h. ? Continue D5W at 75 cc/H ? Continue fluid flushes 250 cc Q6H Sinus Tachycardia (imporving) Likely reactive, no chest pain or sob. Trop negative. EKG sinus with short NE interval, LVH, no acute ST depression. HTN HLD BP relatively stable. TG 233, cholesterol 146, LDL 81, HDL 18 ASCVD 16.7% 10-year CVD risk. ? Started ATROVASTATIN 40 mg HS ? Recommended patient fish oil supplements on discharge. ? Repeat lipid panel in 6 months. Electrolyte abnormalities Phos low, repleted ? Daily labs ? Replete as needed Normocytic anemia Iron deficiency vs. anemia of chronic disease Hgb 11.8 > 9.0. No obvious source bleed. Coag panel normal. Likely chronic with dilutional component. Low reticulocytes count, like production deficiency Iron 52, tibc 230, iron sat 22, unsat iron 178. Normal folate/B12. ? Pending FOBT ? Iron supplement on discharge, after infection resolves. T2DM GLUCOSE control, no A1c on record. ? INSULIN sliding scale ? Accu-Cheks Quadriplegia Hx hydrocephalus S/p RAC SPECIALIST shunt S/p PEG tube Chronic subdural hygroma ? Continue with tube feed, registered dietitian following. ? On JEVITY, managed by registered dietitian. ? Patient recommendations from registered dietitian. Gluteal Ulcers Rx: Wound care referral. wound care as per wound care nurse 1) Stage 3 to sacrum, right thigh and right hip. Abrasions to bilateral knees: cleanse with wound cleanser, pat dry, apply Venelex ointment and cover with allyven dressing BID/PRN for soiling. 2) Healing trach stoma and gtube hypergranulation: cleanse with wound cleanser, pat dry, apply split gauze dressing as needed for soiling or bleeding. 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 Per ICU team, he is more alert today, and this seems to be his baseline. Health maintenance Diet: PEG tube GI prophylaxis: PROTONIX DVT prophylaxis: LOVENOX Antibiotics: CTX, AZITHORMYCIN CODE STATUS: FULL CODE Disposition: Treating PNA. Case was discussed with attending physician and senior resident. Zahra Garber DO PGYI Attending Provider Attestation/Addendum Kendra Lima DO, attest that I was physically present for the edwards portions of the service and evaluated the patient with the resident and I reviewed and discussed the case with the resident and agree with the resident's findings and plans of care as documented above Patient seen and evaluated this AM. He remains confused and states that he had left [place] and hopped over to [place] . Per speech therapist, patient is able to carry out conversations at baseline. He had recently had his tracheostomy removed in late October and had been doing well with [place] valve. There had been no episodes of aspirations when patient had speaking valve in place. Will keep patient NPO at this time as he remains confused. Will strictly use PEG tube at this time. SOdium remains elevated with 1.8L water deficit. Will continue wtih D5w at 75mL/hr and Free water flushes of 250mL q6hr.Will continue to trend sodium.
[2024-11-20 07:29] LABS: Sodium 152 mMol/L (136-145)
[2024-11-20 08:05] LABS: Iron 52 mcg/dL (65-175); Percent Iron Saturation 22 % (20-55); Total Iron Binding Capacity 230 mcg/dL (250-425); Unsaturated Iron Binding 178 (225-295)
[2024-11-20 08:26] LABS: Folate 18.35 ng/mL (>5.38); Vitamin B12 714 pg/mL (211-911)
[2024-11-20] MEDS: cefTRIAXone/D5w 1gm IV premix 1 GM/50 ML BAG IV (09:21)
[2024-11-20] MEDS: POTASSIUM PHOS 22.5 MMOL in SODIUM CHLORIDE 0.9% 500 ML 500 ML 82.778 MMOL IV (09:21)
[2024-11-20] MEDS: FLUCONAZOLE SUSP 40 MG/ML ML 200 MG GT (09:21)
[2024-11-20] MEDS: PANTOPRAZOLE INJ 40 MG VIAL IVP (09:22)
[2024-11-20] MEDS: BALSAM PERU/CASTOR OIL (Venelex) 60 GM TUBE TOP ×2 (09:22→20:03)
[2024-11-20] MEDS: ENOXAPARIN SOD INJ 40 MG/0.4 ML SYRINGE SC (09:22)
[2024-11-20] MEDS: LACTULOSE SYRUP 20 GM/30 ML UDC 10 GM GT (09:22)
[2024-11-20 15:50] LABS: Sodium 150 mMol/L (136-145)
[2024-11-20] MEDS: INSULIN LISPRO (AdmeLOG) 1 UNIT/0.01 ML UNIT SC (18:04)
[2024-11-20 19:00] LABS: OBS Card Expiration Date 2026-09; OBS Card Lot # 23001; OBS Developer Expiration Date 2026-09; OBS Developer Lot # 75023; OBS Performed By loped2; OBS QC OK? Yes; Occult Blood, Stool Negative (Negative)
[2024-11-20 19:11] LABS: Sodium 149 mMol/L (136-145)
[2024-11-20] MEDS: FLUCONAZOLE SUSP 40 MG/ML ML 400 MG GT (20:02)
[2024-11-20] MEDS: ATORVASTATIN CALCIUM 20 MG TABLET 40 MG PO (20:02)
[2024-11-20 23:52] LABS: Sodium 149 mMol/L (136-145)
[2024-11-21] VITALS (9 sets, daily range): BP systolic 125–152; BP diastolic 75–92; PULSE 96–110; RESP 23–30; TEMP 36.3–36.9; O2SAT 99–100; BMI 19.4
[2024-11-21 03:31] LABS: Basophils % (Auto) 0 % (0-2.5); Eosinophils # (Auto) 0.3 Thou/mm3 (0.0-0.5); Eosinophils % (Auto) 4 % (0-10); Hematocrit 28.6 % (41.0-53.0); Hemoglobin 8.9 g/dL (13.5-16.0); Immature Granulocytes % (Auto) 1 % (0-0); Immature Granulocytes Auto 0.03 Thou/mm3 (0.00-0.00); Lymphocytes # (Auto) 1.8 Thou/mm3 (1.0-4.8); Lymphocytes % (Auto) 28 % (10-50); Mean Corpuscular HGB Conc 31.1 g/dl (31.0-37.0); Mean Corpuscular Hemoglobin 25.9 pg (25.0-35.0); Mean Corpuscular Volume 83 fL (80-100); Monocytes # (Auto) 0.4 Thou/mm3 (0.0-0.8); Monocytes % (Auto) 6 % (0-12); Neutrophils # (Auto) 3.8 Thou/mm3 (1.8-7.7); Neutrophils % (Auto) 61 % (37-80); Nucleated Red Blood Cell % 0 /100 WBC (0); Platelet Count 277 Thou/mm3 (140-440); RDW Standard Deviation 51.6 fL (35.1-43.9); Red Blood Count 3.43 Miln/mm3 (4.50-5.90); White Blood Count 6.3 Thou/mm3 (3.8-10.6)
[2024-11-21 03:59] LABS: Alanine Aminotransferase 11 U/L (10-49); Albumin, Serum 3.5 gm/dL (3.5-5.0); Albumin/Globulin Ratio 1.2 (1.2-2.2); Alkaline Phosphatase 117 U/L (46-116); Anion Gap 7 (7-16); Aspartate Amino Transferase 12 U/L (0-34); BUN/Creatinine Ratio 20 Ratio (12-20); Bilirubin,Total < 0.2 mg/dL (0.3-1.2); Blood Urea Nitrogen 8 mg/dL (9-23); Calcium 8.4 mg/dL (8.3-10.6); Calcium (Corrected) 8.8 mg/dL (8.5-10.1); Carbon Dioxide 31.6 mMol/L (20.0-31.0); Chloride 109 mMol/L (98-107); Creatinine (Component) 0.4 mg/dL (0.6-1.3); Estimated Creatinine Clearance 183.3 mL/min (>60); Glucose 151 mg/dL (74-106); Magnesium 1.7 mg/dL (1.6-2.6); Osmolality,Calculated 295 (275-295); Phosphorous 2.8 mg/dL (2.4-5.1); Potassium 3.2 mMol/L (3.4-5.1); Sodium 148 mMol/L (136-145); Total Protein 6.5 gm/dL (5.7-8.2); eGFR > 60 See Note
[2024-11-21] MEDS: DEXTROSE 5%-WATER 1,000 ML 75 ML IV ×2 (05:00→17:49)
[2024-11-21] MEDS: LACTULOSE SYRUP 20 GM/30 ML UDC 10 GM GT (08:54)
[2024-11-21] MEDS: POTASSIUM CHLORIDE 10% 20 MEQ/15 ML UDC 40 MEQ GT (08:55)
[2024-11-21] MEDS: ENOXAPARIN SOD INJ 40 MG/0.4 ML SYRINGE SC (08:55)
[2024-11-21] MEDS: LANSOPRAZOLE 30 MG TAB.RAP.DR GT (08:55)
[2024-11-21] MEDS: cefTRIAXone/D5w 1gm IV premix 1 GM/50 ML BAG IV (08:56)
[2024-11-21] MEDS: Magnesium Sulfate 4 GM Ivpb 4 GM/50 ML BAG IV (08:56)
[2024-11-21] MEDS: FLUCONAZOLE SUSP 40 MG/ML ML 400 MG GT ×2 (09:02→20:44)
[2024-11-21] MEDS: BALSAM PERU/CASTOR OIL (Venelex) 60 GM TUBE TOP ×2 (09:02→20:14)
[2024-11-21 12:54] LABS: Sodium 149 mMol/L (136-145)
--- NOTE | 2024-11-21 16:18 | ESPR_ITS ---
<Statement entered by Campbell Gomez MD - 11/22/24 14:15> I discussed with and supervised the restaurant management internship physician involved in the care of this patient. Patient assessment and plan was discussed with entire medicine team, including my attending. I agree with the assessment and plan as documented by restaurant management internship doctor. Patient care was discussed with my attending physician Dr. Paolo Gomez, PGY-2 Documentation for date of: 11/21/24 Subjective Subjective Interval history: Patient was seen and examined by the bedside. No acute overnight events. PAtient is saturating well on 3L NC. Alert, reports that he's in [place], reports that the current month is December. Called [facility] transitional, according to the personnel, he is usually soft-spoken and answers with yes/no. Repeat sodium was 149, calculated water deficit was 1.0. Will continue with free water flushes and q4h sodium checks. Anticipate discharge in 24 hours. Exam Vital Signs Temp Pulse Resp BP Pulse Ox O2 Del Method O2 Flow Rate 98.1 F 103 H 30 H 139/92 H 99 Oxy Mask 3 11/21/24 12:00 11/21/24 12:00 11/21/24 12:00 11/21/24 12:00 11/21/24 12:00 11/21/24 12:00 11/21/24 12:00 FiO2 30 11/19/24 07:15 Narrative Exam Gen: Thin male. Alert. HEENT: NCAT, PERRLA, EOMI, MMM, anicteric conjunctivae. CVS: normal S1 and S2. RRR. No M/R/G. Resp: CTA B/L. No rhonchi, rales, crackles or wheezing. Abd: soft, non-tender, non-distended. BS+ in all 4 quadrants. PEG tube in-situ. MSK: Good ROM in BUE & BLE. No edema or rash. Neuro: Alert, moves all 4 extemities. Psych: appropriate mood and affect. Objective Labs 11/22/24 05:02 11/22/24 15:46 Labs: Laboratory Results - last 24 hr 11/20/24 11/20/24 11/20/24 18:30 18:35 22:33 WBC RBC Hgb Hct MCV MCH MCHC RDW Std Deviation Plt Count Neut % (Auto) Lymph % (Auto) [place] % (Auto) Eos % (Auto) Baso % (Auto) Neut # (Auto) Lymph # (Auto) [place] # (Auto) Eos # (Auto) Baso # (Auto) Immature Gran # (Auto) Absolute Nucleated RBC Immature Gran % Nucleated RBC % Sodium 149 H 149 H Potassium Chloride Carbon Dioxide Anion Gap BUN Creatinine Estim Creat Clear Calc eGFR BUN/Creatinine Ratio Glucose Calculated Osmolality Calcium Corrected Calcium Phosphorus Magnesium Total Bilirubin AST ALT Alkaline Phosphatase Total Protein Albumin Globulin Albumin/Globulin Ratio Stool Occult Blood Negative 11/21/24 11/21/24 03:22 12:30 WBC 6.3 RBC 3.43 L Hgb 8.9 L Hct 28.6 L MCV 83 MCH 25.9 MCHC 31.1 RDW Std Deviation 51.6 H Plt Count 277 Neut % (Auto) 61 Lymph % (Auto) 28 [place] % (Auto) 6 Eos % (Auto) 4 Baso % (Auto) 0 Neut # (Auto) 3.8 Lymph # (Auto) 1.8 [place] # (Auto) 0.4 Eos # (Auto) 0.3 Baso # (Auto) 0.0 Immature Gran # (Auto) 0.03 H Absolute Nucleated RBC 0.00 Immature Gran % 1 H Nucleated RBC % 0 Sodium 148 H 149 H Potassium 3.2 L Chloride 109 H Carbon Dioxide 31.6 H Anion Gap 7 BUN 8 L Creatinine 0.4 L Estim Creat Clear Calc 183.3 eGFR > 60 BUN/Creatinine Ratio 20 Glucose 151 H Calculated Osmolality 295 Calcium 8.4 Corrected Calcium 8.8 Phosphorus 2.8 Magnesium 1.7 Total Bilirubin < 0.2 L AST 12 ALT 11 Alkaline Phosphatase 117 H Total Protein 6.5 Albumin 3.5 Globulin 3.0 Albumin/Globulin Ratio 1.2 Stool Occult Blood ABG Interpretation ABG results: 11/17/24 11/17/24 11/17/24 14:05 15:48 19:12 ABG pH 7.39 7.47 H 7.44 ABG pCO2 75 H* 61 H D 64 H ABG pO2 166 H 61 L D 73 L ABG HCO3 45 H 44 H 43 H ABG O2 Saturation 100 H 92 95 ABG Base Excess 16 H 18 H 16 H 11/18/24 11/18/24 11/18/24 04:57 16:10 20:10 ABG pH 7.45 7.42 Cancelled ABG pCO2 61 H 62 H Cancelled ABG pO2 100 D 114 H Cancelled ABG HCO3 42 H 39 H Cancelled ABG O2 Saturation 98 99 H Cancelled ABG Base Excess 16 H 13 H Cancelled 11/19/24 04:28 ABG pH 7.43 ABG pCO2 59 H ABG pO2 101 ABG HCO3 39 H ABG O2 Saturation 99 H ABG Base Excess 13 H Quality Measures Quality Measures sepsis Current suspected stage: ruled out Possible source: pulmonary and genitourinary Blood cultures ordered: yes Antibiotic ordered: Yes Assessment & Plan Assessment Current Active Medications: Generic Name Dose Route Start Last Admin Trade Name Freq PRN Reason Stop Dose Admin Acetaminophen 650 mg 11/18/24 07:34 Acetaminophen Nicolette 325 Mg/10 Ml Udc GT 12/18/24 07:33 Q4HR PRN Pain Or Fever > 100.3 Protocol Atorvastatin Calcium 40 mg 11/20/24 21:00 11/20/24 20:02 Atorvastatin Calcium 20 Mg Tablet PO 12/20/24 20:59 40 mg HS MCKENZIE Administration Balsam [place] Oil 0 gm 11/18/24 21:00 11/21/24 09:02 Balsam [place] Oil (Venelex) 60 Gm Tube TOP 12/18/24 20:59 1 appln BID MCKENZIE Administration Bisacodyl 10 mg 11/18/24 15:21 Bisacodyl 10 Mg Supp [place] 12/18/24 15:20 Q72H PRN constipation Protocol Dextrose 50 ml 11/17/24 18:25 Dextrose 50%-Water Inj 50 Ml Syringe IV 12/17/24 18:24 Q15MIN PRN BG <50 OR BG <70 & pt unresponsive Enoxaparin Sodium 40 mg 11/17/24 17:15 11/21/24 08:55 Enoxaparin Sod Inj 40 Mg/0.4 Ml Syringe SC 12/01/24 17:14 40 mg QDAY MCKENZIE Administration Fluconazole 400 mg 11/20/24 21:00 11/21/24 09:02 Fluconazole Susp 40 Mg/Ml Ml GT 11/27/24 20:59 400 mg BID MCKENZIE Administration Glucagon 1 mg 11/17/24 18:25 Glucagon Inj 1 Mg Vial IM Q15MIN PRN BG <70, and no IV access Ceftriaxone Sodium/Dextrose 1 gm in 50 mls @ 100 mls/hr 11/19/24 09:17 11/21/24 08:56 Rocephin/D5w 1gm Iv Premix IV 11/26/24 09:16 100 mls/hr QDAY MCKENZIE Administration Dextrose 1,000 mls @ 75 mls/hr 11/20/24 01:00 11/21/24 05:00 D5w IV 12/20/24 00:59 75 mls/hr .[id number] MCKENZIE Administration Insulin Human Lispro 0 unit 11/17/24 18:30 11/21/24 13:21 Insulin Lispro (Admelog) 1 Unit/0.01 Ml Unit SC 12/17/24 18:29 Not Given Q6HR MCKENZIE Protocol Lactulose 10 gm 11/20/24 09:00 11/21/24 08:54 Lactulose Syrup 20 Gm/30 Ml [facility] 12/20/24 08:59 10 gm DAILY MCKENZIE Administration Protocol Lansoprazole 30 mg 11/21/24 09:00 11/21/24 08:55 Lansoprazole 30 Mg Tab.Rap. GT 12/17/24 17:14 30 mg QDAY MCKENZIE Administration Morphine Sulfate 4 mg 11/18/24 15:29 Morphine Sulf Liqd 10 Mg/5 Ml [facility] 11/23/24 15:28 Q2H PRN pain (scale score 7-10) Morphine Sulfate 1 mg 11/18/24 15:29 11/19/24 08:36 Morphine Sulf Liqd 10 Mg/5 Ml [facility] 11/23/24 15:28 1 mg Q2H PRN Administration pain (scale score 1-3) Protocol Morphine Sulfate 2 mg 11/18/24 15:25 Morphine Sulf Liqd 10 Mg/5 Ml [facility] 11/23/24 15:24 Q2H PRN pain (scale score 4-6) Sodium Chloride 3 ml 11/17/24 13:33 11/17/24 14:48 Sodium Chloride Rt Nicolette 0.9% 3 Ml Nebu INH 12/17/24 13:32 3 ml PRN PRN Administration SOLN Plan This is a 54 year-old male with PMHx quadriplegia, chronic respiratory failure on 3L home oxygen, disseminated cocci with cocci menigitis, HTN, HLD, T2DM, hydrocephalus s/p ART SPECIALIST shunt and PEG tube presented [facility] with fever, hypoxia and diaphoresis, requiring intubation in ICU for suspected aspiration PNA. Extubated on 11/19/2024, currently on 5L NC. Acute on chronic respiratory failure S/p Intubation in ICU Likely aspiration pneumonia Chronic respiratory acidosis Chronic disseminated Coccidiomycosis UTI Was septic on admission, with tachycardia, fever, tachypnea, and mild leukocytosis. Admission UA was +LE, RBC 28, WBC 16, 1+ protein; CXR showed left lung PNA. Cultures have been negative. Responded well to fluids and ANTIBIOTICS. Received 1 day of VANCOMYCIN. Currently afebrile, no leukocytosis. No new culture 48H blood culture negative. ? Continue CEFTRIAXONE (11/19 to present) ? Continue AZITHROMYCIN 500 mg (11/18 to 11/19) ? Continue FLUCONAZOLE 400 mg GT BID (previous on 200 mg daily, incorrect dose) ? Urine, Et secretions, blood cultures negative Hypoosmotic hypernatremia Likely poor oral hydration. Sodium 164, admission, currently 155, on free water flushes. Free-water deficits of 1.8L. Increased free water flushes to 50 ml.hr. If sodium will not improve, will consider consulting nephrology. Plan: ? Continue sodium checks q.4h. ? Continue D5W at 75 cc/H ? Continue fluid flushes 50 ml/hr Sinus Tachycardia (imporving) Likely reactive, no chest pain or sob. Trop negative. EKG sinus with short [place] interval, LVH, no acute ST depression. HTN HLD BP relatively stable. TG 233, cholesterol 146, LDL 81, HDL 18 ASCVD 16.7% 10-year CVD risk. ? Started ATROVASTATIN 40 mg HS ? Recommended patient fish oil supplements on discharge. ? Repeat lipid panel in 6 months. Electrolyte abnormalities Phos low, repleted ? Daily labs ? Replete as needed Normocytic anemia Iron deficiency vs. anemia of chronic disease Hgb 11.8 > 9.0. No obvious source bleed. Coag panel normal. Likely chronic with dilutional component. Low reticulocytes count, like production deficiency Iron 52, tibc 230, iron sat 22, unsat iron 178. Normal folate/B12. ? Pending FOBT ? Iron supplement on discharge, after infection resolves. T2DM GLUCOSE control, no A1c on record. ? INSULIN sliding scale ? Accu-Cheks Quadriplegia Hx hydrocephalus S/p ART SPECIALIST shunt S/p PEG tube Chronic subdural hygroma ? Continue with tube feed, registered dietitian following. ? On JEVITY, managed by registered dietitian. ? Patient recommendations from registered dietitian. Gluteal Ulcers Rx: Wound care referral. wound care as per wound care nurse 1) Stage 3 to sacrum, right thigh and right hip. Abrasions to bilateral knees: cleanse with wound cleanser, pat dry, apply Venelex ointment and cover with allyven dressing BID/PRN for soiling. 2) Healing trach stoma and gtube hypergranulation: cleanse with wound cleanser, pat dry, apply split gauze dressing as needed for soiling or bleeding. 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 Per ICU team, he is more alert today, and this seems to be his baseline. Health maintenance Diet: PEG tube GI prophylaxis: PROTONIX DVT prophylaxis: LOVENOX Antibiotics: Ceftriaxone, AZITHORMYCIN CODE STATUS: FULL CODE Disposition: Treating PNA. Plan of care discussed with attending Dr. Boone, PGY-[address] Gomez. Jeimy Rutherford MD, PGY 1. Attending Provider Attestation/Addendum I attest that I was physically present for the evaluation, physical examination, lab and imaging review of the patient with the residents. I discussed the case with the residents and agree with the findings and plans of care as documented above. At bedside today, patient appears comfortable. Continues to talk nonsensical. Continues to have hypernatremia, 149 this afternoon. We will continue with D5W at 75 cc/h, added free water flushes at 60 cc/h. We will continue to monitor sodium level closely. Deedee Boone MD
[2024-11-21 16:19] LABS: Sodium 147 mMol/L (136-145)
[2024-11-21] MEDS: ATORVASTATIN CALCIUM 20 MG TABLET 40 MG PO (20:14)
[2024-11-22] VITALS (9 sets, daily range): BP systolic 115–151; BP diastolic 83–97; PULSE 103–115; RESP 20–99; TEMP 36.5–37.1; O2SAT 98–100; BMI 19.2
[2024-11-22] MEDS: DEXTROSE 5%-WATER 1,000 ML 75 ML IV ×2 (06:17→21:04)
[2024-11-22 06:33] LABS: Alanine Aminotransferase 10 U/L (10-49); Albumin, Serum 3.7 gm/dL (3.5-5.0); Anion Gap 11 (7-16); Aspartate Amino Transferase 11 U/L (0-34); BUN/Creatinine Ratio 15 Ratio (12-20); Bilirubin,Total < 0.2 mg/dL (0.3-1.2); Blood Urea Nitrogen 6 mg/dL (9-23); Calcium 8.4 mg/dL (8.3-10.6); Calcium (Corrected) 8.6 mg/dL (8.5-10.1); Chloride 107 mMol/L (98-107); Creatinine (Component) 0.4 mg/dL (0.6-1.3); Estimated Creatinine Clearance 180.1 mL/min (>60); Globulin 3.2 gm/dL (2.3-3.5); Glucose 119 mg/dL (74-106); Osmolality,Calculated 291 (275-295); Phosphorous 1.8 mg/dL (2.4-5.1); Potassium 3.5 mMol/L (3.4-5.1); Sodium 147 mMol/L (136-145); Total Protein 6.9 gm/dL (5.7-8.2); eGFR > 60 See Note
[2024-11-22 06:34] LABS: Albumin/Globulin Ratio 1.2 (1.2-2.2); Alkaline Phosphatase 121 U/L (46-116)
[2024-11-22 07:38] LABS: Basophils % (Auto) 0 % (0-2.5); Eosinophils # (Auto) 0.3 Thou/mm3 (0.0-0.5); Eosinophils % (Auto) 5 % (0-10); Hematocrit 29.8 % (41.0-53.0); Hemoglobin 9.6 g/dL (13.5-16.0); Immature Granulocytes % (Auto) 1 % (0-0); Immature Granulocytes Auto 0.04 Thou/mm3 (0.00-0.00); Lymphocytes # (Auto) 2.2 Thou/mm3 (1.0-4.8); Lymphocytes % (Auto) 33 % (10-50); Mean Corpuscular HGB Conc 32.2 g/dl (31.0-37.0); Mean Corpuscular Hemoglobin 25.9 pg (25.0-35.0); Mean Corpuscular Volume 81 fL (80-100); Monocytes # (Auto) 0.5 Thou/mm3 (0.0-0.8); Monocytes % (Auto) 8 % (0-12); Neutrophils # (Auto) 3.6 Thou/mm3 (1.8-7.7); Neutrophils % (Auto) 54 % (37-80); Nucleated Red Blood Cell % 0 /100 WBC (0); Platelet Count 320 Thou/mm3 (140-440); RDW Standard Deviation 49.1 fL (35.1-43.9); White Blood Count 6.7 Thou/mm3 (3.8-10.6)
[2024-11-22] MEDS: POTASSIUM CHLORIDE 10% 20 MEQ/15 ML UDC 40 MEQ GT (07:57)
[2024-11-22] MEDS: cefTRIAXone/D5w 1gm IV premix 1 GM/50 ML BAG IV (08:00)
[2024-11-22] MEDS: FLUCONAZOLE SUSP 40 MG/ML ML 400 MG GT ×2 (08:00→21:05)
[2024-11-22] MEDS: ENOXAPARIN SOD INJ 40 MG/0.4 ML SYRINGE SC (08:00)
[2024-11-22] MEDS: LACTULOSE SYRUP 20 GM/30 ML UDC 10 GM GT (08:00)
[2024-11-22] MEDS: BALSAM PERU/CASTOR OIL (Venelex) 60 GM TUBE TOP ×2 (08:01→21:06)
[2024-11-22] MEDS: LANSOPRAZOLE 30 MG TAB.RAP.DR GT (08:02)
[2024-11-22] MEDS: NAPH,KPH MBDB 1 PACKET (1.5 GM) GT (08:08)
--- NOTE | 2024-11-22 10:01 | ESPR_ITS ---
<Statement entered by Campbell Gomez MD - 11/22/24 16:17> Patient continues to be hypernatremic despite D5W and water flushes. Given history of IMAGERY ANALYST shunt, possible DI, will consult nephrology. I discussed with and supervised the internet merchant physician involved in the care of this patient. Patient assessment and plan was discussed with entire medicine team, including my attending. I agree with the assessment and plan as documented by internet merchant doctor. Patient care was discussed with my attending physician Dr. Paolo Gomez, PGY-2 Documentation for date of: 11/22/24 Subjective Subjective Interval history: Patient was seen and examined by the bedside. No acute overnight events. Patient is more alert today, conversational, answers question, but still confused. Na continues to be mildly elevate 147, despite free water flushes and D5W. Ordered repeat UA, urine electrolytes. Consulted nephrology. Exam Vital Signs Temp Pulse Resp BP Pulse Ox O2 Del Method O2 Flow Rate 98.7 F 103 H 37 H 115/83 99 Oxy Mask 0.5 11/22/24 08:00 11/22/24 08:00 11/22/24 08:00 11/22/24 08:00 11/22/24 08:00 11/22/24 08:00 11/22/24 08:00 FiO2 30 11/22/24 08:00 Narrative Exam Gen: Thin male. Alert, conversational. HEENT: NCAT, PERRLA, EOMI, MMM, anicteric conjunctivae. CVS: normal S1 and S2. RRR. No M/R/G. Resp: CTA B/L. No rhonchi, rales, crackles or wheezing. Abd: soft, non-tender, non-distended. BS+ in all 4 quadrants. PEG tube in-situ. MSK: Good ROM in BUE & BLE. No edema or rash. Neuro: Alert, moves all 4 extemities. Psych: appropriate mood and affect. Objective Labs 11/22/24 05:02 11/22/24 15:46 Labs: Laboratory Results - last 24 hr 11/21/24 11/21/24 11/22/24 12:30 16:02 05:02 WBC 6.7 RBC 3.70 L Hgb 9.6 L Hct 29.8 L MCV 81 MCH 25.9 MCHC 32.2 RDW Std Deviation 49.1 H Plt Count 320 D Neut % (Auto) 54 Lymph % (Auto) 33 Island % (Auto) 8 Eos % (Auto) 5 Baso % (Auto) 0 Neut # (Auto) 3.6 Lymph # (Auto) 2.2 Island # (Auto) 0.5 Eos # (Auto) 0.3 Baso # (Auto) 0.0 Immature Gran # (Auto) 0.04 H Absolute Nucleated RBC 0.00 Immature Gran % 1 H Nucleated RBC % 0 Sodium 149 H 147 H 147 H Potassium 3.5 Chloride 107 Carbon Dioxide 29.0 Anion Gap 11 BUN 6 L Creatinine 0.4 L Estim Creat Clear Calc 180.1 eGFR > 60 BUN/Creatinine Ratio 15 Glucose 119 H Calculated Osmolality 291 Calcium 8.4 Corrected Calcium 8.6 Phosphorus 1.8 L Magnesium 2.0 Total Bilirubin < 0.2 L AST 11 ALT 10 Alkaline Phosphatase 121 H Total Protein 6.9 Albumin 3.7 Globulin 3.2 Albumin/Globulin Ratio 1.2 ABG Interpretation ABG results: 11/17/24 11/17/24 11/17/24 14:05 15:48 19:12 ABG pH 7.39 7.47 H 7.44 ABG pCO2 75 H* 61 H D 64 H ABG pO2 166 H 61 L D 73 L ABG HCO3 45 H 44 H 43 H ABG O2 Saturation 100 H 92 95 ABG Base Excess 16 H 18 H 16 H 11/18/24 11/18/24 11/18/24 04:57 16:10 20:10 ABG pH 7.45 7.42 Cancelled ABG pCO2 61 H 62 H Cancelled ABG pO2 100 D 114 H Cancelled ABG HCO3 42 H 39 H Cancelled ABG O2 Saturation 98 99 H Cancelled ABG Base Excess 16 H 13 H Cancelled 11/19/24 04:28 ABG pH 7.43 ABG pCO2 59 H ABG pO2 101 ABG HCO3 39 H ABG O2 Saturation 99 H ABG Base Excess 13 H Quality Measures Quality Measures sepsis Current suspected stage: ruled out Possible source: pulmonary and genitourinary Blood cultures ordered: yes Antibiotic ordered: No Assessment & Plan Assessment Current Active Medications: Generic Name Dose Route Start Last Admin Trade Name Freq PRN Reason Stop Dose Admin Acetaminophen 650 mg 11/18/24 07:34 Acetaminophen Nicolette 325 Mg/10 Ml Udc GT 12/18/24 07:33 Q4HR PRN Pain Or Fever > 100.3 Protocol Atorvastatin Calcium 40 mg 11/20/24 21:00 11/21/24 20:14 Atorvastatin Calcium 20 Mg Tablet PO 12/20/24 20:59 40 mg HS MCKENZIE Administration Balsam [place] Oil 0 gm 11/18/24 21:00 11/22/24 08:01 Balsam [place] Oil (Venelex) 60 Gm Tube TOP 12/18/24 20:59 1 appln BID MCKENZIE Administration Bisacodyl 10 mg 11/18/24 15:21 Bisacodyl 10 Mg Supp ID 12/18/24 15:20 Q72H PRN constipation Protocol Dextrose 50 ml 11/17/24 18:25 Dextrose 50%-Water Inj 50 Ml Syringe IV 12/17/24 18:24 Q15MIN PRN BG <50 OR BG <70 & pt unresponsive Enoxaparin Sodium 40 mg 11/17/24 17:15 11/22/24 08:00 Enoxaparin Sod Inj 40 Mg/0.4 Ml Syringe SC 12/01/24 17:14 40 mg QDAY MCKENZIE Administration Fluconazole 400 mg 11/20/24 21:00 11/22/24 08:00 Fluconazole Susp 40 Mg/Ml Ml GT 11/27/24 20:59 400 mg BID MCKENZIE Administration Glucagon 1 mg 11/17/24 18:25 Glucagon Inj 1 Mg Vial IM Q15MIN PRN BG <70, and no IV access Ceftriaxone Sodium/Dextrose 1 gm in 50 mls @ 100 mls/hr 11/19/24 09:17 11/22/24 08:00 Rocephin/D5w 1gm Iv Premix IV 11/26/24 09:16 100 mls/hr QDAY MCKENZIE Administration Dextrose 1,000 mls @ 75 mls/hr 11/20/24 01:00 11/22/24 06:17 D5w IV 12/20/24 00:59 75 mls/hr .[id number] MCKENZIE Administration Insulin Human Lispro 0 unit 11/17/24 18:30 11/22/24 05:04 Insulin Lispro (Admelog) 1 Unit/0.01 Ml Unit SC 12/17/24 18:29 Not Given Q6HR MCKENZIE Protocol Lactulose 10 gm 11/20/24 09:00 11/22/24 08:00 Lactulose Syrup 20 Gm/30 Ml [facility] 12/20/24 08:59 10 gm DAILY MCKENZIE Administration Protocol Lansoprazole 30 mg 11/21/24 09:00 11/22/24 08:02 Lansoprazole 30 Mg Tab. GT 12/17/24 17:14 30 mg QDAY MCKENZIE Administration Morphine Sulfate 4 mg 11/18/24 15:29 Morphine Sulf Liqd 10 Mg/5 Ml [facility] 11/23/24 15:28 Q2H PRN pain (scale score 7-10) Morphine Sulfate 1 mg 11/18/24 15:29 11/19/24 08:36 Morphine Sulf Liqd 10 Mg/5 Ml [facility] 11/23/24 15:28 1 mg Q2H PRN Administration pain (scale score 1-3) Protocol Morphine Sulfate 2 mg 11/18/24 15:25 Morphine Sulf Liqd 10 Mg/5 Ml [facility] 11/23/24 15:24 Q2H PRN pain (scale score 4-6) Sodium Chloride 3 ml 11/17/24 13:33 11/17/24 14:48 Sodium Chloride Rt Nicolette 0.9% 3 Ml Nebu INH 12/17/24 13:32 3 ml PRN PRN Administration SOLN Plan This is a 54 year-old male with PMHx quadriplegia, chronic respiratory failure on 3L home oxygen, disseminated cocci with cocci menigitis, HTN, HLD, T2DM, hydrocephalus s/p IMAGERY ANALYST shunt and PEG tube presented from [facility] on 11/17/24 with fever, hypoxia and diaphoresis, requiring intubation in ICU for suspected aspiration PNA. Extubated on 11/19/2024, currently on 5L NC. Acute on chronic respiratory failure S/p Intubation in ICU Likely aspiration pneumonia Chronic respiratory acidosis Chronic disseminated Coccidiomycosis UTI Was septic on admission, with tachycardia, fever, tachypnea, and mild leukocytosis. Admission UA was +LE, RBC 28, WBC 16, 1+ protein; CXR showed left lung PNA. Cultures have been negative. Responded well to fluids and ANTIBIOTICS. Received 1 day of VANCOMYCIN. Currently afebrile, no leukocytosis. No new culture 48H blood culture negative. ? Continue CEFTRIAXONE (11/19 to present) ? Continue AZITHROMYCIN 500 mg (11/18 to 11/19) ? Continue FLUCONAZOLE 400 mg GT BID (previous on 200 mg daily, incorrect dose) ? Urine, Et secretions, blood cultures negative Hypoosmotic hypernatremia Suspected diabetes insipidus Patient continues to be hypernatremic with high urine output. 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 Sodium 164, admission, currently 155, on free water flushes. Free-water deficits of 1.8L. Increased free water flushes to 50 ml/hr. Plan: ? Continue sodium checks q.4h. ? Continue D5W at 75 cc/H ? Continue fluid flushes 50 ml/hr - consulted nephrology - UA, urine elctrolytes ordered - will try desmopressin - I's and O's Sinus Tachycardia (imporving) Likely reactive, no chest pain or sob. Trop negative. EKG sinus with short ID interval, LVH, no acute ST depression. HTN HLD BP relatively stable. TG 233, cholesterol 146, LDL 81, HDL 18 ASCVD 16.7% 10-year CVD risk. ? Started ATROVASTATIN 40 mg HS ? Recommended patient fish oil supplements on discharge. ? Repeat lipid panel in 6 months. Electrolyte abnormalities Phos low, repleted ? Daily labs ? Replete as needed Normocytic anemia Iron deficiency vs. anemia of chronic disease Hgb 11.8 > 9.0. No obvious source bleed. Coag panel normal. Likely chronic with dilutional component. Low reticulocytes count, like production deficiency Iron 52, tibc 230, iron sat 22, unsat iron 178. Normal folate/B12. ? Pending FOBT ? Iron supplement on discharge, after infection resolves. T2DM GLUCOSE control, no A1c on record. ? INSULIN sliding scale ? Accu-Cheks Quadriplegia Hx hydrocephalus S/p IMAGERY ANALYST shunt S/p PEG tube Chronic subdural hygroma ? Continue with tube feed, registered dietitian following. ? On JEVITY, managed by registered dietitian. ? Patient recommendations from registered dietitian. Gluteal Ulcers Rx: Wound care referral. wound care as per wound care nurse 1) Stage 3 to sacrum, right thigh and right hip. Abrasions to bilateral knees: cleanse with wound cleanser, pat dry, apply Venelex ointment and cover with allyven dressing BID/PRN for soiling. 2) Healing trach stoma and gtube hypergranulation: cleanse with wound cleanser, pat dry, apply split gauze dressing as needed for soiling or bleeding. 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 Per ICU team, he is more alert today, and this seems to be his baseline. Health maintenance Diet: PEG tube GI prophylaxis: PROTONIX DVT prophylaxis: LOVENOX Antibiotics: Ceftriaxone, AZITHORMYCIN CODE STATUS: FULL CODE Disposition: Treating PNA. Plan of care discussed with attending Dr. Boone, PGY-[address] Gomez. Jeimy Rutherford MD, PGY 1. Attending Provider Attestation/Addendum I attest that I was physically present for the evaluation, physical examination, lab and imaging review of the patient with the residents. I discussed the case with the residents and agree with the findings and plans of care as documented above. At bedside today, patient appears more alert but continues to be confused. Saturating well on room air. Noted to have slight improvement in sodium, 147 this morning. Patient has 4900 cc of urine output in last 24 hours, also has been on D5W and free water flushes. Given hypotonic amount of fluid and very slow improvement in sodium, concern for diabetes insipidus is high, we will obtain another urinalysis and urine electrolytes and we will also obtain nephrology consult. We will also monitor closely with frequent renal panel. Deedee Boone MD
[2024-11-22 10:07] LABS: Bilirubin,Urine Negative (Negative); Blood,Urine Trace (Negative); Clarity,Urine Clear (Clear/Hazy); Collection Type, Urine Clean Catch; Color,Urine Lt-Yellow (Lt Yel-Yel); Glucose, Urine Negative (Negative); Hyaline Casts,Urine < 1 /hpf (0-1); Ketones,Urine Negative (Negative); Leukocyte Esterase,Urine Negative (Negative); Nitrite,Urine Negative (Negative); PH,Urine 7.5 (5.0-7.0); Protein,Urine Negative (Neg - Trace); RBC,Urine 2 /hpf (0-3); Specific Gravity,Urine 1.007 (1.001-1.035); Squamous Epithelial Cell,Urine < 1 /hpf (0-5); Urobilinogen,Urine Negative mg/dL (0.0-1.0); WBC,Urine 1 /hpf (0-5)
[2024-11-22 10:09] LABS: Chloride,Urine Random 35.3 mMol/L (55.0-125.0); Potassium,Urine Random 23 mMol/L (12-62); Sodium,Urine Random 38.2 mMol/L (20.0-110.0)
--- NOTE | 2024-11-22 10:36 | PD.NEPHCONS ---
History of Present Illness Data of Consult Consult date: 11/22/24 Requesting Physician: Katia Prado MD Primary Care Provider: Georgia Crocker MD Consult Narrative Reason for consult: Hypernatremia History of present illness: Patient seems to be confused-chart review done and spoke to nurse Extensive medical history-Mr. Rod is a 54 year old gentleman who currently resides at [facility] presented to the emergency department with acute hypoxic respiratory failure was intubated and subsequently extubated and transferred to telemetry. He has past medical history significant for chronic respiratory failure on 3L O2 at baseline, quadriplegia, history of disseminated coccidiomycosis, primary hypertension, wbu-ipsudak-oklzpiyzl diabetes mellitus type 2, hyperlipidemia, hydrocephalus s/p EXTRACTOR MACHINE OPERATOR shunt and PEG tube Primary team noticed that despite giving free water flushes, D5W patient's sodium continues to be elevated and a nephrology consultation was requested. Patient currently seen in telemetry. He seems to be confused and quadriplegic in bed. Looks older than his stated age. Current medications included Tylenol, atorvastatin, ceftriaxone, Lovenox, lactulose, fluconazole, Prevacid. Upon review he has significant amount of urinary output for the last few days more than 3 L/day Hemoglobin 9.6, platelets 320, WBC 6.7. Sodium 147, potassium 3.5, creatinine 0.4, blood sugar 119, calcium 8.6, phosphorus 1.8, magnesium 2, LFTs normal, albumin 3.7 urinalysis showed specific gravity 1007 chest x-ray showed improvement in the left lung pneumonia. cc:: cc: Katia Prado MD Review of Systems Review of Systems Narrative Review of Systems: Limited due to his mentation. Patient seems to be confused. Denies any chest pain. Denies any nausea. Past Medical History Past Medical History NEUROLOGIC: Positive Neurological Disorders (Quadriplegia), Cerebrovascular Accident and Meningitis (coccidioidomucosis meningitis) CARDIAC: Positive Cardiac Disorders, Hypercholesterolemia and Hypertension; Negative Congestive Heart Failure RESPIRATORY: Positive Respiratory Disorders (respiratory failure, disseminated cocci); Negative Chronic Obstructive Pulmonary Disease (COPD) GASTROINTESTINAL: Positive Gastrointestinal Disorders (peg tube) and Gastroesophageal Reflux Disease GENITOURINARY: Negative Renal Disease ENDOCRINE: Positive Endocrine Disorders and Diabetes Mellitus Type 2; Negative Diabetes Mellitus Type 1 Surgical History SURGICAL: Positive Gastrostomy (PEG tube) and Brain Shunt (CSF drainage device) Social History SMOKING STATUS: Unknown if ever smoked Past Medical History Comments PMH COMMENT: Past medical history: Disseminated coccidiomycosis Hydrocephalus s/p EXTRACTOR MACHINE OPERATOR shunt Rep-wefjbih-xaoxsmtha diabetes mellitus type 2 Primary pretension Hyperlipidemia S/p PEG tube Chronic respiratory failure on 3L O2 at baseline Quadriplegia Medication list: Fluconazole 200 Mg GT daily Past surgical history: Unknown Allergies: NKFDA Social history: Patient is a resident at [facility]. At baseline his GCS is 12/15 [E4, V4,M4] Family History: Unobtainable Meds Home Medications and Allergies Home Medications ?Medication ?Instructions ?Recorded ?Confirmed ?Type bisacodyl 10 mg rectal suppository 10 mg MO Q72H PRN constipation 11/18/24 11/18/24 History bisacodyl 10 mg rectal suppository 10 mg MO QDAY PRN constipation 11/18/24 11/18/24 History (Dulcolax (bisacodyl)) lorazepam 0.5 mg tablet (Ativan) 0.5 mg PO Q6H PRN anxiety 11/18/24 11/18/24 History magnesium hydroxide 400 mg/5 mL 30 ml PO Q72H PRN constipation 11/18/24 11/18/24 History oral suspension (Milk of Magnesia) morphine 20 mg/5 mL (4 mg/mL) oral 1 mg PO Q2H PRN pain (scale score 11/18/24 11/18/24 History solution 1-3) morphine 20 mg/5 mL (4 mg/mL) oral 2 mg PO Q2H PRN pain (scale score 11/18/24 11/18/24 History solution 4-6) morphine 20 mg/5 mL (4 mg/mL) oral 4 mg PO Q2H PRN pain (scale score 11/18/24 11/18/24 History solution 7-10) sodium phosphates 19 gram-7 118 ml MO Q72H PRN constipation 11/18/24 11/18/24 History gram/118 mL enema (Fleet Enema) Allergies Allergy/AdvReac Type Severity Reaction Status Date / Time No Known Allergies Allergy Verified 11/17/24 22:32 Exam Vital Signs Temp Pulse Resp BP Pulse Ox O2 Del Method O2 Flow Rate 36.5 C 110 H 20 146/87 H 100 Oxy Mask 0.5 11/22/24 20:00 11/22/24 20:00 11/22/24 20:00 11/22/24 20:00 11/22/24 20:00 11/22/24 20:00 11/22/24 20:00 FiO2 30 11/22/24 20:00 Narrative Exam GENERAL APPEARANCE:. Currently in telemetry. Patient seems to have lost weight NECK: Neck supple, no JVD or bruit CARDIOVASCULAR: Heart regular, no murmurs LUNGS/CHEST: Chest clear to auscultation. No rales, rhonchi, wheezing ABDOMEN: Soft, nontender, nondistended. No masses. Normal bowel sounds. PEG tube EXTREMITIES: No edema, clubbing or cyanosis. SKIN: Skin exam normal without any rashes MUSCULOSKELETAL: Contractures with quadriplegia NEUROLOGICAL : confusion noted. Results Labs 11/23/24 05:07 11/23/24 05:07 Labs: Short CBC 11/22/24 Range/Units 05:02 WBC 6.7 (3.8-10.6) Thou/mm3 Hgb 9.6 L (13.5-16.0) g/dL Hct 29.8 L (41.0-53.0) % Plt Count 320 D (140-440) Thou/mm3 BMP 11/22/24 11/22/24 11/22/24 05:02 10:38 15:46 Sodium 147 H 127 L D 144 D Potassium 3.5 Chloride 107 Carbon Dioxide 29.0 BUN 6 L Creatinine 0.4 L Glucose 119 H Calcium 8.4 Liver Function 11/22/24 Range/Units 05:02 Total Bilirubin < 0.2 L (0.3-1.2) mg/dL AST 11 (0-34) U/L ALT 10 (10-49) U/L Alkaline Phosphatase 121 H (46-116) U/L Albumin 3.7 (3.5-5.0) gm/dL Urine 11/22/24 Range/Units 09:05 Urine Color Lt-Yellow (Lt Yel-Yel) Urine Clarity Clear (Clear/Hazy) Urine pH 7.5 H (5.0-7.0) Ur Specific [place] 1.007 (1.001-1.035) Urine Protein Negative (Neg - Trace) Urine Glucose (UA) Negative (Negative) ABG Interpretation ABG results: 11/17/24 11/17/24 11/17/24 14:05 15:48 19:12 ABG pH 7.39 7.47 H 7.44 ABG pCO2 75 H* 61 H D 64 H ABG pO2 166 H 61 L D 73 L ABG HCO3 45 H 44 H 43 H ABG O2 Saturation 100 H 92 95 ABG Base Excess 16 H 18 H 16 H 11/18/24 11/18/24 11/18/24 04:57 16:10 20:10 ABG pH 7.45 7.42 Cancelled ABG pCO2 61 H 62 H Cancelled ABG pO2 100 D 114 H Cancelled ABG HCO3 42 H 39 H Cancelled ABG O2 Saturation 98 99 H Cancelled ABG Base Excess 16 H 13 H Cancelled 11/19/24 04:28 ABG pH 7.43 ABG pCO2 59 H ABG pO2 101 ABG HCO3 39 H ABG O2 Saturation 99 H ABG Base Excess 13 H Assessment & Plan Assessment and plan (1) Hypernatremia: Status: Acute Assessment and plan: Patient has persistent hypernatremia with polyuria. Suspect a central DI especially with history of meningitis, EXTRACTOR MACHINE OPERATOR shunt. 1 dose of DDAVP given. Agree with continuing on free water flushes. Held D5W to prevent osmotic diuresis. (2) Hypercalcemia: Status: Acute Assessment and plan: Resolved (3) Pneumonia: Status: Acute Assessment and plan: On antibiotics. (4) Acute respiratory failure: Status: Acute Assessment and plan: Acute hypoxic respiratory failure-intubated and extubated. Currently on telemetry. (5) Coccidioidomycosis: Status: Acute Assessment and plan: History of disseminated cocci-on fluconazole Additional Assessment & Plan Additional Plan: Will monitor his electrolytes closely. Replace them. Thank you Deedee for allowing me to participate in the care of Mr. Rod
[2024-11-22 11:33] LABS: Sodium 127 mMol/L (136-145)
[2024-11-22] MEDS: DESMOPRESSIN ACETATE 4 MCG/ML VIAL IV (12:25)
[2024-11-22] MEDS: MORPHINE SULF LIQD 10 MG/5 ML UDC 2 MG GT (12:52)
[2024-11-22 16:43] LABS: Sodium 144 mMol/L (136-145)
[2024-11-22] MEDS: ATORVASTATIN CALCIUM 20 MG TABLET 40 MG PO (21:04)
[2024-11-23] VITALS: BP 151/86; PULSE 102; RESP 18; TEMP 36.4; O2SAT 98
[2024-11-23 04:00] VITALS: BP 151/86; PULSE 92; RESP 23; TEMP 36.3; O2SAT 100
[2024-11-23] MEDS: MORPHINE SULF LIQD 10 MG/5 ML UDC 2 MG GT (05:07)
[2024-11-23 06:00] VITALS: BMI 19.0
[2024-11-23 06:07] LABS: Basophils % (Auto) 0 % (0-2.5); Eosinophils # (Auto) 0.4 Thou/mm3 (0.0-0.5); Eosinophils % (Auto) 5 % (0-10); Hematocrit 32.3 % (41.0-53.0); Hemoglobin 10.3 g/dL (13.5-16.0); Immature Granulocytes % (Auto) 1 % (0-0); Immature Granulocytes Auto 0.07 Thou/mm3 (0.00-0.00); Lymphocytes # (Auto) 2.6 Thou/mm3 (1.0-4.8); Lymphocytes % (Auto) 35 % (10-50); Mean Corpuscular HGB Conc 31.9 g/dl (31.0-37.0); Mean Corpuscular Hemoglobin 25.9 pg (25.0-35.0); Mean Corpuscular Volume 81 fL (80-100); Monocytes # (Auto) 0.7 Thou/mm3 (0.0-0.8); Monocytes % (Auto) 9 % (0-12); Neutrophils # (Auto) 3.6 Thou/mm3 (1.8-7.7); Neutrophils % (Auto) 49 % (37-80); Nucleated Red Blood Cell % 0 /100 WBC (0); Platelet Count 391 Thou/mm3 (140-440); RDW Standard Deviation 48.6 fL (35.1-43.9); Red Blood Count 3.97 Miln/mm3 (4.50-5.90); White Blood Count 7.3 Thou/mm3 (3.8-10.6)
[2024-11-23 06:35] LABS: Alanine Aminotransferase 8 U/L (10-49); Albumin, Serum 3.9 gm/dL (3.5-5.0); Albumin/Globulin Ratio 1.3 (1.2-2.2); Alkaline Phosphatase 123 U/L (46-116); Anion Gap 9 (7-16); Aspartate Amino Transferase 11 U/L (0-34); BUN/Creatinine Ratio 23 Ratio (12-20); Bilirubin,Total < 0.2 mg/dL (0.3-1.2); Blood Urea Nitrogen 9 mg/dL (9-23); Calcium 8.4 mg/dL (8.3-10.6); Calcium (Corrected) 8.5 mg/dL (8.5-10.1); Carbon Dioxide 27.6 mMol/L (20.0-31.0); Chloride 104 mMol/L (98-107); Creatinine (Component) 0.4 mg/dL (0.6-1.3); Estimated Creatinine Clearance 178.1 mL/min (>60); Globulin 3.1 gm/dL (2.3-3.5); Glucose 113 mg/dL (74-106); Magnesium 1.8 mg/dL (1.6-2.6); Osmolality,Calculated 280 (275-295); Phosphorous 1.7 mg/dL (2.4-5.1); Potassium 3.9 mMol/L (3.4-5.1); Sodium 141 mMol/L (136-145); eGFR > 60 See Note
[2024-11-23 08:00] VITALS: BP 136/98; PULSE 105; RESP 20; TEMP 36.6; O2SAT 97
[2024-11-23] MEDS: MORPHINE SULF LIQD 10 MG/5 ML UDC GT (08:57)
[2024-11-23] MEDS: DESMOPRESSIN ACETATE 4 MCG/ML VIAL 2 MCG SC (08:58)
[2024-11-23] MEDS: LACTULOSE SYRUP 20 GM/30 ML UDC 10 GM GT (08:58)
[2024-11-23] MEDS: FLUCONAZOLE SUSP 40 MG/ML ML 400 MG GT (08:59)
[2024-11-23] MEDS: LANSOPRAZOLE 30 MG TAB.RAP.DR GT (08:59)
[2024-11-23] MEDS: ENOXAPARIN SOD INJ 40 MG/0.4 ML SYRINGE SC (08:59)
[2024-11-23] MEDS: cefTRIAXone/D5w 1gm IV premix 1 GM/50 ML BAG IV (08:59)
[2024-11-23] MEDS: POTASSIUM PHOS 22.5 MMOL in SODIUM CHLORIDE 0.9% 500 ML 500 ML 82.778 MMOL IV (09:00)
[2024-11-23] MEDS: BALSAM PERU/CASTOR OIL (Venelex) 60 GM TUBE TOP (09:00)
--- NOTE | 2024-11-23 10:26 | PC.SS ---
Addendum entered by Eli Tucker 11/23/24 15:09: Dr. Garber informed [facility] is requesting hospice orders be added to patient's consults. Patient is already connected to [facility]. Clinicals also submitted via [facility] to [facility]. Addendum entered by Eli Tucker 11/23/24 14:31: SS recieved call from MARCIE Goodwin, nancy to confirm if patient will discharge to SNF [facility] with [facility]. SS also informed patient's father Seamus requesting to meet with SS. SS met with patient's father Seamus to confirm if patient will return to SNF [facility] with [facility]. [facility] appointment contact number provided to patient's father. Patient's father interested in applying for SSI on patient's behalf. Patient's father Seamus confirmed patient to return to [facility] with [facility]. [facility] Coordinator requesting hospice orders be sent via Meir . TED Cannon informed patient will discharge with [facility]. Addendum entered by Eli Tucker 11/23/24 11:54: [facility] requested clinicals reflecting feedings. submitted Speech Therapy Notes and Speech Eval via Meir. [facility] stated she'd forward clincals to her Nursing staff for review. If any concerns arise, [facility] agreed to notify SS. ETA 1400 for transportation remains. Addendum entered by Eli Tucker 11/23/24 11:37: [facility] SNF confirmed patient can return to [facility] today. [facility] transportation was contacted to schedule transport, patient is ineligible for non-emergent transport, per [facility]. SNF transport unavailable today. SS contacted [facility] Transportation, [facility] transportation scheduled for 1400. Patient's father Seamus Rod, JANIYA Gibson, MARCIE Goodwin, [facility], and T[facility] Cannon informed of 1400 transportation ETA. Original Note: SS informed by TED Cannon patient is ready for discharge. SS attempted to contact [facility] and [facility] SNF to determine if patient can return to [facility] SNF today, pending response.
--- NOTE | 2024-11-23 11:49 | PD.NEPHPROG ---
Documentation for date of: 11/23/24 Subjective Subjective Interval history: Patient seems to be confused-chart review done and spoke to nurse Extensive medical history-Mr. Rod is a 54 year old gentleman who currently resides at [facility] presented to the emergency department with acute hypoxic respiratory failure was intubated and subsequently extubated and transferred to telemetry. He has past medical history significant for chronic respiratory failure on 3L O2 at baseline, quadriplegia, history of disseminated coccidiomycosis, primary hypertension, [id number] diabetes mellitus type 2, hyperlipidemia, hydrocephalus s/p OUT[employer]URE LEADER shunt and PEG tube Primary team noticed that despite giving free water flushes, D5W patient's sodium continues to be elevated and a nephrology consultation was requested. Patient currently seen in telemetry. He seems to be confused and quadriplegic in bed. Looks older than his stated age. Current medications included Tylenol, atorvastatin, ceftriaxone, Lovenox, lactulose, fluconazole, Prevacid. Upon review he has significant amount of urinary output for the last few days more than 3 L/day Hemoglobin 9.6, platelets 320, WBC 6.7. Sodium 147, potassium 3.5, creatinine 0.4, blood sugar 119, calcium 8.6, phosphorus 1.8, magnesium 2, LFTs normal, albumin 3.7 urinalysis showed specific gravity 1007 chest x-ray showed improvement in the left lung pneumonia. 11/23/2024 patient currently seen in telemetry. Still seems to be confused. Urine output improving. Hemoglobin 10.3, platelets 391. Sodium 141, creatinine 0.4, phosphorus 1.7, magnesium 1.8, LFTs normal. Patient so far received 2 doses of desmopressin. 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 Review of Systems Review of Systems Narrative Review of Systems: Limited due to his mentation Exam Vital Signs Temp Pulse Resp BP Pulse Ox O2 Del Method O2 Flow Rate 36.6 C 105 H 20 136/98 H 97 Nasal Cannula 0.5 11/23/24 08:00 11/23/24 08:00 11/23/24 08:00 11/23/24 08:00 11/23/24 08:00 11/23/24 08:00 11/22/24 16:00 FiO2 30 11/22/24 16:00 Narrative Exam GENERAL APPEARANCE:. Currently in telemetry. Patient seems to have lost weight NECK: Neck supple, no JVD or bruit CARDIOVASCULAR: Heart regular, no murmurs LUNGS/CHEST: Chest clear to auscultation. No rales, rhonchi, wheezing ABDOMEN: Soft, nontender, nondistended. No masses. Normal bowel sounds. PEG tube EXTREMITIES: No edema, clubbing or cyanosis. SKIN: Skin exam normal without any rashes MUSCULOSKELETAL: Contractures with quadriplegia NEUROLOGICAL : confusion noted. Objective Labs 11/23/24 05:07 11/23/24 05:07 Labs: Laboratory Results - last 24 hr 11/22/24 11/23/24 15:46 05:07 WBC 7.3 RBC 3.97 L Hgb 10.3 L Hct 32.3 L MCV 81 MCH 25.9 MCHC 31.9 RDW Std Deviation 48.6 H Plt Count 391 D Neut % (Auto) 49 Lymph % (Auto) 35 Garfield % (Auto) 9 Eos % (Auto) 5 Baso % (Auto) 0 Neut # (Auto) 3.6 Lymph # (Auto) 2.6 Garfield # (Auto) 0.7 Eos # (Auto) 0.4 Baso # (Auto) 0.0 Immature Gran # (Auto) 0.07 H Absolute Nucleated RBC 0.00 Immature Gran % 1 H Nucleated RBC % 0 Sodium 144 D 141 Potassium 3.9 Chloride 104 Carbon Dioxide 27.6 Anion Gap 9 BUN 9 Creatinine 0.4 L Estim Creat Clear Calc 178.1 eGFR > 60 BUN/Creatinine Ratio 23 H Glucose 113 H Calculated Osmolality 280 Calcium 8.4 Corrected Calcium 8.5 Phosphorus 1.7 L Magnesium 1.8 Total Bilirubin < 0.2 L AST 11 ALT 8 L Alkaline Phosphatase 123 H Total Protein 7.0 Albumin 3.9 Globulin 3.1 Albumin/Globulin Ratio 1.3 ABG Interpretation ABG results: 11/17/24 11/17/24 11/17/24 14:05 15:48 19:12 ABG pH 7.39 7.47 H 7.44 ABG pCO2 75 H* 61 H D 64 H ABG pO2 166 H 61 L D 73 L ABG HCO3 45 H 44 H 43 H ABG O2 Saturation 100 H 92 95 ABG Base Excess 16 H 18 H 16 H 11/18/24 11/18/24 11/18/24 04:57 16:10 20:10 ABG pH 7.45 7.42 Cancelled ABG pCO2 61 H 62 H Cancelled ABG pO2 100 D 114 H Cancelled ABG HCO3 42 H 39 H Cancelled ABG O2 Saturation 98 99 H Cancelled ABG Base Excess 16 H 13 H Cancelled 11/19/24 04:28 ABG pH 7.43 ABG pCO2 59 H ABG pO2 101 ABG HCO3 39 H ABG O2 Saturation 99 H ABG Base Excess 13 H Assessment & Plan Assessment and plan (1) Hypernatremia: Status: Acute Assessment and plan: Patient has persistent hypernatremia with polyuria. 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 1 dose of DDAVP given. Agree with continuing on free water flushes. Held D5W to prevent osmotic diuresis. Renal delacruz if patient is going to be discharged-start him on p.o. desmopressin. (2) Hypercalcemia: Status: Acute Assessment and plan: Resolved (3) Pneumonia: Status: Acute Assessment and plan: On antibiotics. (4) Acute respiratory failure: Status: Acute Assessment and plan: Acute hypoxic respiratory failure-intubated and extubated. Currently on telemetry. (5) Coccidioidomycosis: Status: Acute Assessment and plan: History of disseminated cocci-on fluconazole Additional Assessment & Plan Additional Plan: Thank you anne marie for allowing me to participate in the care of Mr. Rod
[2024-11-23 12:00] VITALS: BP 129/91; PULSE 110; RESP 23; TEMP 36.9; O2SAT 97
--- NOTE | 2024-11-23 12:20 | ESDS_ITS ---
Planned Discharge Date 11/23/24 DS: Providers Provider Date of admission: 11/17/24 17:02 Primary care physician: Georgia Crocker MD Admitting Provider: Katia Prado MD Attending Provider on Admission: Katia Prado MD Consults: 11/17/24 13:33 Referral Respiratory Therapy Stat Comment: 11/17/24 17:22 Referral Registered Dietitian Routine Comment: For tube feeds 11/17/24 17:30 Referral Wound Care Stat Comment: 11/19/24 08:00 Referral Speech Therapy Routine Comment: 11/22/24 09:47 Consult to Nephrology Routine Comment: Hypernatremia Consulting Provider: Ritesh Lundberg Attending Provider on DC: Dr. Nacho Gasca DO Discharging Provider: Dr. Nacho Gasca DO DS: Diagnosis Problem List Completed Was Problem List Reviewed/Reconciled?: Yes Hospital Course Hospital Course Hospital course: This is a 54 year-old male with PMHx quadriplegia, chronic respiratory failure on 3L home oxygen, disseminated cocci with cocci menigitis, HTN, HLD, T2DM, hydrocephalus s/p SAMPLER FIRST shunt and PEG tube presented from [facility] on 11/17/24 with fever, hypoxia and diaphoresis, requiring intubation in ICU for suspected aspiration PNA. Extubated and downgraded to floors on 11/19/2024. Completed a course of ANTIBIOTICS for pneumonia, and continued on FLUCONAZOLE for chronic disseminated coccidiomycosis. His symptoms have resolved since admi ssion. Blood, ET secretion, and urine culture remained negative. 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 Nephrology team is following. Sodium was corrected with free water flushes, IVF's, and DESMOPRESSIN. Sodium 141 and stable at the time of discharge. He will continue with DESMOPRESSIN 0.1 mg daily. Recommended repeat renal panel in 1 week, follow-up with nephrology (telehealth) within 1-2 weeks of discharge. Recommended water flushes 75 cc every hour. Patient remained hemodynamically stable, appeared at baseline at the time of discharge. He was discharged to SNF for the [facility].1986 IMAGE FINDINGS: * CXR showed left base pneumonia. * Head CT showed no acute hemorrhage or mass effect, ventriculostomy shunt tube tip right lateral ventricle with no significant ventricular enlargement, small subacute chronic left subdural hygroma, 5 mm in thickness peripheral to the left frontal and parietal lobes. * Initial EKG showed sinus tachycardia with short SC interval, no acute ST depressions. PATIENT INSTRUCTIONS: * Follow-up with PCP within 1-2 weeks of discharge. * Follow-up with Dr. Lundberg (Tele appt) within 1-2 weeks. * Repeat renal panel in 1 week, prior to seeing Dr. Lundberg. * Continue with water flushes at 70 mL every hour. * Continue taking DESMOPRESSIN 0.1 mg daily. * STOP taking FLUCONAZOLE 200 mg every day. * START taking FLUCONAZOLE 400 mg every day indefinitely. * Repeact CMP in 1-3 months to monitor liver functions while on FLUCONAZOLE. * Return to Emergency Room if symptoms persist, worsen, or new symptoms develop. * We started IRON supplements for anemia, please take 1 tablet daily. * Started ATORVASTATIN (ASCVD 16.7% 10-year CVD risk.) for hypertriglyceridemia, TG 233, HDL 18, please take 1 tablet daily at night. * Recommended repeat lipid panel in 6 months. * Continue taking other medications as prescribed below. ADMISSION DIAGNOSES: Acute on chronic respiratory failure S/p Intubation in ICU Likely aspiration pneumonia Chronic respiratory acidosis Chronic disseminated Coccidiomycosis UTI Hypoosmotic hypernatremia Sinus Tachycardia (improved) HTN HLD Electrolyte abnormalities Normocytic anemia Iron deficiency vs. 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 Zahra Garber DO PGYI Time Spent with Patient Time attestation: Total time spent providing and/or coordinating discharge services: Greater than 35 minutes. Time spent: Greater than 30 minutes Quality: Stroke Pt Provided Written Stroke Discharge Instructions: No (STROKE S/S) Exam Vital Signs Temp Pulse Resp BP Pulse Ox O2 Del Method O2 Flow Rate 97.9 F 105 H 20 136/98 H 97 Nasal Cannula 0.5 11/23/24 08:00 11/23/24 08:00 11/23/24 08:00 11/23/24 08:00 11/23/24 08:00 11/23/24 08:00 11/22/24 16:00 FiO2 30 11/22/24 16:00 Discharge Plan Plan Patient Disposition: Xfer Skilled Nsg Fac (SNF) Disposition Comment: Discharge to SNF [facility] Patient condition on transfer: Stable Care Plan Goals: * Follow-up with PCP within 1-2 weeks of discharge. * Follow-up with Dr. Lundberg (Tele appt) within 1-2 weeks. * Repeat renal panel in 1 week, prior to seeing Dr. Lundberg. * Continue with water flushes at 70 mL every hour. * Continue taking DESMOPRESSIN 0.1 mg daily. * STOP taking FLUCONAZOLE 200 mg every day. * START taking FLUCONAZOLE 400 mg every day indefinitely. * Repeact CMP in 1-3 months to monitor liver functions while on FLUCONAZOLE. * Return to Emergency Room if symptoms persist, worsen, or new symptoms develop. * We started IRON supplements for anemia, please take 1 tablet daily. * Started ATORVASTATIN (ASCVD 16.7% 10-year CVD risk.) for hypertriglyceridemia, TG 233, HDL 18, please take 1 tablet daily at night. * Recommended repeat lipid panel in 6 months. * Continue taking other medications as prescribed below. Prescriptions/Referrals Prescriptions/Med Rec: New ferrous sulfate [Feosol] 325 mg (65 mg iron) tablet 325 mg PO QDAY Qty: 30 0RF atorvastatin 40 mg tablet 40 mg PO HS Qty: 30 0RF fluconazole 200 mg tablet 400 mg feeding tube QDAY Qty: 30 0RF Rx Instructions: Take 400 mg (2 tablets) once daily desmopressin 0.1 mg tablet 0.1 mg PO DAILY Qty: 30 0RF Continued bisacodyl 10 mg suppository 10 mg SC Q72H PRN (Reason: constipation) bisacodyl [Dulcolax (bisacodyl)] 10 mg suppository 10 mg SC QDAY PRN (Reason: constipation) Rx Instructions: insert 1 suppository rectally as needed for constipation, to be administered the following shift if MOM is ineffective Fleet Enema 19-7 gram/118 mL enema 118 ml SC Q72H PRN (Reason: constipation) Rx Instructions: insert 1 dose rectally every 72 hrs as needed for constipation, to be administered the following shift if Dulcolax suppository is ineffective, notify MD if no result lorazepam [Ativan] 0.5 mg tablet 0.5 mg PO Q6H PRN (Reason: anxiety) magnesium hydroxide [Milk of Magnesia] 400 mg/5 mL suspension 30 ml PO Q72H PRN (Reason: constipation) Rx Instructions: give 30ml by mouth every 72 hours as needed for constipation no BM for 3 days morphine 20 mg/5 mL (4 mg/mL) solution 1 mg PO Q2H PRN (Reason: pain (scale score 1-3)) morphine 20 mg/5 mL (4 mg/mL) solution 2 mg PO Q2H PRN (Reason: pain (scale score 4-6)) morphine 20 mg/5 mL (4 mg/mL) solution 4 mg PO Q2H PRN (Reason: pain (scale score 7-10)) Discontinued fluconazole [Diflucan] 200 mg tablet 200 mg PO QDAY Referrals: Georgia Crocker MD [Primary Care Provider] - Patient/Caregiver Discharge Instructions Education Materials: Preventing Pneumonia, When You Have Pneumonia, Understanding Coccidioidomycosis Print Language: Hungarian Activity Restrictions/Additional Instructions: renal panel in 1weeek f/u with dr. lundberg in 2 weeks( Tele appt) Stand Alone Forms: [employer] Award Info., Patient Portal Info Letter Discharge Order Discharge Orders: Discharge (Routine); Ordered 11/23/24 Ordered By: Zahra Garber Quality Discharge Quality Measures VTE prophylaxis Attestestation MD Attestation I have discussed and was present for the essential components of the discharge history, physical examination, diagnosis, and discharge treatment plan with the resident. I agree with the patient's discharge care as documented by the resident and amended herein by me. Bigg Gasca DO. The patient understood all discharge instructions, all questions were answered satisfactorily. The patient was instructed to return to the Emergency Department is symptoms worsened or persisted. Patient was stable and afebrile at time of discharge to SNF. Patient will continue fluconazole 400 mg daily via feeding tube for coccidiomycosis. Patient has also been started on desmopressin, a small dose of 0.1 mg p.o. 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 Atorvastatin and ferrous sulfate has also been added, see medication reconciliation above. Patient should return to the emergency department for any persistent or worsening symptoms. Although this document has been carefully reviewed, there may still be some phonetic and other typographical errors. These errors are purely grammatical due to imperfections in the software program and should not be construed in any way to compromise the substance of the patient's medical care during this visit.
--- NOTE | 2024-11-23 12:52 | PC.NURSE ---
CALLED [facility] TO CALL FOR REPORT. SPOKE WITH MARIANO SANDOVAL AND GAVE SBAR REPORT OF PATIENT AND DISCHARGE INSTRUCTIONS. ALL QUESTIONS ANSWSERED AND GAVE ETA PICKUP TIME OF 1400.
== END 2024-11-23 14:35 | disposition skilled nursing facility (03) | DRG 720 ==
LOC: SERX 17:58 → SERHOLD 17:59 → S2SX 20:06 → S2NX 11-19 16:17
PROVIDERS: Student in an Organized Health Care Education/Training Program; Admitting Provider Internal Medicine; Emergency Provider Family Medicine; PCP Hospitalist; Visit Provider Internal Medicine
DX: A41.9 Sepsis, unspecified organism (principal); J96.21 Acute and chronic respiratory failure with hypoxia; G91.9 Hydrocephalus, unspecified; E78.5 Hyperlipidemia, unspecified; I10 Essential (primary) hypertension; G82.50 Quadriplegia, unspecified; Z93.1 Gastrostomy status; Z79.84 Long term (current) use of oral hypoglycemic drugs; J96.22 Acute and chronic respiratory failure with hypercapnia; Z98.2 Presence of cerebrospinal fluid drainage device; L89.322 Pressure ulcer of left buttock, stage 2; L89.312 Pressure ulcer of right buttock, stage 2; E87.8 Other disorders of electrolyte and fluid balance, not elsewhere classified; D63.8 Anemia in other chronic diseases classified elsewhere; B38.7 Disseminated coccidioidomycosis; K59.09 Other constipation; E83.52 Hypercalcemia; N39.0 Urinary tract infection, site not specified; D64.9 Anemia, unspecified; E11.01 Type 2 diabetes mellitus with hyperosmolarity with coma; E23.2 Diabetes insipidus; E78.1 Pure hyperglyceridemia; E86.0 Dehydration; E87.1 Hypo-osmolality and hyponatremia; E87.4 Mixed disorder of acid-base balance; E87.6 Hypokalemia; D32.9 Benign neoplasm of meninges, unspecified; G03.9 Meningitis, unspecified; G96.08 Other cranial cerebrospinal fluid leak; J69.0 Pneumonitis due to inhalation of food and vomit; R65.20 Severe sepsis without septic shock; S80.211A Abrasion, right knee, initial encounter; S80.212A Abrasion, left knee, initial encounter; Z99.81 Dependence on supplemental oxygen; J18.9 Pneumonia, unspecified organism
CPT/HCPCS: 36415; 36600; 70450; 71045; 80053; 80061; 80069; 81001; 82270; 82436; 82607; 82746; 82803; 83036; 83540; 83550; 83735; 83880; 84100; 84133; 84145; 84295; 84300; 84484; 85025; 85046; 85610; 85730; 87040; 87081; 87086; 87205; 87400; 87811; 92526; 92610; 93005; 94002; 94003; 94640; 94660; 96361; 96365; 96366; 96372; 96375; 99291; J0330; J0456; J0696; J1650; J1815; J2430; J2470; J2543; J2597; J2704; J3370; J3475; J3480; J3490; J7030; J7040; J7050; J7070; A9270